=== PATIENT | male | born 1955 | race Caucasian/White ===

== ENCOUNTER 2023-11-25 13:44 | Outpatient (AMB) | payer MEDICARE, SELFPAY ==
--- NOTE | 2023-11-25 13:49 | A.OFFVIS_ITS ---
Vital Signs 11/25/23 14:02 Height 5 ft 9 in Weight 177 lb 2 oz BMI 26.2 BP 183/97 H Blood Pressure Location Rt brachial Position Sitting Pulse 83 Pulse Source Pulse Oximeter Pulse Oximetry (%) 96 Oxygen Delivery Method Room Air Intake Visit Reasons: Chronic Chest Pain After Surgery Intake Note: Pain today 12/26 [employer] Required: No Accompanied by: Self / Same As Patient Allergies clindamycin Allergy (Unknown, Verified 11/25/23 13:51) Unknown HPI HPI Chronic Chest Pain After Surgery: Details: Patient is a 68 years old male with history of CABGx5, mechanical fall from ladder and subsequent osteomyelitis of sternum which resulted in blunt chest trauma (02/10/23), complicated by open wound sternum and mediastinum 30 cm x 8 cm, with exposed heart, s/p reconstruction anterior chest wall with bilateral pectoralis major myocutaneous flap and open biopsy of sternum bone and treatment of sternum osteomyelitis, presents today for initial evaluation of chronic chest pain. He underwent 12 surgeries, wound Vac therapy and flap procedure and was [place] [facility] [place] this time. In July 2023, he underwent C6-C7 ACDF for disc herniation by Dr. Suero, [facility] He also had L5-S1 lumbar fusion with 2 screws and a raul in 2018. Denies any recent trauma, injury or falls. Chest wall pain has been chronic and unbearable since 01/2023. He is unable to sleep at night due to pain. Since reconstructive chest surgery, he has difficulty lifting his arms above heart level which causes increase pain in his shoulders. Patient has been taking Tylenol, gabapentin, ad mirtazapine with mild relief. He is has pending liver US to follow up on chronically elevated liver enzymes (ALP) and previous cholecystectomy in 2020. Patient is interested in interventional treatments to address his chest wall pain. Denies any fever, chills, chest pain, dizziness, shortness of breaths, visual disturbances, nausea, weakness, bladder or bowel dysfunction or saddle anesthesia. Location: Chest s/p plastic surgery after treatment for osteomyelitis of sternum Duration: Chronic, constant, unbearable since February 2023 Characteristics of symptom or complaint: Aching, stabbing, tightness, dull, sore, heavy, squeezing, tiring Aggravating or associated factors: Movements, standing, pulling, coughing, sneezing, lifting arms, sleeping Relieving factors: Tried opioids, gabapentin 100 mg TID, supportive pillow Treatment: PT and Cardiac rehab [address] [facility] Medical History (Updated 11/25/23 @ 14:40 by HORACIO Baxter) Chest pain Blunt chest trauma Hyperlipidemia COPD (chronic obstructive pulmonary disease) IBS (irritable bowel syndrome) Insomnia Tobacco abuse disorder Hypertension Hematuria History of esophageal reflux Depression Back pain Apnea ASHD (arteriosclerotic heart disease) Asthma Surgical History (Updated 11/25/23 @ 20:32 by HORACIO Baxter) History of thoracic surgery (~01/2023) Hx of cholecystectomy (~2020) S/P CABG x 5 (~12/2022) Social History (Updated 11/25/23 @ 14:15 by Traci Smith) Alcohol intake: current Alcohol intake frequency: holidays/special occasions only Patient Tobacco Use Status: Current someday Tobacco user Tobacco use type: Cigarette Review of Systems Const All systems reviewed & are unremarkable except as noted in HPI and below Physical Exam Vital Signs: Last Vital Signs Pulse 83 11/25/23 14:02 BP 183/97 H 11/25/23 14:02 Pulse Ox 96 11/25/23 14:02 Oxygen Delivery Method Room Air 11/25/23 14:02 BMI result Body Mass Index 26.2 General: Appears afebrile. Alert and oriented. Mood and affect appropriate. Follows and participates in conversation appropriately. Respiratory effort is unlabored. No cough. Able to transition from sit to stand unassisted. Ambulates with bilaterally normal heel strike and toe off. Chest Other: Chest wall deformity r/t previous surgeries. Multiple well healed scars to chest wall and RUQ. +Allodynia with skin discoloration distal thoracic midline scars. Chest palpation & inspection: abnormal inspection of the chest pigeon chest (pectus carinatum), tenderness sternum and costochondral junction and No rash Resp Effort & Inspection: normal respiratory effort, able to speak in complete sentences, no cough, no respiratory distress and no use of accessory muscles General: Yes no CVA tenderness Back/Spine/Pelvis Back: no CVA tenderness Cervical Spine: loss of normal cervical lordosis, cervical muscular tenderness, Cervical spine scars present and No Cervical spine tenderness Thoracic/Lumbar Spine: thoracic and lumbar spine normal to inspection, Thoracic/lumbar spine scar(s), kyphosis, Thoracic/lumbar scoliosis, thoracic spinal tenderness (mid thoracic) and No lumbar spinal tenderness Extrem General: Yes capillary refill normal, Yes no clubbing, cyanosis or edema and Yes no calf tenderness Assessment & Plan Assessment & Plan (1) Chronic chest wall pain: Code(s): R07.89 - Other chest pain; G89.29 - Other chronic pain Category: Medical (2) Bilateral shoulder pain: Code(s): M25.511 - Pain in right shoulder; M25.512 - Pain in left shoulder Category: Medical (3) History of thoracic surgery: Onset Date: ~01/2023 Comment: [facility] [place]: open wound sternum and mediastinum 30 cm x 8 cm, with exposed heart, s/p reconstruction anterior chest wall with bilateral pectoralis major myocutaneous flap and open biopsy of sternum bone and treatment of osteomyelitis of sternum Code(s): Z98.890 - Other specified postprocedural states Category: Surgical Plan Schedule Pectoral Interfascial Plane Block with local and US guidance. Expectations, risks and benefits were reviewed. Patient is aware he will be contacted to schedule this procedure. All questions were answered and the p atient is in agreement of plan. Follow-up after injections and sooner as needed. Anticoagulation: Patient on anticoagulation (Aspirin) and instructions given on when to pause with prescribing physician permission (Dr. Art-[facility]). Justification for interventional therapy: ? Patient with average pain > 6/10 ? Patient has exhausted conservative therapy The risks, consequences, alternatives, and benefits of various treatment options were discussed with the patient in great detail, including conservative management, injections and procedures. Medications: New diclofenac sodium 1% (Arthritis Pain (diclofenac)) 4 grams topical QID 100 grams 1RF pain M25.511 - Pain in right shoulder, M25.512 - Pain in left shoulder capsaicin 0.1% (Arthritis Pain Relief (capsaicin)) do not wash area for at least 30 min after application 1 appl topical TID 60 grams 1RF pain G89.29 - Other chronic pain, R07.89 - Other chest pain Coding Level of Care Code New Pt Level 4 (57081) Diagnoses Chronic chest wall pain R07.89; G89.29 Bilateral shoulder pain M25.511; M25.512 History of thoracic surgery Z98.890
[2023-11-25 14:02] VITALS: BP 183/97; PULSE 83; O2SAT 96; BMI 26.2
== END 2023-11-25 14:48 | disposition home or self-care (01) ==
PROVIDERS: PCP Internal Medicine; Visit Provider Nurse Practitioner Family
DX: R07.89 Other chest pain (principal); G89.29 Other chronic pain; M25.511 Pain in right shoulder; M25.512 Pain in left shoulder; Z98.890 Other specified postprocedural states
CPT/HCPCS: 99204

== ENCOUNTER → 2023-11-25 13:44 | Outpatient (BNVA) | payer MEDICARE, SELFPAY | PROVIDERS: PCP Internal Medicine; Visit Provider Nurse Practitioner Family | DX: R07.89 Other chest pain (principal); M25.511 Pain in right shoulder; M25.512 Pain in left shoulder; G89.29 Other chronic pain; Z98.890 Other specified postprocedural states | CPT/HCPCS: 99202 ==

== ENCOUNTER 2023-12-12 09:59 | Outpatient (AMB) | payer MEDICARE, SELFPAY ==
--- NOTE | 2023-12-12 10:04 | A.OFFVIS_ITS ---
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 He has a history of CABGx5, mechanical fall from ladder, and subsequent osteomyelitis of the sternum, which resulted in blunt chest trauma (02/10/23), complicated by open wound sternum and mediastinum 30 cm x 8 cm with exposed heart, s/p reconstruction of the of the anterior chest wall with bilateral pectoralis major myocutaneous flap, and an open biopsy of the sternum bone and treatment of sternum osteomyelitis. He underwent 12 surgeries, wound vac therapy, and a flap procedure and was hospitalized at [facility] for one month during this time. In July 2023, he underwent C6-C7 ACDF for disc herniation by Dr. Suero, [facility]. He also had L5-S1 lumbar fusion with 2 screws and a raul in 2018. His chest wall pain has been chronic and unbearable since 01/2023. He is unable to sleep at night due to pain. Since reconstructive chest surgery, he has difficulty lifting his arms above heart level, which causes increased pain in his shoulders. He is unable to lay down flat on the surface. He wakes up at night with severe pain in his arm. He has been taking Tylenol, gabapentin, and mirtazapine with mild relief. He has not tried spinal cord stimulator devices in the past. COUNTS INCLUDE 234 BEDS AT THE [facility] Medical History (Updated 11/25/23 @ 14:40 by HORACIO Baxter) Chest pain Blunt chest trauma Hyperlipidemia COPD (chronic obstructive pulmonary disease) IBS (irritable bowel syndrome) Insomnia Tobacco abuse disorder Hypertension Hematuria History of esophageal reflux Depression Back pain Apnea ASHD (arteriosclerotic heart disease) Asthma Surgical History (Updated 11/25/23 @ 20:32 by HORACIO Baxter) History of thoracic surgery (~01/2023) Hx of cholecystectomy (~2020) S/P CABG x 5 (~12/2022) Social History (Updated 11/25/23 @ 14:15 by Traci Smith) Alcohol intake: current Alcohol intake frequency: holidays/special occasions only Patient Tobacco Use Status: Current someday Tobacco user Tobacco use type: Cigarette Review of Systems Const All systems reviewed & are unremarkable except as noted in HPI and below Physical Exam Vital Signs: Last Vital Signs Pulse 109 H 12/12/23 10:06 BP 187/101 H 12/12/23 10:06 Pulse Ox 94 12/12/23 10:06 Oxygen Delivery Method Room Air 12/12/23 10:06 BMI result Body Mass Index 25.1 General: Appears afebrile. Alert and oriented. Mood and affect appropriate. Follows and participates in conversation appropriately. Respiratory effort is unlabored. Able to transition from sit to stand unassisted. Ambulates with bilaterally normal heel strike and toe off. Results Reviewed Results Reviewed: No imaging is available for review. Assessment & Plan Assessment & Plan (1) Chronic chest wall pain: Code(s): R07.89 - Other chest pain; G89.29 - Other chronic pain Category: Medical Plan Discussed SCS and intrathecal drug delivery as possible treatment options. I provided the patient with a brochure for SCS and he requested time to think about it. He called us 2 days later to inform that he is not interested in proceeding with spinal cord stimulation. The only other potential therapeutic option is systemic low-dose opioid therapy. I did not specifically discuss this with the patient but it could be considered if he is willing to comply with the requirements for chronic opiate program. He will follow-up as needed with Sarah Dumas NP. Scribed for Dr. Liang by Cuco Aleman, director medical safety, on 12/12/2023. I, Dr. Liang, have personally reviewed and agree with the information entered by the scribe. Coding Level of Care Code Est Pt Level 3 (06380) Diagnoses Chronic chest wall pain R07.89; G89.29
[2023-12-12 10:06] VITALS: BP 187/101; PULSE 109; O2SAT 94; BMI 25.1
== END 2023-12-12 10:48 | disposition home or self-care (01) ==
PROVIDERS: PCP Internal Medicine; Visit Provider Internal Medicine
DX: R07.89 Other chest pain (principal); G89.29 Other chronic pain
CPT/HCPCS: 99213

== ENCOUNTER → 2023-12-12 09:59 | Outpatient (BNVA) | payer MEDICARE, SELFPAY | PROVIDERS: PCP Internal Medicine; Visit Provider Internal Medicine | DX: R07.89 Other chest pain (principal); G89.29 Other chronic pain | CPT/HCPCS: 99212; J2795; J3301 ==

== ENCOUNTER 2023-12-16 10:24 | Outpatient (REF) | payer MEDICARE, SELFPAY | END 2023-12-16 10:25 | disposition home or self-care (01) | LOC: HO.LAB 10:24 | PROVIDERS: PCP Internal Medicine; Visit Provider Internal Medicine | DX: Z13.89 Encounter for screening for other disorder (principal) ==

== ENCOUNTER 2024-01-02 10:14 | Outpatient (AMB) | payer MEDICARE, SELFPAY ==
--- NOTE | 2024-01-02 10:16 | MHC.OFFVIS ---
Vital Signs 01/02/24 10:18 Height 5 ft 9 in Weight 177 lb BMI 26.1 BP 140/88 H Blood Pressure Location Rt brachial Position Sitting Respiration 15 Pulse 112 H Pulse Source Pulse Oximeter Pulse Oximetry (%) 92 Oxygen Delivery Method Room Air Intake Visit Reasons: UDS review/opioid contract Allergies clindamycin Allergy (Unknown, Verified 01/02/24 10:21) Unknown Medication List - Last Reconciled 01/02/24 by Gia Talley LPN alpha lipoic acid 600 mg PO DAILY ascorbic acid (vitamin C) mg PO aspirin 81 mg PO DAILY atorvastatin 80 mg PO DAILY capsaicin 0.1% (Arthritis Pain Relief (capsaicin)) 1 appl topical TID diclofenac sodium 1% (Arthritis Pain (diclofenac)) 4 grams topical QID fluticasone propionate 50 mcg/actuation 2 sprays intranasal DAILY gabapentin 100 mg PO TID lisinopril 5 mg PO DAILY metoprolol tartrate 75 mg PO DAILY mirtazapine 7.5 mg PO BEDTIME omeprazole 20 mg PO DAILY terazosin 5 mg PO BID HPI HPI UDS review/opioid contract: Details: 68-year-old male who presents today to the office for a UDS review and opioid contract. He tried to lay down on his chest but lasted only two seconds with support, so he is unable to proceed with the pain pump or SCS device trial. He is currently taking gabapentin 300 mg once daily. He wants to increase his dose of gabapentin 300 mg to T.I.D. He denies any history of kidney disease. He occasionally takes Tylenol as needed for headaches. He has regular bowel movements. COUNT INCLUDES [facility] Medical History (Updated 11/25/23 @ 14:40 by HORACIO Baxter) Chest pain Blunt chest trauma Hyperlipidemia COPD (chronic obstructive pulmonary disease) IBS (irritable bowel syndrome) Insomnia Tobacco abuse disorder Hypertension Hematuria History of esophageal reflux Depression Back pain Apnea ASHD (arteriosclerotic heart disease) Asthma Surgical History (Updated 11/25/23 @ 20:32 by HORACIO Baxter) History of thoracic surgery (~01/2023) Hx of cholecystectomy (~2020) S/P CABG x 5 (~12/2022) Social History (Updated 11/25/23 @ 14:15 by Traci Smith) Alcohol intake: current Alcohol intake frequency: holidays/special occasions only Patient Tobacco Use Status: Current someday Tobacco user Tobacco use type: Cigarette Review of Systems Const All systems reviewed & are unremarkable except as noted in HPI and below Physical Exam Vital Signs: Last Vital Signs Pulse 112 H 01/02/24 10:18 Resp 15 01/02/24 10:18 BP 140/88 H 01/02/24 10:18 Pulse Ox 92 01/02/24 10:18 Oxygen Delivery Method Room Air 01/02/24 10:18 BMI result Body Mass Index 26.1 General: Appears afebrile. Alert and oriented. Mood and affect appropriate. Follows and participates in conversation appropriately. Respiratory effort is unlabored. Able to transition from sit to stand unassisted. Ambulates with bilaterally normal heel strike and toe off. Results Reviewed Results Reviewed: No imaging is available for review. Assessment & Plan Assessment & Plan (1) Chronic chest wall pain: Code(s): R07.89 - Other chest pain; G89.29 - Other chronic pain Category: Medical Plan Prescription opioid risk assessment and opioid contract paperwork was reviewed with and signed by the patient. I uptitrated the dose of the gabapentin 300 mg from once daily. Advised him to take gabapentin 300 mg B.I.D. for the first one week and then increase it to 300 mg T.I.D. I prescribed Percocet 5 mg B.I.D. If he tolerates it well, he needs to follow up monthly for the pill count and refill. I advised him to hold Percocet until he reaches the highest dose of the gabapentin. Follow up in one month with Sarah. Scribed for Dr. Liang by Cuco Aleman, medical interpreter, on 01/02/2024. I, Dr. Liang, have personally reviewed and agree with the information entered by the scribe. Medications: New gabapentin 300 mg PO TID 90 caps 0RF oxycodone-acetaminophen 5-325 mg Partial Fill upon patient request. 1 tab PO BID PRN 60 tabs 0RF pain Scribe Plan - Not visible on output: . Coding Level of Care Code Est Pt Level 4 (23992) Diagnoses Chronic chest wall pain R07.89; G89.29
[2024-01-02 10:18] VITALS: BP 140/88; PULSE 112; RESP 15; O2SAT 92; BMI 26.1
== END 2024-01-02 10:42 | disposition home or self-care (01) ==
PROVIDERS: PCP Internal Medicine; Visit Provider Internal Medicine
DX: R07.89 Other chest pain (principal); G89.29 Other chronic pain
CPT/HCPCS: 99214

== ENCOUNTER → 2024-01-02 10:14 | Outpatient (BNVA) | payer MEDICARE, SELFPAY | PROVIDERS: PCP Internal Medicine; Visit Provider Internal Medicine | DX: R07.89 Other chest pain (principal); G89.29 Other chronic pain; Z79.899 Other long term (current) drug therapy | CPT/HCPCS: 99212 ==

== ENCOUNTER 2024-01-30 10:17 | Outpatient (AMB) | payer MEDICARE, SELFPAY ==
--- NOTE | 2024-01-30 10:18 | A.OFFVIS_ITS ---
Vital Signs 01/30/24 10:27 01/30/24 10:28 01/30/24 10:49 Height 5 ft 9 in Weight 174 lb BMI 25.7 BP 193/95 H 190/79 H 126/82 Blood Pressure Location Rt brachial Lt brachial Lt brachial Position Sitting Sitting Sitting Pulse 82 82 Pulse Source Pulse Oximeter Pulse Oximeter Pulse Oximetry (%) 98 Oxygen Delivery Method Room Air Comment BP manual cuff Intake Visit Reasons: Pill Count Intake Note: Wilfredo comes in today for a pill count to oxycodone-acetaminophen, patient should have 18 tablets and presents with 29 tablets which he last took today 01/30/24 8am. Pain today 4/10 [employer] Required: No Accompanied by: Self / Same As Patient Allergies clindamycin Allergy (Unknown, Verified 01/30/24 10:28) Unknown HPI Comments Details: Patient presents today for a pill count. Patient is supposed to have #18 pills, in his possession has #29 pills. This demonstrates a responsible attitude in regards to the medication regimen. Patient continues to report reasonable pain relief on his regimen of oxycodone-acetaminophen 5-325 mg 1 tab BID prn with no noted side effects. Denies any constipation, nausea, sedation, dizziness, or urinary retention. Reports regular BMs, twice daily. Recent A1C=6.4. Patient reports opioid medication allows him to be less symptomatic and more functional. Pain is rated at 4/10. He also takes gabapentin with good tolerance and no side effects. Denies any recent cough, cold, infection, fever, any significant changes in her medical history, medications or recent hospitalizations. PRIOR Dr. Liang: 68-year-old male who presents today to the office for a UDS review and opioid contract. He tried to lay down on his chest but lasted only two seconds with support, so he is unable to proceed with the pain pump or SCS device trial. He is currently taking gabapentin 300 mg once daily. He wants to increase his dose of gabapentin 300 mg to T.I.D. He denies any history of kidney disease. He occasionally takes Tylenol as needed for headaches. He has regular bowel movements. PRIOR: 68-year-old male who presents today to the office for a post-sternotomy pain. He has a history of CABGx5, mechanical fall from ladder, and subsequent osteomyelitis of the sternum, which resulted in blunt chest trauma (02/10/23), complicated by open wound sternum and mediastinum 30 cm x 8 cm with exposed heart, s/p reconstruction of the of the anterior chest wall with bilateral pectoralis major myocutaneous flap, and an open biopsy of the sternum bone and treatment of sternum osteomyelitis. He underwent 12 surgeries, wound vac therapy, and a flap procedure and [place] [facility] [place]. In July 2023, he underwent C6-C7 ACDF for disc herniation [place] Dr. Suero, [facility] [place] He also had L5-S1 lumbar fusion with 2 screws and a raul in 2018. His chest wall pain has been chronic and unbearable since 01/2023. He is unable to sleep at night due to pain. Since reconstructive chest surgery, he has difficulty lifting his arms above heart level, which causes increased pain in his shoulders. He is unable to lay down flat on the surface. He wakes up at night with severe pain in his arm. He has been taking Tylenol, gabapentin, and mirtazapine with mild relief. He has not tried spinal cord stimulator devices in the past. [facility] Medical History Chest pain Blunt chest trauma Hyperlipidemia COPD (chronic obstructive pulmonary disease) IBS (irritable bowel syndrome) Insomnia Tobacco abuse disorder Hypertension Hematuria History of esophageal reflux Depression Back pain Apnea ASHD (arteriosclerotic heart disease) Asthma Surgical History History of thoracic surgery (~01/2023) Hx of cholecystectomy (~2020) S/P CABG x 5 (~12/2022) Social History Alcohol intake: current Alcohol intake frequency: holidays/special occasions only Patient Tobacco Use Status: Current someday Tobacco user Tobacco use type: Cigarette Review of Systems Const All systems reviewed & are unremarkable except as noted in HPI and below Physical Exam Vital Signs: Last Vital Signs Pulse 82 01/30/24 10:28 BP 190/79 H 01/30/24 10:28 Pulse Ox 98 01/30/24 10:27 Oxygen Delivery Method Room Air 01/30/24 10:27 BMI result Body Mass Index 25.7 General: Appears afebrile. Alert and oriented. Mood and affect appropriate. Follows and participates in conversation appropriately. Respiratory effort is unlabored. Able to transition from sit to stand unassisted. Ambulates with bilaterally normal heel strike and toe off. Results Reviewed Results Reviewed: No imaging is available for review. Assessment & Plan Assessment & Plan (1) Chronic chest wall pain: Code(s): R07.89 - Other chest pain; G89.29 - Other chronic pain Category: Medical (2) Bilateral shoulder pain: Code(s): M25.511 - Pain in right shoulder; M25.512 - Pain in left shoulder Category: Medical (3) History of thoracic surgery: Onset Date: ~01/2023 Comment[place] [facility] [place] open wound sternum and mediastinum 30 cm x 8 cm, with exposed heart, s/p reconstruction anterior chest wall with bilateral pectoralis major myocutaneous flap and open biopsy of sternum bone and treatment of osteomyelitis of sternum Code(s): Z98.890 - Other specified postprocedural states Category: Surgical Plan Patient has shown accountability for her medication regimen and the pill count was accurate. There is no evidence of misuse, abuse or diversion at this time. [employer] reviewed. Refill for Percocet 5 mg-325 mg BID prn is sent with advanced date of 02/11/24. Patient is aware of monitoring for side effects. Narcan sent today, educated patient on its use and administration. Refill sent for gabapentin per patient's request. All questions were answered and the patient is in agreement with the plan. Follow up in 4 weeks for pill count and sooner as needed. Medications: New naloxone 4 mg/actuation (Narcan) spray 1 dose into ONE nostril; alternate nostrils w each dose until help arrives 4 mg intranasal Q2M PRN 2 ea 0RF opioid overdose Changed From gabapentin 300 mg PO TID 90 caps 0RF G89.29 - Other chronic pain, R07.89 - Other chest pain, Z98.890 - Other specified postprocedural states To gabapentin 300 mg PO TID 30 days 90 caps 3RF pain G89.29 - Other chronic pain, R07.89 - Other chest pain, Z98.890 - Other specified postprocedural states From oxycodone-acetaminophen 5-325 mg Partial Fill upon patient request. 1 tab PO BID PRN 60 tabs 0RF pain G89.29 - Other chronic pain, M25.511 - Pain in right shoulder, M25.512 - Pain in left shoulder, R07.89 - Other chest pain, Z98.890 - Other specified postprocedural states To oxycodone-acetaminophen 5-325 mg Partial Fill upon patient request. 1 tab PO BID 30 days PRN 60 tabs 0RF pain G89.29 - Other chronic pain, M25.511 - Pain in right shoulder, M25.512 - Pain in left shoulder, R07.89 - Other chest pain, Z98.890 - Other specified postprocedural states Scribe Plan - Not visible on output: . Coding Level of Care Code Est Pt Level 4 (46621) Complex EM visit Add On G2211 Diagnoses Chronic chest wall pain R07.89; G89.29 Bilateral shoulder pain M25.511; M25.512 History of thoracic surgery Z98.890
[2024-01-30 10:27] VITALS: BP 193/95; PULSE 82; O2SAT 98; BMI 25.7
[2024-01-30 10:28] VITALS: BP 190/79; PULSE 82
[2024-01-30 10:49] VITALS: BP 126/82
== END 2024-01-30 10:53 | disposition home or self-care (01) ==
PROVIDERS: PCP Internal Medicine; Visit Provider Nurse Practitioner Family
DX: R07.89 Other chest pain (principal); G89.29 Other chronic pain; M25.511 Pain in right shoulder; M25.512 Pain in left shoulder; Z98.890 Other specified postprocedural states
CPT/HCPCS: 99214; G2211

== ENCOUNTER → 2024-01-30 10:17 | Outpatient (BNVA) | payer MEDICARE, SELFPAY | PROVIDERS: PCP Internal Medicine; Visit Provider Nurse Practitioner Family | DX: R07.89 Other chest pain (principal); G89.29 Other chronic pain; M25.511 Pain in right shoulder; M25.512 Pain in left shoulder; Z51.81 Encounter for therapeutic drug level monitoring; Z79.891 Long term (current) use of opiate analgesic; Z98.890 Other specified postprocedural states | CPT/HCPCS: 99212 ==

== ENCOUNTER 2024-02-27 10:21 | Outpatient (AMB) | payer MEDICARE, SELFPAY ==
--- NOTE | 2024-02-27 10:23 | A.OFFVIS_ITS ---
Vital Signs 02/27/24 10:34 02/27/24 10:35 Height 5 ft 9 in Weight 174 lb BMI 25.7 BP 210/112 H 150/78 H Blood Pressure Location Rt brachial Lt brachial Position Sitting Sitting Pulse 101 H Pulse Source Pulse Oximeter Pulse Oximetry (%) 96 Oxygen Delivery Method Room Air Comment BP recheck manually Intake Visit Reasons: Pill Count Intake Note: Wilfredo comes in today for a pill count to oxycodone-acetaminophen, patient should have 32 tablets and presents with 41 tablets which he last took today 03/09/24 at 8:15am. 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 Patient is supposed to have #32 pills, in his possession has #41 pills. This demonstrates a responsible attitude in regards to the medication regimen. Patient continues to report adequate analgesia on his current regimen of oxycodone-acetaminophen 5-325 mg 1 tab BID prn with no noted side effects. Denies any constipation, nausea, sedation, dizziness, or urinary retention. Patient reports opioid medication allows him to be less symptomatic and more functional. Pain is rated at 4/10. He also takes gabapentin with good tolerance and no side effects. Patient reports he recently completed Holter monitoring and due to Echo in April per Cardiology. He also underwent recent Pulmonary evaluation and was started on Combivent. Denies any recent cough, cold, infection, fever, or any other significant changes in her medical history, medications or recent hospitalizations. PRIOR Dr. Liang: 68-year-old male who presents today to the office for a UDS review and opioid contract. He tried to lay down on his chest but lasted only two seconds with support, so he is unable to proceed with the pain pump or SCS device trial. He is currently taking gabapentin 300 mg once daily. He wants to increase his dose of gabapentin 300 mg to T.I.D. He denies any history of kidney disease. He occasionally takes Tylenol as needed for headaches. He has regular bowel movements. PRIOR: 68-year-old male who presents today to the office for a post-sternotomy pain. He has a history of CABGx5, mechanical fall from ladder, and subsequent osteomyelitis of the sternum, which resulted in blunt chest trauma (02/10/23), complicated by open wound sternum and mediastinum 30 cm x 8 cm with exposed heart, s/p reconstruction of the of the anterior chest wall with bilateral pectoralis major myocutaneous flap, and an open biopsy of the sternum bone and treatment of sternum osteomyelitis. He underwent 12 surgeries, wound vac therapy, and a flap procedure and was hospitalized at [facility] [place] for one month during this time. In July 2023, he underwent C6-C7 ACDF for disc herniation by Dr. Suero, [facility] [place]. He also had L5-S1 lumbar fusion with 2 screws and a raul in 2018. His chest wall pain has been chronic and unbearable since 01/2023. He is unable to sleep at night due to pain. Since reconstructive chest surgery, he has difficulty lifting his arms above heart level, which causes increased pain in his shoulders. He is unable to lay down flat on the surface. He wakes up at night with severe pain in his arm. He has been taking Tylenol, gabapentin, and mirtazapine with mild relief. He has not tried spinal cord stimulator devices in the past. [facility] Medical History Chest pain Blunt chest trauma Hyperlipidemia COPD (chronic obstructive pulmonary disease) IBS (irritable bowel syndrome) Insomnia Tobacco abuse disorder Hypertension Hematuria History of esophageal reflux Depression Back pain Apnea ASHD (arteriosclerotic heart disease) Asthma Surgical History History of thoracic surgery (~01/2023) Hx of cholecystectomy (~2020) S/P CABG x 5 (~12/2022) Social History Alcohol intake: current Alcohol intake frequency: holidays/special occasions only Patient Tobacco Use Status: Current someday Tobacco user Tobacco use type: Cigarette Review of Systems Const All systems reviewed & are unremarkable except as noted in HPI and below Physical Exam Vital Signs: Last Vital Signs Pulse 101 H 02/27/24 10:34 BP 150/78 H 02/27/24 10:35 Pulse Ox 96 02/27/24 10:34 Oxygen Delivery Method Room Air 02/27/24 10:34 BMI result Body Mass Index 25.7 General: Appears afebrile. Alert and oriented. Mood and affect appropriate. Follows and participates in conversation appropriately. Respiratory effort is unlabored. Able to transition from sit to stand unassisted. Ambulates with bilaterally normal heel strike and toe off. Extrem General: Yes capillary refill normal, Yes no clubbing, cyanosis or edema and Yes no calf tenderness Psych Appearance: grossly normal and well kempt Mental Status: mental status grossly normal Speech and movement: Normal speech and movement present and Clear speech present Affect: normal affect Attitude: cooperative Thought process: Normal thought process present Thought content: Normal thought content present, suicidality (none), no hallucinations and No Depressive thoughts present Insight: Good insight present (Psych) Judgement: Good judgement present (Psych) Results Reviewed Results Reviewed: No imaging is available for review. Assessment & Plan Assessment & Plan (1) Chronic chest wall pain: Code(s): R07.89 - Other chest pain; G89.29 - Other chronic pain Category: Medical (2) Bilateral shoulder pain: Code(s): M25.511 - Pain in right shoulder; M25.512 - Pain in left shoulder Category: Medical (3) History of thoracic surgery: Onset Date: ~01/2023 Comment: [facility] [place] 02/10/23: open wound sternum and mediastinum 30 cm x 8 cm, with exposed heart, s/p reconstruction anterior chest wall with bilateral pectoralis major myocutaneous flap and open biopsy of sternum bone and treatment of osteomyelitis of sternum Code(s): Z98.890 - Other specified postprocedural states Category: Surgical (4) Opioid contract exists: Code(s): Z79.891 - terminal superintendent (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 There is no evidence of misuse, abuse or diversion at this time. [employer] reviewed. Refill for Percocet 5 mg-325 mg BID prn is sent with advanced date of 03/16/24. Patient is aware of monitoring for side effects. Narcan sent today, educated patient on its use and administration. Continue gabapentin as needed. All questions were answered and the patient is in agreement with the plan. Follow up in one month for pill count and sooner as needed. Medications: Refilled oxycodone-acetaminophen 5-325 mg Partial Fill upon patient request. 1 tab PO BID 30 days PRN 60 tabs 0RF pain G89.29 - Other chronic pain, M25.511 - Pain in right shoulder, M25.512 - Pain in left shoulder, R07.89 - Other chest pain, Z98.890 - Other specified postprocedural states Scribe Plan - Not visible on output: . Coding Level of Care Code Est Pt Level 4 (34803) Complex EM visit Add On G2211 Diagnoses Chronic chest wall pain R07.89; G89.29 Bilateral shoulder pain M25.511; M25.512 History of thoracic surgery Z98.890 Opioid contract exists Z79.896
[2024-02-27 10:34] VITALS: BP 210/112; PULSE 101; O2SAT 96; BMI 25.7
[2024-02-27 10:35] VITALS: BP 150/78
== END 2024-02-27 10:57 | disposition home or self-care (01) ==
PROVIDERS: PCP Internal Medicine; Visit Provider Nurse Practitioner Family
DX: R07.89 Other chest pain (principal); G89.29 Other chronic pain; M25.511 Pain in right shoulder; M25.512 Pain in left shoulder; Z98.890 Other specified postprocedural states; Z79.891 Long term (current) use of opiate analgesic
CPT/HCPCS: 99214; G2211

== ENCOUNTER → 2024-02-27 10:21 | Outpatient (BNVA) | payer MEDICARE, SELFPAY | PROVIDERS: PCP Internal Medicine; Visit Provider Nurse Practitioner Family | DX: Z51.81 Encounter for therapeutic drug level monitoring (principal); R07.89 Other chest pain; M25.511 Pain in right shoulder; M25.512 Pain in left shoulder; G89.29 Other chronic pain; Z79.891 Long term (current) use of opiate analgesic; Z98.890 Other specified postprocedural states | CPT/HCPCS: 99212 ==

== ENCOUNTER 2024-03-26 10:14 | Outpatient (AMB) | payer MEDICARE, SELFPAY ==
--- NOTE | 2024-03-26 10:15 | A.OFFVIS_ITS ---
Vital Signs 03/26/24 10:24 Height 5 ft 9 in Weight 178 lb BMI 26.3 BP 142/80 H Blood Pressure Location Rt brachial Position Sitting Pulse 72 Pulse Source Pulse Oximeter Pulse Oximetry (%) 96 Oxygen Delivery Method Room Air Intake Visit Reasons: pill count Intake Note: Wilfredo comes in today for a pill count to oxycodone-acetaminophen, patient should have 40 tablets and presents with 50 tablets which he last took today 03/26/24 at 8:30am. 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 Patient is supposed to have #40 pills, in his possession has #50 pills. This demonstrates a responsible attitude in regards to the medication regimen. Patient reports reasonable analgesia on his current regimen of oxycodone-acetaminophen 5-325 mg 1 tab BID prn with no noted side effects. Denies any constipation, nausea, sedation, dizziness, or urinary retention. Patient reports opioid medication allows him to be less symptomatic and more functional. Pain is rated at 6/10. He also takes gabapentin with good tolerance and no side effects. Patient reports he recently completed Holter monitoring with good results. He is undergoing Echo on 05/05/24 per Cardiology. Reports good tolerance with Combivent for COPD and is scheduled for lung xray next week. Denies any recent cough, cold, infection, fever, or any other significant changes in her medical history, medications or recent hospitalizations. PRIOR Dr. Liang: 68-year-old male who presents today to the office for a UDS review and opioid contract. He tried to lay down on his chest but lasted only two seconds with support, so he is unable to proceed with the pain pump or SCS device trial. He is currently taking gabapentin 300 mg once daily. He wants to increase his dose of gabapentin 300 mg to T.I.D. He denies any history of kidney disease. He occasionally takes Tylenol as needed for headaches. He has regular bowel movements. PRIOR: 68-year-old male who presents today to the office for a post-sternotomy pain. He has a history of CABGx5, mechanical fall from ladder, and subsequent osteomy elitis of the sternum, which resulted in blunt chest trauma (02/10/23), complicated by open wound sternum and mediastinum 30 cm x 8 cm with exposed heart, s/p reconstruction of the of the anterior chest wall with bilateral pectoralis major myocutaneous flap, and an open biopsy of the sternum bone and treatment of sternum osteomyelitis. He underwent 12 surgeries, wound vac therapy, and a flap procedure and [place] [facility] [place]. In July 2023, he underwent C6-C7 ACDF for disc herniation by Dr. Suero, [facility] [place] He also had L5-S1 lumbar fusion with 2 screws and a raul in 2018. His chest wall pain has been chronic and unbearable since 01/2023. He is unable to sleep at night due to pain. Since reconstructive chest surgery, he has difficulty lifting his arms above heart level, which causes increased pain in his shoulders. He is unable to lay down flat on the surface. He wakes up at night with severe pain in his arm. He has been taking Tylenol, gabapentin, and mirtazapine with mild relief. He has not tried spinal cord stimulator devices in the past. [facility] Medical History Chest pain Blunt chest trauma Hyperlipidemia COPD (chronic obstructive pulmonary disease) IBS (irritable bowel syndrome) Insomnia Tobacco abuse disorder Hypertension Hematuria History of esophageal reflux Depression Back pain Apnea ASHD (arteriosclerotic heart disease) Asthma Surgical History History of thoracic surgery (~01/2023) Hx of cholecystectomy (~2020) S/P CABG x 5 (~12/2022) Social History Alcohol intake: current Alcohol intake frequency: holidays/special occasions only Patient Tobacco Use Status: Current someday Tobacco user Tobacco use type: Cigarette Review of Systems Const All systems reviewed & are unremarkable except as noted in HPI and below Physical Exam General: Appears afebrile. Alert and oriented. Mood and affect appropriate. Follows and participates in conversation appropriately. Respiratory effort is unlabored. Able to transition from sit to stand unassisted. Ambulates with bilaterally normal heel strike and toe off. Resp Effort & Inspection: normal respiratory effort, able to speak in complete sentences, no cough and no stridor Extrem General: Yes capillary refill normal, Yes no clubbing, cyanosis or edema and Yes no calf tenderness Psych Appearance: grossly normal and well kempt Mental Status: mental status grossly normal Speech and movement: Normal speech and movement present and Clear speech present Affect: normal affect Attitude: cooperative Thought process: Normal thought process present Thought content: Normal thought content present, suicidality (none), no hallucinations and No Depressive thoughts present Insight: Good insight present (Psych) Judgement: Good judgement present (Psych) Results Reviewed Results Reviewed: No imaging is available for review. Assessment & Plan Assessment & Plan (1) Chronic chest wall pain: Code(s): R07.89 - Other chest pain; G89.29 - Other chronic pain Category: Medical (2) Bilateral shoulder pain: Code(s): M25.511 - Pain in right shoulder; M25.512 - Pain in left shoulder Category: Medical (3) History of thoracic surgery: Onset Date: ~01/2023 [place] [facility] [place]: open wound sternum and mediastinum 30 cm x 8 cm, with exposed heart, s/p reconstruction anterior chest wall with bilateral pectoralis major myocutaneous flap and open biopsy of sternum bone and treatment of osteomyelitis of sternum Code(s): Z98.890 - Other specified postprocedural states Category: Surgical (4) Opioid contract exists: Code(s): Z79.891 - 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 There is no evidence of misuse, abuse or diversion at this time. [employer] reviewed. Refill for Percocet 5 mg-325 mg BID prn is sent with advanced date of 04/17/24. Patient is aware of monitoring for side effects. Narcan sent today, educated pa steffany on its use and administration. Continue gabapentin as needed. All questions were answered and the patient is in agreement with the plan. Follow up in one month for pill count and sooner as needed. Medications: Refilled oxycodone-acetaminophen 5-325 mg Partial Fill upon patient request. 1 tab PO BID 30 days PRN 60 tabs 0RF pain G89.29 - Other chronic pain, M25.511 - Pain in right shoulder, M25.512 - Pain in left shoulder, R07.89 - Other chest pain, Z98.890 - Other specified po stprocedural states Scribe Plan - Not visible on output: . Coding Level of Care Code Est Pt Level 4 (38645) Complex EM visit Add On G2211 Diagnoses Chronic chest wall pain R07.89; G89.29 Bilateral shoulder pain M25.511; M25.512 History of thoracic surgery Z98.890 Opioid contract exists Z79.899
[2024-03-26 10:24] VITALS: BP 142/80; PULSE 72; O2SAT 96; BMI 26.3
== END 2024-03-26 10:31 | disposition home or self-care (01) ==
PROVIDERS: PCP Internal Medicine; Visit Provider Nurse Practitioner Family
DX: R07.89 Other chest pain (principal); G89.29 Other chronic pain; M25.511 Pain in right shoulder; M25.512 Pain in left shoulder; Z98.890 Other specified postprocedural states; Z79.891 Long term (current) use of opiate analgesic
CPT/HCPCS: 99214; G2211

== ENCOUNTER → 2024-03-26 10:14 | Outpatient (BNVA) | payer MEDICARE, SELFPAY | PROVIDERS: PCP Internal Medicine; Visit Provider Nurse Practitioner Family | DX: Z51.81 Encounter for therapeutic drug level monitoring (principal); M25.511 Pain in right shoulder; M25.512 Pain in left shoulder; R07.89 Other chest pain; G89.29 Other chronic pain; Z79.891 Long term (current) use of opiate analgesic | CPT/HCPCS: 99212 ==

== ENCOUNTER 2024-04-23 10:15 | Outpatient (AMB) | payer MEDICARE, SELFPAY ==
--- NOTE | 2024-04-23 10:16 | A.OFFVIS_ITS ---
Vital Signs 04/23/24 10:25 04/23/24 10:26 Height 5 ft 9 in Weight 186 lb 6 oz BMI 27.5 BP 211/106 H 180/78 H Blood Pressure Location Lt brachial Lt brachial Position Sitting Sitting Pulse 72 Pulse Source Pulse Oximeter Pulse Oximetry (%) 96 Oxygen Delivery Method Room Air Comment bp recheck manually Intake Visit Reasons: PILL COUNT Intake Note: Wilfredo comes in today for pill count to oxycodone-acetaminophen, patient should have 52 tablets and presents with 66 tablets which he last took today 04/23/24 at 8:30am. 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 Patient is supposed to have #52 pills, in his possession has #66 pills. This demonstrates a responsible attitude in regards to the medication regimen. Patient reports reasonable analgesia on his current regimen of oxycodone-acetaminophen 5-325 mg 1 tab BID prn with no noted side effects. Denies any constipation, nausea, sedation, dizziness, or urinary retention. Patient reports opioid medication allows him to be less symptomatic and more functional. Pain is rated at 5/10. He also takes gabapentin with good tolerance and no side effects. Patient reports he was attempting to shovel snow yesterday and felt increased pain in his sternum so he stopped shoveling. He recently completed Holter monitoring with good results. He is undergoing Echo on 05/05/24 per Cardiology. Denies any recent cough, cold, infection, fever, chest pain or pressure, shortness of breaths or any other significant changes in her medical history, medications or recent hospitalizations. PRIOR Dr. Liang: 68-year-old male who presents today to the office for a UDS review and opioid contract. He tried to lay down on his chest but lasted only two seconds with support, so he is unable to proceed with the pain pump or SCS device trial. He is currently taking gabapentin 300 mg once daily. He wants to increase his dose of gabapentin 300 mg to T.I.D. He denies any history of kidney disease. He occasionally takes Tylenol as needed for headaches. He has regular bowel movements. PRIOR: 68-year-old male who presents today to the office for a post-sternotomy pain. He has a history of CABGx5, mechanical fall from ladder, and subsequent osteomyelitis of the sternum, which resulted in blunt chest trauma (02/10/23), complicated by open wound sternum and mediastinum 30 cm x 8 cm with exposed heart, s/p reconstruction of the of the anterior chest wall with bilateral pectoralis major myocutaneous flap, and an open biopsy of the sternum bone and treatment of sternum osteomyelitis. He underwent 12 surgeries, wound vac therapy, and a flap procedure and was hospitalized at [facility] [place] during this time. In July 2023, he underwent C6-C7 ACDF for disc herniation by Dr. Suero, [facility] [place] He also had L5-S1 lumbar fusion with 2 screws and a raul in 2018. His chest wall pain has been chronic and unbearable since 01/2023. He is unable to sleep at night due to pain. Since reconstructive chest surgery, he has difficulty lifting his arms above heart level, which causes increased pain in his shoulders. He is unable to lay down flat on the surface. He wakes up at night with severe pain in his arm. He has been taking Tylenol, gabapentin, and mirtazapine with mild relief. He has not tried spinal cord stimulator devices in the past. [facility] Medical History Chest pain Blunt chest trauma Hyperlipidemia COPD (chronic obstructive pulmonary disease) IBS (irritable bowel syndrome) Insomnia Tobacco abuse disorder Hypertension Hematuria History of esophageal reflux Depression Back pain Apnea ASHD (arteriosclerotic heart disease) Asthma Surgical History History of thoracic surgery (~01/2023) Hx of cholecystectomy (~2020) S/P CABG x 5 (~12/2022) Social History Alcohol intake: current Alcohol intake frequency: holidays/special occasions only Patient Tobacco Use Status: Current someday Tobacco user Tobacco use type: Cigarette Review of Systems Const All systems reviewed & are unremarkable except as noted in HPI and below Card Denies chest pain at rest, Denies chest pain with activity, Denies lightheadedness, Denies radiating jaw, neck or arm pain, Denies palpitations, Denies dyspnea on exertion and Denies orthopnea Resp Denies dyspnea on exertion Endo Denies palpitations Physical Exam Vital Signs: Last Vital Signs Pulse 72 04/23/24 10:25 BP 211/106 H 04/23/24 10:25 Pulse Ox 96 04/23/24 10:25 Oxygen Delivery Method Room Air 04/23/24 10:25 BMI result Body Mass Index 27.5 General: Appears afebrile. Alert and oriented. Mood and affect appropriate. Follows and participates in conversation appropriately. Respiratory effort is unlabored. Able to transition from sit to stand unassisted. Ambulates with bilaterally normal heel strike and toe off. Resp Effort & Inspection: normal respiratory effort, able to speak in complete sentences, no cough and no stridor Cardio Jugular venous distension: no JVD Rate: regular rate Peripheral pulses: Peripheral pulses 2+ throughout Extrem General: Yes capillary refill normal, Yes no clubbing, cyanosis or edema and Yes no calf tenderness Psych Appearance: grossly normal and well kempt Mental Status: mental status grossly normal Speech and movement: Normal speech and movement present and Clear speech present Affect: normal affect Attitude: cooperative Thought process: Normal thought process present Thought content: Normal thought content present, suicidality (none), no hallucinations and No Depressive thoughts present Insight: Good insight present (Psych) Judgement: Good judgement present (Psych) Results Reviewed Results Reviewed: No imaging is available for review. Assessment & Plan Assessment & Plan (1) Chronic chest wall pain: Code(s): R07.89 - Other chest pain; G89.29 - Other chronic pain Category: Medical (2) Bilateral shoulder pain: Code(s): M25.511 - Pain in right shoulder; M25.512 - Pain in left shoulder Category: Medical (3) History of thoracic surgery: Onset Date: ~01/2023 Comment: [facility] 02/10/23: open wound sternum and mediastinum 30 cm x 8 cm, with exposed heart, s/p reconstruction anterior chest wall with bilateral pectoralis major myocutaneous flap and open biopsy of sternum bone and treatment of osteomyelitis of sternum Code(s): Z98.890 - Other specified postprocedural states Category: Surgical (4) Opioid contract exists: Code(s): Z79.891 - terminal operator (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 There is no evidence of misuse, abuse or diversion at this time. [employer] reviewed. Refill for Percocet 5 mg-325 mg BID prn is sent with advanced date of 05/19/24. Patient is aware of monitoring for side effects. Narcan sent today, educated patient on its use and administration. Continue gabapentin as needed. Follow up with Cardiology as planned. Patient is undergoing Echo on 05/05/24 per Cardiology. All questions were answered and the patient is in agreement with the plan. Follow up in 4-5 weeks for pill count and sooner as needed. Medications: Refilled oxycodone-acetaminophen 5-325 mg Partial Fill upon patient request. 1 tab PO BID 30 days PRN 60 tabs 0RF pain G89.29 - Other chronic pain, M25.511 - Pain in right shoulder, M25.512 - Pain in left shoulder, R07.89 - Other chest pain, Z98.890 - Other specified postprocedural states Scribe Plan - Not visible on output: . Coding Level of Care Code Est Pt Level 4 (01608) Complex EM visit Add On G2211 Diagnoses Chronic chest wall pain R07.89; G89.29 Bilateral shoulder pain M25.511; M25.512 History of thoracic surgery Z98.890 Opioid contract exists Z79.895
[2024-04-23 10:25] VITALS: BP 211/106; PULSE 72; O2SAT 96; BMI 27.5
[2024-04-23 10:26] VITALS: BP 180/78
== END 2024-04-23 10:31 | disposition home or self-care (01) ==
PROVIDERS: PCP Internal Medicine; Visit Provider Nurse Practitioner Family
DX: R07.89 Other chest pain (principal); G89.29 Other chronic pain; M25.511 Pain in right shoulder; M25.512 Pain in left shoulder; Z98.890 Other specified postprocedural states; Z79.891 Long term (current) use of opiate analgesic
CPT/HCPCS: 99214; G2211

== ENCOUNTER → 2024-04-23 10:15 | Outpatient (BNVA) | payer MEDICARE, SELFPAY | PROVIDERS: PCP Internal Medicine; Visit Provider Nurse Practitioner Family | DX: M25.511 Pain in right shoulder (principal); M25.512 Pain in left shoulder; G89.29 Other chronic pain; R07.89 Other chest pain; Z51.81 Encounter for therapeutic drug level monitoring; Z79.891 Long term (current) use of opiate analgesic; Z98.890 Other specified postprocedural states | CPT/HCPCS: 99212 ==

== ENCOUNTER 2024-05-28 10:13 | Outpatient (AMB) | payer MEDICARE, SELFPAY ==
--- NOTE | 2024-05-28 10:14 | A.OFFVIS_ITS ---
Vital Signs 05/28/24 10:16 Height 5 ft Weight 186 lb BMI 36.3 BP 130/62 Blood Pressure Location Lt brachial Position Sitting Respiration 16 Pulse 114 H Pulse Source Pulse Oximeter Pulse Oximetry (%) 90 L Oxygen Delivery Method Room Air Intake Visit Reasons: Pill Count Intake Note: Pt states he last took percocet 05/28/24 @ 8:30am Allergies clindamycin Allergy (Unknown, Verified 05/28/24 10:19) Unknown Medication List - Last Reconciled 05/28/24 by Gia Talley LPN ascorbic acid (vitamin C) mg PO aspirin 81 mg PO DAILY atorvastatin 80 mg PO DAILY capsaicin 0.1% (Arthritis Pain Relief (capsaicin)) 1 appl topical TID diclofenac sodium 1% (Arthritis Pain (diclofenac)) 4 grams topical QID fluticasone propionate 50 mcg/actuation 2 sprays intranasal DAILY gabapentin 300 mg PO TID 30 days ipratropium-albuterol 20-100 mcg/actuation (Combivent Respimat) 1 puff in halation Q6H lisinopril 5 mg PO DAILY metoprolol tartrate 75 mg PO DAILY mirtazapine 7.5 mg PO BEDTIME naloxone 4 mg/actuation (Narcan) 4 mg intranasal Q2M PRN omeprazole 20 mg PO DAILY oxycodone-acetaminophen 5-325 mg 1 tab PO BID PRN 30 days terazosin 5 mg PO BID HPI Comments Details: Patient presents today for a pill count. Patient is supposed to have #46 pills, in his possession has #62 pills. This demonstrates a responsible attitude in regards to the medication regimen. Patient reports reasonable analgesia on his current regimen of oxycodone-acetaminophen 5-325 mg 1 tab BID prn with no noted side effects. Denies any constipation, nausea, sedation, dizziness, or urinary retention. Patient reports opioid medication allows him to be less symptomatic and more functional. Pain is rated at 6/10. He also takes gabapentin with good tolerance and no side effects. Denies any recent cough, cold, infection, fever, chest pain or pressure, shortness of breaths or any other significant changes in her medical history, medications or recent hospitalizations. PRIOR Dr. Liang: 68-year-old male who presents today to the office for a UDS review and opioid contract. He tried to lay down on his chest but lasted only two seconds with support, so he is unable to proceed with the pain pump or SCS device trial. He is currently taking gabapentin 300 mg once daily. He wants to increase his dose of gabapentin 300 mg to T.I.D. He denies any history of kidney disease. He occasionally takes Tylenol as needed for headaches. He has regular bowel movements. PRIOR: 68-year-old male who presents today to the office for a post-sternotomy pain. He has a history of CABGx5, mechanical fall from ladder, and subsequent osteomyelitis of the sternum, which resulted in blunt chest trauma (02/10/23), complicated by open wound sternum and mediastinum 30 cm x 8 cm with exposed heart, s/p reconstruction of the of the anterior chest wall with bilateral pectoralis major myocutaneous flap, and an open biopsy of the sternum bone and treatment of sternum osteomyelitis. He underwent 12 surgeries, wound vac therapy, and a flap procedure and [place] [facility] [place]. In July 2023, he underwent C6-C7 ACDF for disc herniation [place]. [place] [facility] [place] also had L5-S1 lumbar fusion with 2 screws and a raul in 2018. His chest wall pain has been chronic and unbearable since 01/2023. He is unable to sleep at night due to pain. Since reconstructive chest surgery, he has difficulty lifting his arms above heart level, which causes increased pain in his shoulders. He is unable to lay down flat on the surface. He wakes up at night with severe pain in his arm. He has been taking Tylenol, gabapentin, and mirtazapine with mild relief. He has not tried spinal cord stimulator devices in the past. [facility] Medical History Chest pain Blunt chest trauma Hyperlipidemia COPD (chronic obstructive pulmonary disease) IBS (irritable bowel syndrome) Insomnia Tobacco abuse disorder Hypertension Hematuria History of esophageal reflux Depression Back pain Apnea ASHD (arteriosclerotic heart disease) Asthma Surgical History History of thoracic surgery (~01/2023) Hx of cholecystectomy (~2020) S/P CABG x 5 (~12/2022) Social History Alcohol intake: current Alcohol intake frequency: holidays/special occasions only Patient Tobacco Use Status: Current someday Tobacco user Tobacco use type: Cigarette Review of Systems Const All systems reviewed & are unremarkable except as noted in HPI and below Physical Exam Vital Signs: Last Vital Signs Pulse 114 H 05/28/24 10:16 Resp 16 05/28/24 10:16 BP 130/62 05/28/24 10:16 Pulse Ox 90 L 05/28/24 10:16 Oxygen Delivery Method Room Air 05/28/24 10:16 BMI result Body Mass Index 36.3 General: Appears afebrile. Alert and oriented. Mood and affect appropriate. Follows and participates in conversation appropriately. Respiratory effort is unlabored. Able to transition from sit to stand unassisted. Ambulates with bilaterally normal heel strike and toe off. Resp Effort & Inspection: normal respiratory effort, able to speak in complete sentences, no cough and no stridor Cardio Jugular venous distension: no JVD Rate: regular rate Peripheral pulses: Peripheral pulses 2+ throughout Extrem General: Yes capillary refill normal, Yes no clubbing, cyanosis or edema and Yes no calf tenderness Psych Appearance: grossly normal and well kempt Mental Status: mental status grossly normal Speech and movement: Normal speech and movement present and Clear speech present Affect: normal affect Attitude: cooperative Thought process: Normal thought process present Thought content: Normal thought content present, suicidality (none), no hallucinations and No Depressive thoughts present Insight: Good insight present (Psych) Judgement: Good judgement present (Psych) Results Reviewed Results Reviewed: No imaging is available for review. Assessment & Plan Assessment & Plan (1) Chronic chest wall pain: Code(s): R07.89 - Other chest pain; G89.29 - Other chronic pain Category: Medical (2) Bilateral shoulder pain: Code(s): M25.511 - Pain in right shoulder; M25.512 - Pain in left shoulder Category: Medical (3) History of thoracic surgery: Onset Date: ~01/2023 [place] [facility] [place] open wound sternum and mediastinum 30 cm x 8 cm, with exposed heart, s/p reconstruction anterior chest wall with bilateral pectoralis major myocutaneous flap and open biopsy of sternum bone and treatment of osteomyelitis of sternum Code(s): Z98.890 - Other specified postprocedural states Category: Surgical (4) Opioid contract exists: Code(s): Z79.891 - custodial (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 There is no evidence of misuse, abuse or diversion at this time. [facility] reviewed. Refill for Percocet 5 mg-325 mg BID prn is sent with advanced date of 06/25/24. Patient is aware of monitoring for side effects. Narcan sent today, educated patient on its use and administration. Continue gabapentin as needed. All questions were answered and the patient is in agreement with the plan. Follow up in 4-5 weeks for pill count and sooner as needed. Medications: Refilled oxycodone-acetaminophen 5-325 mg Partial Fill upon patient request. 1 tab PO BID 30 days PRN 60 tabs 0RF pain G89.29 - Other chronic pain, M25.511 - Pain in right shoulder, M25.512 - Pain in left shoulder, R07.89 - Other chest pain, Z98.890 - Other specified postproce dural states Scribe Plan - Not visible on output: . Coding Level of Care Code Est Pt Level 4 (46609) Complex EM visit Add On G2211 Diagnoses Chronic chest wall pain R07.89; G89.29 Bilateral shoulder pain M25.511; M25.512 History of thoracic surgery Z98.890 Opioid contract exists Z79.891
[2024-05-28 10:16] VITALS: BP 130/62; PULSE 114; RESP 16; O2SAT 90; BMI 36.3
== END 2024-05-28 10:36 | disposition home or self-care (01) ==
PROVIDERS: PCP Internal Medicine; Visit Provider Nurse Practitioner Family
DX: R07.89 Other chest pain (principal); G89.29 Other chronic pain; M25.511 Pain in right shoulder; M25.512 Pain in left shoulder; Z98.890 Other specified postprocedural states; Z79.891 Long term (current) use of opiate analgesic
CPT/HCPCS: 99214; G2211

== ENCOUNTER → 2024-05-28 10:13 | Outpatient (BNVA) | payer MEDICARE, SELFPAY | PROVIDERS: PCP Internal Medicine; Visit Provider Nurse Practitioner Family | DX: Z51.81 Encounter for therapeutic drug level monitoring (principal); Z79.891 Long term (current) use of opiate analgesic; M25.511 Pain in right shoulder; M25.512 Pain in left shoulder; R07.89 Other chest pain; G89.29 Other chronic pain; Z98.890 Other specified postprocedural states | CPT/HCPCS: 99212 ==

== ENCOUNTER 2024-07-02 10:14 | Outpatient (AMB) | payer MEDICARE, SELFPAY ==
--- NOTE | 2024-07-02 10:19 | A.OFFVIS_ITS ---
Vital Signs 07/02/24 10:28 Height 5 ft 9 in Weight 189 lb 6 oz BMI 28.0 BP 132/70 Blood Pressure Location Lt brachial Position Sitting Intake Visit Reasons: PILL COUNT Intake Note: Wilfredo comes in today for a pill count to oxycodone-acetaminophen, patient should have 44 tablets and presents with 53 tablets which he last took today 07/02/24 at 8:15am. Pain today [employer] Required: No Accompanied by: Self / Same As Patient Allergies clindamycin Allergy (Unknown, Verified 07/02/24 10:29) Unknown HPI Comments Details: Patient presents today for a pill count. Patient is supposed to have #44 pills, in his possession has #53 pills. This demonstrates a responsible attitude in regards to the medication regimen. Patient reports reasonable analgesia on his current regimen of oxycodone-acetaminophen 5-325 mg 1 tab BID prn with no noted side effects. Denies any constipation, nausea, sedation, dizziness, or urinary retention. Patient reports opioid medication allows him to be less symptomatic and more functional. Pain is rated at 6/10. He also takes gabapentin with good tolerance and no side effects. Denies any recent cough, cold, infection, fever, chest pain or pressure, shortness of breaths or any other significant changes in her medical history, medications or recent hospitalizations. Patient reports he is scheduled for repeat left axillary CT scan status to follow up on recent negative left axillary biospsy at [facility]. PRIOR Dr. Liang: 68-year-old male who presents today to the office for a UDS review and opioid contract. He tried to lay down on his chest but lasted only two seconds with support, so he is unable to proceed with the pain pump or SCS device trial. He is currently taking gabapentin 300 mg once daily. He wants to increase his dose of gabapentin 300 mg to T.I.D. He denies any history of kidney disease. He occasionally takes Tylenol as needed for headaches. He has regular bowel movements. PRIOR: 68-year-old male who presents today to the office for a post-sternotomy pain. He has a history of CABGx5, mechanical fall from ladder, and subsequent osteomyelitis of the sternum, which resulted in blunt chest trauma (02/10/23), complicated by open wound sternum and mediastinum 30 cm x 8 cm with exposed heart, s/p reconstruction of the of the anterior chest wall with bilateral pect oralis major myocutaneous flap, and an open biopsy of the sternum bone and treatment of sternum osteomyelitis. He underwent 12 surgeries, wound vac therapy, and a flap procedure and was hospitalized at [facility] [place] for one month during this time. In July 2023, he underwent C6-C7 ACDF for disc herniation by Dr. Suero, [facility] [place]. He also had L5-S1 lumbar fusion with 2 screws and a raul in 2018. His chest wall pain has been chronic and unbearable since 01/2023. He is unable to sleep at night due to pain. Since reconstructive chest surgery, he has difficulty lifting his arms above heart level, which causes increased pain in his shoulders. He is unable to lay down flat on the surface. He wakes up at night with severe pain in his arm. He has been taking Tylenol, gabapentin, and mirtazapine with mild relief. He has not tried spinal cord stimulator devices in the past. [facility] Medical History Chest pain Blunt chest trauma Hyperlipidemia COPD (chronic obstructive pulmonary disease) IBS (irritable bowel syndrome) Insomnia Tobacco abuse disorder Hypertension Hematuria History of esophageal reflux Depression Back pain Apnea ASHD (arteriosclerotic heart disease) Asthma Surgical History History of thoracic surgery (~01/2023) Hx of cholecystectomy (~2020) S/P CABG x 5 (~12/2022) Social History Alcohol intake: current Alcohol intake frequency: holidays/special occasions only Patient Tobacco Use Status: Current someday Tobacco user Tobacco use type: Cigarette Review of Systems Const All systems reviewed & are unremarkable except as noted in HPI and below Physical Exam Vital Signs: Last Vital Signs BP 132/70 07/02/24 10:28 BMI result Body Mass Index 28.0 General: Appears afebrile. Alert and oriented. Mood and affect appropriate. Follows and participates in conversation appropriately. Respiratory effort is unlabored. Able to transition from sit to stand unassisted. Ambulates with bilaterally normal heel strike and toe off. Resp Effort & Inspection: normal respiratory effort, able to speak in complete sentences, no cough and no stridor Extrem General: Yes capillary refill normal, Yes no clubbing, cyanosis or edema and Yes no calf tenderness Psych Appearance: grossly normal Mental Status: mental status grossly normal Speech and movement: Normal speech and movement present and Clear speech present Affect: normal affect Attitude: cooperative Thought process: Normal thought process present Thought content: Normal thought content present, suicidality (none), no hallucinations and No Depressive thoughts present Insight: Good insight present (Psych) Judgement: Good judgement present (Psych) Results Reviewed Results Reviewed: No imaging is available for review. Assessment & Plan Assessment & Plan (1) Chronic chest wall pain: Code(s): R07.89 - Other chest pain; G89.29 - Other chronic pain Category: Medical (2) Bilateral shoulder pain: Code(s): M25.511 - Pain in right shoulder; M25.512 - Pain in left shoulder Category: Medical (3) History of thoracic surgery: Onset Date: ~01/2023 Comment: [facility] [place]: open wound sternum and mediastinum 30 cm x 8 cm, with exposed heart, s/p reconstruction anterior chest wall with bilateral pectoralis major myocutaneous flap and open biopsy of sternum bone and treatment of osteomyelitis of sternum Code(s): Z98.890 - Other specified postprocedural states Category: Surgical (4) Opioid contract exists: Code(s): 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 There is no evidence of misuse, abuse or diversion at this time. [facility]ill for Percocet 5 mg-325 mg BID prn is sent with advanced date of 07/25/24. Patient has Narcan at home. Continue gabapentin as needed. All questions were answered and the patient is in agreement with the plan. Follow up in 4-5 weeks for pill count and sooner as needed. Medications: Refilled oxycodone-acetaminophen 5-325 mg Partial Fill upon patient request. 1 tab PO BID 30 days PRN 60 tabs 0RF pain G89.29 - Other chronic pain, M25.511 - Pain in right shoulder, M25.512 - Pain in left shoulder, R07.89 - Other chest pain, Z98.890 - Other specified postprocedural states Scribe Plan - Not visible on output: . Coding Level of Care Code Est Pt Level 4 (59364) Complex EM visit Add On G2211 Diagnoses Chronic chest wall pain R07.89; G89.29 Bilateral shoulder pain M25.511; M25.512 History of thoracic surgery Z98.890 Opioid contract exists Z79.898
[2024-07-02 10:28] VITALS: BP 132/70; BMI 28.0
--- OUTSIDE RECORDS SUMMARY | 2024-07-02 11:04 | XMS_ITS | Clinical Summary ---
Author Organization [facility] Address [address] [place] [id number] Care Team Providers Care Health Assessment And Treatment Teacher Name Role Phone Cesario Hernandez MD Primary Care Provider Allergies Active Allergy Reactions Criticality Noted Date Comments Adhesive Tape Low 04/30/2023 Other reaction(s): SKIN IRRITATION Clindamycin Low 12/19/2020 Other reaction(s): CDIFF Damage to colon ( c -diff ) Medications Medication Sig Dispensed Refills Start Date End Date Status aspirin 81 MG EC tablet Take 1 tablet (81 mg total) by mouth daily. 0 03/04/2022 Active atorvastatin (LIPITOR) tablet 80 mg Take 1 tablet (80 mg total) by mouth daily. 0 10/21/2022 Active fluticasone (FLONASE) 50 MCG/ACT nasal spray spray or apply 2 sprays inside Nose. 0 Active gabapentin (NEURONTIN) 100 MG capsule Take 2 capsules (200 mg total) by mouth 3 (three) times a day. 0 Active lisinopril (PRINIVIL,ZESTRIL) tablet 5 mg Take 1 tablet (5 mg total) by mouth daily. 0 02/14/2023 Active metoprolol succinate (TOPROL-XL) 24 hr tablet 50 mg Take 1.5 tablets (75 mg total) by mouth daily. 0 02/14/2023 Active Omeprazole 20 MG TBEC Take 20 mg by mouth daily. 0 12/04/2020 Active oxyCODONE (ROXICODONE) 5 MG immediate release tablet Take 1 tablet (5 mg total) by mouth every 6 (six) hours as needed. 0 Active terazosin (HYTRIN) 5 MG capsule Take 1 capsule (5 mg total) by mouth 2 (two) times a day. 0 02/14/2023 Active Active Problems Problem Noted Date Diagnosed Date Apnea 06/16/2023 06/16/2023 Asthma 06/16/2023 06/16/2023 Back pain 06/16/2023 06/16/2023 Depression 06/16/2023 06/16/2023 GERD (gastroesophageal reflux disease) 06/16/2023 IBS (irritable bowel syndrome) 06/16/2023 0 06/16/2023 COPD (chronic obstructive pulmonary disease) 06/16/2023 Sternal wound infection 03/05/2023 06/16/19 24 Overview: Open wound sternum and mediastinum 30 cm x 8 cm with exposed heart HLD (hyperlipidemia) 01/14/2023 06/16/2023 Overview: Last Assessment & Plan: Patient has a history of hyperlipidemia as well as a history of coronary artery disease. His last LDL cholesterol was noted to be 36. He will continue his current regimen with atorvastatin 80 mg orally daily. Midline sternotomy scar 01/14/2023 06/16/19 Overview: Last Assessment & Plan: On today's visit, the patient states that he has been noticing erythema and discomfort in the lower third of his sternotomy scar. The symptoms started approximately 3 days ago. He denies any fever. On the physical exam, I noticed a 3 inches x 3 inches area of erythema, induration, and swelling in the lower third of his sternotomy scar. He has had constant discomfort in the area for the past 3 days which radiates to the right flank and worsens with cough or sneezing. Given this finding, I initially contacted the cardiac surgery office given that I am concerned about the possibility of an underlying wound infection. I was able to arrange for the patient to be evaluated later today by the cardiac surgery office at [facility]. He will be evaluated by Dr. James who is one of Dr. Pantoja's colleagues. I spoke with Dr. James regarding the patient and confirmed that the patient will be seen today at the cardiac surgery office by Dr. James. CAD (coronary artery disease) 05/02/2021 Overview: Last Assessment & Plan: Patient has a history of coronary artery disease status post CABG x3 in December 2020. He underwent a redo sternotomy due to sternal wall fracture November 2022. Recently, he was noted to have wound dehiscence. He was seen by his cardiac surgeon Dr. Pantoja and underwent wound irrigation/debridement/status post wound VAC and was treated for wound infection and sternal osteomyelitis status post pectoralis muscle flap with plastics. He was recently seen in follow-up with Dr. Pantoja and has been doing well postoperatively. He will occasionally experience sternotomy discomfort while coughing. He is aware of his restrictions. He will continue cardioprotective medical therapy with metoprolol, aspirin, and atorvastatin. Status post coronary artery bypass grafts x 5 06/16/2023 Overview: 01/08/21: 5 vessel bypass with RETANA to mid LAD, SVG to PDA, SVG to PLV, left radial artery to OM, SVG to diagonal. (Dr. Pantoja) Last Assessment & Plan: The patient had a CABG x5 at [facility] on 01/08/[address] Pantoja. On today's visit, the patient brought a report of a chest x-ray that was done at [facility] on 04/19/2022. The chest x-ray was ordered by another provider. The report states that multiple surgical clips under sternotomy wires, some broken, overlying the heart . The patient mentions that he sometimes experiences a popping sensation in the center of his chest. This occurs with certain body movements or when he lies on his left side to sleep at night. The patient states that his sensation improves when he changes his body position or when he places a pillow on top of his chest. On the physical examination, the sternotomy scar was noted to be well-healed. His wires are palpable on the physical examination but there is no evidence of wires protruding from his skin or any other skin laceration. I reviewed the image of the chest x-ray in question from 04/19/2022. The patient has a total of 7 sternotomy wires sutures. The chest x-ray does show that the bottom 2 cm suture wires are broken. The patient had a chest CT scan done at [facility] on 04/22/2022 and this study also shows that the bottom 2 sternotomy wires are broken. Review of the previous chest CT scan from 04/19/2022 showed that all of the sternotomy wires were intact at that time. As such, the separation of the bottom to externally wires happened sometime after April 2021. Speaking with the patient, he tells me that he had an incident in December 2021 where he fell from a ladder. He denies any direct chest trauma. The patient did not seek any medical attention at that time. Given these findings, I discussed the patient's case with his cardiac surgeon (Dr. Pantoja). We reviewed the images from the chest x-ray as well as the chest CT scan. After the conversation, Dr. Pantoja stated that she would see the patient in her office for further evaluation and management of these abnormalities in the bottom to sternotomy wires. I informed the patient that I talked with Dr. Pantoja and that he would be contacted by the [facility] cardiac surgery office to arrange an appointment. Status post left heart catheterization 06/16/2023 Cardiomyopathy 12/19/2020 06/16/2023 Overview: Last Assessment & Plan: Patient has a history of ischemic cardiomyopathy. His last echocardiogram in October 2022 showed LVEF to be 55 to 60%. At this point, we will continue current therapies. HTN (hypertension) 12/18/2020 06/16/2023 Overview: Last Assessment & Plan: Patient has a history of hypertension. His blood pressure is noted to be well controlled today. We will continue his current antihypertensive medication regimen with lisinopril and metoprolol. PVC (premature ventricular contraction) 12/19/19 21 06/16/2023 Overview: Last Assessment & Plan: The patient has a history of frequent PVCs with a 24% PVC burden on a Holter monitor that was done in November 2020. An ischemic evaluation led to the discovery of multivessel coronary artery disease for which he underwent a coronary artery bypass. After his surgery, he was evaluated by the electrophysiology service (Dr. Mas) who suggested repeating his Holter monitor to evaluate his PVC burden and determine if he should continue with medical therapy only versus considering a PVC ablation. New Holter monitor revealed his PVC burden has decreased to 4.5%. As such, I discussed the case with Dr. Mas who recommended continuing with medical therapy only. The patient will continue with beta-kelly therapy with metoprolol. Social History Tobacco Use Types Packs/Day Years Used Date Smoking Tobacco: Unknown Sex and Gender Information Value Date Recorded Sex Assigned at Male 04/15/2023 2:35 PM EST Gender Identity Not on file Sexual Orientation Not on file Job Start Date Occupation Industry Not on file Not on file Not on file Last Filed Vital Signs Vital Sign Reading Time Taken Comments Blood Pressure 144/79 04/30/2023 11:44 AM EST Pulse 95 04/30/2023 11:44 AM EST Temperature 36.6 ??C (97.8 ??F) 04/30/2023 11:[address] Respiratory Rate 16 04/30/2023 11:44 AM EST Oxygen Saturation 95% 04/30/2023 11:44 AM EST Inhaled Oxygen Concentration - - Weight 77.6 kg (171 lb) 04/30/2023 11:44 AM EST Height - - Body Mass Index - - Plan of Treatment Health Maintenance Due Date Last Done Comments Hepatitis C Screening 1955 Pneumococcal Vaccine (1 of 2 - PCV) 1962 Depression Screening 1968 Preventative Health Evaluation 1974 DTap / Tdap / Td (1 - Tdap) 1975 Colon Cancer Screening (Colonoscopy) 2001 Shingrix-Zoster Vaccine (1 of 2) 2006 RSV Adult > 60+ Yrs or Pregn ant (1 - Risk 60-74 years 1-dose series) 2016 Fall Risk Assessment 2021 COVID-19 Vaccine (2 - 2023-2 5 season) 2024 07/30/2020 Influenza Vaccine (#1) 2024 Hepatitis B Vaccines Aged Out No long er eligible based on patient's age to complete this topic RSV Ped < 20 months Aged Out No longe r eligible based on patient's age to complete this topic Care Teams Health Assessment And Treatment Teacher Relationship Specialty Start Date End Date Cesario Hernandez MD [address] [place] [address] PCP - General Order Picker 04/15/23
--- OUTSIDE RECORDS SUMMARY | 2024-07-02 11:05 | XMS_ITS | Clinical Summary ---
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 Active ascorbic acid (VITAMIN C) 250 mg tablet Take 1 tablet (250 mg total) by mouth 1 (one) time each day. Active aspirin 81 mg EC tablet Take 1 tablet (81 mg total) by mouth 1 (one) time each day. 2 Active atorvastatin (LIPITOR) 80 mg tablet Take 1 tablet (80 mg total) by mouth 1 (one) time each day. 3 Active fluticasone propionate (FLONASE) 50 mcg/actuation nasal spray Administer 2 sprays into affected nostril(s). Active gabapentin (NEURONTIN) 100 mg capsule Take 2 capsules (200 mg total) by mouth. Active isosorbide mononitrate (IMDUR) 60 mg 24 hr tablet Take 1 tablet (60 mg total) by mouth 1 (one) time each day. Active lisinopriL (PRINIVIL,ZESTRI L) 5 mg tablet Take 1 tablet (5 mg total) by mouth 1 (one) time each day. 3 Active metoprolol succinate (TOPROL-XL) 50 mg 24 hr tablet Take 1.5 tablets (75 mg total) by mouth 1 (one) time each day. 3 Active mirtazapine (REMERON) 7.5 mg tablet Take 1 tablet (7.5 mg total) by mouth. Active omeprazole (PRILOSEC) 20 mg tablet,delayed release (DR/EC) Take 1 tablet (20 mg total) by mouth. 1 Active oxyCODONE (ROXICODONE) 5 mg immediate release tablet Take 1 tablet (5 mg total) by mouth every 6 hours as needed. Max Daily Amount: 20 mg Active terazosin (HYTRIN) 5 mg capsule Take 1 capsule (5 mg total) by mouth. 3 Active Active Problems Problem Noted Date Diagnosed Date Midline sternotomy scar 04/01/2024 RBBB 02/13/2024 Overview (04/01/2024): Last Assessment & Plan: The patient was found to have a right bundle branch block on today's EKG. The right bundle branch block is new when compared to prior EKG from 01/14/2023 (he was found to have an incomplete right bundle branch block at that time). As such, we will order an echocardiogram to evaluate his RV size and function. COPD (chronic obstructive pulmonary disease) Overview (04/01/2024): Last Assessment & Plan: The patient has a history of former smoker. On the patient's chest CT scan done at [facility] in January 2023 he had evidence of centrilobular emphysematous changes. As such, will refer the patient for an evaluation with the pulmonology service given his apparent underlying COPD. HLD (hyperlipidemia) 01/14/2023 Overview (04/01/2024): Last Assessment & Plan: Patient has a history of hyperlipidemia as well as a history of coronary artery disease. His last LDL cholesterol was noted to be 36. He will continue his current regimen with atorvastatin 80 mg orally daily. CAD (coronary artery disease) 05/02/2021 Overview (04/01/2024): Last Assessment & Plan: Patient has a [...] medical therapy with metoprolol, aspirin, and atorvastatin. Cardiomyopathy 12/19/2020 Overview (04/01/2024): Last Assessment & Plan: Patient has a history of ischemic cardiomyopathy. His last echocardiogram in October 2022 showed LVEF to be 55 to 60%. At this point, we will continue current therapies. HTN (hypertension) 12/18/2020 Overview (04/01/2024): Last Assessment & Plan: Patient has a history of hypertension. His blood pressure is noted to be well controlled today. We will continue his current antihypertensive medication regimen with lisinopril and metoprolol. PVC (premature ventricular contraction) 12/19/19 Overview (04/01/2024): Last Assessment & Plan: The patient has [...] will continue with beta-kelly therapy with metoprolol. Encounters Date Type Department Care Team Description 05/06/2024 1:30 PM EST Ancillary Procedure [facility] - [address] [place] [phone] Coronary artery disease involving [place] coronary artery of [place] heart without angina pectoris; Ischemic cardiomyopathy; RBBB 04/30/2024 10:10 AM EST - 04/30/2024 11:59 PM EST Hospital Encounter [facility] Ultrasound [address] [place] [phone] Axillary lymphadenopathy Discharge Disposition: Home or Self Care 04/01/2024 11:45 AM EST - 04/01/2024 11:59 PM EST Hospital Encounter [facility] CT Scan [address] [place] [phone] Tobacco abuse; Personal history of nicotine dependence Discharge Disposition: Home or Self Care 04/01/2024 11:15 AM EST Office Visit Lung Screening Program - [place] [address] [facility] [address] [place] [phone] Denisse Jennings PA Encounter for screening for malignant neoplasm of lung in former smoker who quit in past 15 years with 30 pack year history or greater (Primary Dx) from Last 3 Months Immunizations Name Administration Dates Next Due [employer] SARS-CoV-2 COVID -19, vector-nr, [id number], preservative free 07/30/2020 Surgical History Surgery Date Site/Laterality Comments CHOLECYSTECTOMY PROCEDURE: HISTORICAL CHOLECYSTECTOMY; COMMENT: acute/chronic cholecystitis// removal 2020 Dr. [place], [facility] [place] Medical History Medical History Date Comments Apnea DX:Apnea Asthma DX:Asthma Back pain DX:Back pain COPD (chronic obstructive pu lmonary disease) (CMS/HCC) DX:COPD (chronic obstructive pulmonary disease) (HCC) Depression DX:Depression GERD (gastroesophageal reflux disease) DX:GERD (gastroesophageal reflux disease) IBS (irritable bowel syndrome) D X:IBS (irritable bowel syndrome) Insomnia DX:Insomnia Esophageal reflux DX:Esophageal reflux Family history of melanoma DX:Fa casimiro history of melanoma Hematuria DX:Hematuria Prostatism DX:Prostatism Tobacco use disorder DX:Tobacco use disorder Prediabetes DX:Prediabetes Family History Medical History Relation Name Comments Lung cancer Father Pancreatic cancer Father Liver cancer Mother Relation Name Status Comments Father Mother Social History Tobacco Use Types Packs/Day Years Used Date Smoking Tobacco: Former Cigarettes 1 50 1 971 - 2020 Smokeless Tobacco: Former Alcohol Use Standard Drinks/Week Comments Not Currently 0 (1 standard drink = 0.6 oz pur e alcohol) Sex and Gender Information Value Date Recorded Sex Assigned at Male 06/28/2024 3:23 PM EST Legal Sex Male 6:55 PM EST Gender Identity Male 06/28/2024 3:23 PM EST Sexual Orientation Choose not to disclose 2024 3:23 PM EST Obstetrics History Last Filed Vital Signs Vital Sign Reading Time Taken Comments Blood Pressure 142/78 05/06/2024 2:27 PM EST Pulse 77 02/18/2024 1:04 PM EDT Temperature 36.5 ??C (97.7 ??F) 04/01/2024 11:[address] Respiratory Rate - - Oxygen Saturation - - Inhaled Oxygen Concentration - - Weight 83.5 kg (184 lb) 05/06/2024 2:27 PM EST Height 175.3 cm (5' 9 ) 05/06/2024 2:27 PM EST Body Mass Index 27.17 05/06/2024 2:27 PM EST Plan of Treatment Upcoming Encounters Date Type Department Care Team (Late st Contact Info) Description 07/08/2024 1:15 PM EST [facility] [address] [facility] [address] [place] [phone] Vicenta Salazar MD [address] [facility] [address] [place] [address] 07/21/2024 11:00 AM EST Appointment [facility] CT Scan [address] [place] [phone] 09/09/2024 9:10 AM EDT Office Visit [facility] [address] [place] [phone] Greer Cotton NP [address] [place] [address] Health Maintenance Due Date Last Done Comments DTaP,Tdap,and Td Vaccines (1 - Tdap) 1974 Pneumococcal Vaccine: 50+ Years (2 of 2 - PCV) 02/12/2022 02/12/2021 Abdominal Aortic Aneurysm (AAA) Screen 04/27/2022 Cholesterol Screening (Lipid Panel) 04/27/2022 Colorectal Cancer Screening: Colonoscopy 04/27/2022 Depression Screening 04/27/2022 Falls Risk Assessment 04/27/2022 Hepatitis C Screening 04/27/2022 Medicare Annual Wellness Visit 04/27/2022 Social Influencers of Health Screening 04/27/2022 Hypertension/CHF/CAD Annual BMP Blood Test 2022 COVID-19 Vaccine ( season) 2024 06/09/2023, 01/22/2022, 08/18/2021, Additional history exists Lung Cancer Screening (Low Dose CT) 04/01/2025 04/01/2024 Zoster Vaccines Completed 05/24/2021, 03/16/2021 RSV Immunization Patients 60+ Years Old Completed 06/09/2023 Influenza Vaccine Completed 01/23/2024, , 01/22/2022, Additional history exists HIB Vaccines Aged Out No longer eligi ble based on patient's age to complete this topic HPV Vaccines Aged Out No longer eligi ble based on patient's age to complete this topic Hepatitis A Vaccines Aged Out No long er eligible based on patient's age to complete this topic Hepatitis B Vaccines Aged Out No long er eligible based on patient's age to complete this topic IPV Vaccines Aged Out No longer eligi ble based on patient's age to complete this topic MMR Vaccines Aged Out No longer eligi ble based on patient's age to complete this topic Meningococcal ACWY Vaccine Aged Out N o longer eligible based on patient's age to complete this topic Meningococcal B Vacine Aged Out No lo nger eligible based on patient's age to complete this topic RSV Immunization Patients Under 20 months Aged Out No longer eligible based on patient's age to complete this topic Varicella Vaccines Aged Out No longer eligible based on patient's age to complete this topic Procedures Procedure Name Priority Date/Time Associated Diagnosis Comments TRANSTHORACIC ECHOCARDIOGRAM (TTE) COMPLETE W/ CONTRAST Routine 05/06/2024 2:27 PM EST Coronary artery disease involving [place] coronary artery of [place] heart without angina pectoris Ischemic cardiomyopathy RBBB US BX NDL LYMPH NODE SUPERFICIAL LEFT Routine 04/30/2024 12:05 PM EST Axillary lymphadenopathy TISSUE EXAM Routine 04/30/2024 12:00 PM EST Axillary lymphadenopathy .PATHOLOGIST REVIEW FLOW CYTOMETRY Routine 04/30/2024 12:00 PM EST Axillary lymphadenopathy LEUKEMIA, LYMPHOMA EVALUATION BY FLOW CYTOMETRY Routine 04/30/2024 12:00 PM EST Axillary lymphadenopathy CT LUNG SCREENING Routine 04/01/2024 12: 43 PM EST Tobacco abuse Personal history of nicotine dependence from Last 3 Months Results * (ABNORMAL) TRANSTHORACIC ECHOCARDIOGRAM (TTE) COMPLETE W/ CONTRAST (05/06/2024 2:27 PM EST) Left Atrium Minor [place] 5.9 cm CV PACS Left Atrium Major [place] 6.6 cm CV PACS LA Area Sys (A2C) 25 cm2 CV PACS LA Area Sys (A4C) 26 cm2 CV PACS LA Volume (BP) 91 mL CV PACS RA Area 21.4 cm2 CV PACS RA 2D Volume 63 mL CV PACS AV Mean Gradient 3 mmHg CV PACS Ao VTI 26.6 cm CV PACS AV Peak Marquise 1.3 m/s CV PACS AV Peak Gradient 7 mmHg CV PACS AV Area Continuity Equation 3.1 cm2 CV PACS AV Area Peak Velocity 2.8 cm2 CV PACS Aortic Sinus Valsalva 4.0 cm CV PACS Ascending Aorta 3.9 cm CV PACS IVC Proximal 1.2 cm CV PACS IVSD 1.3(A) 0.6 - 1.0 cm CV PACS LVIDD 4.7 4.2 - 5.8 cm CV PACS LVIDS 3.5 2.5 - 4.0 cm CV PACS LVOT Diameter 2.3 cm CV PACS LVOT Mean Marquise 0.6 m/s CV PACS LVOT Mean Grad 2 mmHg CV PACS LVOT Peak VTI 19.8 cm CV PACS LVOT Peak Marquise 0.9 m/s CV PACS LVOT Peak Gradient 3 mmHg CV PACS LVPWD 1.2(A) 0.6 - 1.0 cm CV PACS MV E' Tissue Velocity Lateral 7 cm/s CV PACS MV E' Tissue Velocity Septal 6 cm/s CV PACS LVOT Area 4.2 cm2 CV PACS LVOT Stroke Volume 82 mL CV PACS MV Deceleration [place] 3.6 m/s2 CV PACS E Wave Deceleration Time 204 119 - 242 ms CV PACS MV PHT 60 ms CV PACS MV Peak A Marquise 0.88 m/s CV PACS MV Peak E Marquise 0.74 m/s CV PACS MV Area PHT 3.7 cm2 CV PACS PV Acceleration Time 90 ms CV PACS RV Diastolic Basal Dimension 4.0 2.5 - 4.1 cm CV PACS RV S' 7 cm/s CV PACS TAPSE 14 mm CV PACS TR Peak Velocity 2.40 m/s CV PACS TR Peak Gradient 23 mmHg CV PACS E/E' Ratio Septal 12 CV PACS E/E' Ratio Averaged 11 CV PACS LVOT Stroke Index 41 mL/m2 CV PACS Relative Wall Thickness ratio 0.51 CV PACS LVOT:AV VTI Index 0.74 CV PACS FS 26 % CV PACS LV Mass 2D 225 g CV PACS Ascending Aorta Index 1.96 cm/m2 CV PACS LVOT flow 249 mL/s CV PACS RA 2D Volume Index 32 mL/m2 CV PACS TJ Index (VTI) 1.55 cm2/m2 CV PACS TJ Index (Pk Marquise) 1.41 cm2/m2 CV PACS LVIDD Index 2.36 cm/m2 CV PACS LVIDS Index 1.76 cm/m2 CV PACS AV Velocity Ratio 0.69 CV PACS E/A Ratio 0.8 CV PACS E/E' Ratio Lateral 11 CV PACS LA Volume Index (BP) 46 mL/m2 CV PACS LV Mass Index 2D 113 g/m2 CV PACS BSA 2.02 m2 CV PACS Right Ventricular Peak Systolic Pressure 26 mmHg CV PACS Est. RA Pressure 3 mmHg CV PACS Anatomical Region Laterality Modality Ultrasound Narrative 06/09/2024 9:15 PM EST ?Left ventricle cavity size is normal. Left ventricular systolic function is in the normal range with an ejection fraction of 55-60%. ?Left ventricle mild concentric hypertrophy. ?Left??Ventricle: There is abnormal septal motion consistent with post-operative status. Small left ventricular apical aneurysm noted; otherwise, normal LV regional wall motion. ?Right ventricle cavity is normal. Right ventricular systolic function is mildly reduced. ?Mitral??Valve: There is mild regurgitation. ?Aorta: Normal aortic root diameter. Ascending aorta is mildly dilated at 3.9 cm. Left Ventricle Left ventricle cavity size is normal. There is mild concentric hypertrophy. Systolic function is normal with an ejection fraction of 55-60%. Small left ventricular apical aneurysm noted; otherwise, normal LV regional wall motion. Unable to assess diastolic function. There is abnormal septal motion consistent with post-operative status. Right Ventricle Right ventricle cavity appears normal. Systolic function is reduced. Left Atrium Left atrium cavity is moderately dilated. Right Atrium Right atrium cavity is normal. IVC/SVC RA pressures is estimated to be 3 mmHg (IVC diameter <21 mm and decreases >50% during inspiration). Mitral Valve The leaflets are mildly thickened. There is mild annular calcification. There is mild regurgitation. There is no evidence of mitral valve stenosis. Tricuspid Valve Tricuspid valve structure is normal. There is trace regurgitation. The right ventricular systolic pressure is normal. Aortic Valve The aortic valve is trileaflet. There is trace regurgitation. There is no evidence of aortic valve stenosis. Pulmonic Valve Pulmonic valve structure is normal. No significant pulmonic valve regurgitation. There is no evidence of pulmonic valve stenosis. Ascending Aorta Normal aortic root diameter. Ascending aorta is mildly dilated at 3.9 cm. Transverse aorta not well visualized. Pericardium Fat pad present. There is no pericardial effusion. Study Details Overall the study quality was adequate. Definity contrast was given to enhance imaging. us Alexy Robledo MD CV ECHO PROCEDURES Fin al Result * US Bx Ndl Lymph Node Superficial Left (04/30/2024 12:05 PM EST) Anatomical Region Laterality Modality Body Left Ultrasound 04/30/2024 5:14 PM EST Impressions 04/30/2024 5:16 PM EST Ultrasound-guided core biopsy of left axillary lymphadenopathy. -------- FINAL REPORT -------- Dictated By: Bernardo Vicente Dictated Date: 04/30/2024 17:14 ET Assigned Physician: Bernardo Vicente Reviewed and Electronically Signed By: Bernardo Vicente Signed Date: 04/30/2024 17:16 ET Workstation ID: [id number] Transcribed By: Self Edit Transcribed Date: 04/30/2024 17:14 ET Narrative 04/30/2024 5:16 PM EST INDICATION: Axillary lymphadenopathy PROCEDURE: Ultrasound-guided biopsy of left axillary node prior relevant studies: CT scan of the chest from April 01, 2024 MEDICATIONS: Local anesthesia: 1% buffered lidocaine administered subcutaneously and up to the biopsy target site. Sedation: none TECHNIQUE/FINDINGS: Prior imaging reviewed and procedure discussed with the patient. Written informed consent obtained. Multiple images obtained of the biopsy target site. Appropriate region of the skin was localized, draped and then prepped sterilely. Under real-time ultrasound guidance multiple core biopsies obtained with 18- gauge needle. Samples placed in formalin as well as for flow cytometry. Bandage applied over the needle entry site. Specimens: Core biopsy samples placed into formalin and RPMI. Procedure Note Bernardo Vicente MD - 04/30/2024 INDICATION: Axillary lymphadenopathy PROCEDURE: Ultrasound-guided biopsy of left axillary node prior relevant studies: CT scan of the chest from April 01, 2024 MEDICATIONS: Local anesthesia: 1% buffered lidocaine administered subcutaneously and upto the biopsy target site. Sedation: none TECHNIQUE/FINDINGS: Prior imaging reviewed and procedure discussed withthe patient. Written informed consent obtained. Multiple images obtainedof the biopsy target site. Appropriate region of the skin was localized,draped and then prepped sterilely. Under real-time ultrasound guidance multiple core biopsies obtained [id number] needle. Samples placed in formalin as well as for flow cytometry.Bandage applied over the needle entry site. Specimens: Core biopsy samples placed into formalin and RPMI. IMPRESSION: Ultrasound-guided core biopsy of left axillary lymphadenopathy. -------- FINAL REPORT -------- Dictated By: Bernardo Vicente Dictated Date: 04/30/2024 17:14 ET Assigned Physician: Bernardo Vicente Reviewed and Electronically Signed By: Bernardo Vicente Signed Date: 04/30/2024 17:16 ET Workstation ID: [id number] Transcribed By: Self Edit Transcribed Date: 04/30/2024 17:14 ET Denisse EMMANUEL [facility] US PROCEDURES Final Resul t * .PATHOLOGIST REVIEW FLOW CYTOMETRY (04/30/2024 12:00 PM EST) Pathologist Interpretation Flow Cytometry Lymph Node, Left Axilla, Flow cytometry Diagnosis: No monotypic B cell population identified. The majority of the lymphocytes are CD3-positive T cells including CD4-positive and CD8-positive subsets without diagnostic phenotypic aberrancy. No discrete population of [id number] blasts is identified. Comments: B-cells are polyclonal and T-cells have no loss of T-cell antigens. There is no flow immunophenotypic evidence of a B- or T-cell lymphoproliferative disorder. Hodgkin lymphoma, some large cell lymphomas, and non-hematopoietic tumors cannot be excluded by flow cytometry. Correlation with morphology, clinical history, and other diagnostic information is recommended. Flow Differential (%) and Population Analysis: Lymphocytes: 95.3% T-cells (83% of lymphoid cells) show a CD4:CD8 ratio of 5.0 without overt phenotypic abnormality. NK-cells (1% of lymphoid cells) are unremarkable. Mature B-cells (16% of lymphoid cells) are polyclonal (kappa:lambda ratio of 1.5). Monocytes: 0.8% Monocytes co-express CD14 and CD64 without phenotypic abnormalities. Granulocytes: 3.2% Granulocytes are phenotypically mature and without aberrant antigen expression. CD45 Dim: 0.5% CD34+ cells are not detected. CD45 Ne.0% Non-hematopoietic cells, erythroids and cell debris. Plasma Cells: 0.1% CD34+: 0.1% Specimen Viability: 97 % Cell Yield: 0.88 Million Markers Performed: CD2, CD3, CD4, CD5, CD7, CD8, CD10, CD11c, CD13, CD14, CD16, CD19, CD20, CD23, CD33, CD34, CD38, CD45, CD56, CD64, CD117, HLA-DR, [place], Lambda (24 Markers) 4 11:05 AM EST [facility] Lymph Node Structure of left axillary region / Unknown 04/30/2024 12:00 PM EST 05/03/2024 11:03 AM EST Narrative [facility] [place] - 05/03/2024 11:05 AM EST The Accessioning Component and Technical Component Processing of this test was completed at [facility] , [address] [place] / [address] / [phone] / CLIA # [id number] / [employer] Representative(s): Christina Farley MD. The Technical Component Analysis of this test was completed at [facility] [place], [address] [place] [id number] / [phone] / CLIA # [id number] / [employer] Representative(s): Andreas Seaman M.D. The Professional Component of this test was completed by Dr. Vi Rodriguez at [facility], [facility] Department of Pathology, [place] [address] / / . This test was developed and its performance characteristics determined by the performing laboratory. It has not been cleared or approved by the U.S. Food and Drug Administration. The FDA has determined that such clearance or approval is not necessary. This test is used for clinical purposes. It should not be regarded as investigational or for research. This laboratory is certified under the Clinical Laboratory Improvement Amendments of 1988 (CLIA) as qualified to perform high complexity clinical testing. Denisse EMMANUEL LAB BLOOD ORDERABLES Final Re sult [facility] [address] [place] [address], * Leukemia, lymphoma evaluation by flow cytometry (04/30/2024 12:00 PM EST) Scan Result See Scanned Result 05/03/2024 11:05 AM EST EXTERNAL LAB (NON-INTERFAC ED) Lymph Node Structure of left axillary region / Unknown 04/30/2024 12:00 PM EST 04/30/2024 2:51 PM EST Narrative EXTERNAL LAB (NON-INTERFACED) - 05/03/2024 11:05 AM EST Denisse Jennings [facility]LECULAR DIAGNOSTICS ORD ERABLES Final Result EXTERNAL LAB (NON-INTERFACED) * Tissue exam (04/30/2024 12:00 PM EST) Final Diagnosis Lymph node, left axilla, core biopsy: Lymph node with scattered reactive-appearing lymphoid follicles. No monotypic B cell population and no aberrant T cell population detected by flow cytometric evaluation. No carcinoma identified. Note: Although the morphologic and immunophenotypic findings in this core biopsy specimen support interpretation as a reactive process, clinical correlation and follow-up is recommended. If the patient's lymphadenopathy fails to resolve in a clinically appropriate fashion and/or if clinical concern for malignancy at this site remains, additional sampling would warrant consideration. Flow cytometry: No monotypic B cell population identified. The majority of the lymphocytes are CD3-positive T cells including CD4-positive and CD8-positive subsets without diagnostic phenotypic aberrancy. No discrete population of [id number] blasts is identified. Comments: B-cells are polyclonal and T-cells have no loss of T-cell antigens. There is no flow immunophenotypic evidence of a B- or T-cell lymphoproliferative disorder. Hodgkin lymphoma, some large cell lymphomas, and non-hematopoietic tumors cannot be excluded by flow cytometry. Correlation with morphology, clinical history, and other diagnostic information is recommended. (See separate report, [facility]-[id number], for additional details.) 11:57 AM EST [facility] Gross Description A. Axilla, Left, lymph node core biopsy: Labeled left axilla . Received in formalin are three cylindrical soft tissue cores, ranging from 0.1 x 0.1 cm to 0.8 x 0.1 cm, which are wrapped in paper and submitted in toto in two cassettes, one piece and two pieces, respectively, x 2 with 15 unstained slides between levels, cut at 3 ??m. Tissue is also received in RPMI and submitted to [facility] in [facility] for flow cytometry. CINDY 11:57 AM EST [facility] Disclaimer Unless otherwise specified, all tissue is 10% NB formalin fixed and paraffin embedded. 11:57 AM EST [facility] Lymph Node Structure of left axillary region / Unknown 04/30/2024 12:00 PM EST 04/30/2024 12:19 PM EST us Denisse EMMANUEL LAB PATHOLOGY ORDERABLES Carlita vega Result [facility]) [facility] [address] [place] [address], * CT Lung Screening (04/01/2024 12:43 PM EST) Anatomical Region Laterality Modality Chest Computed Tomogra phy 04/02/2024 9:01 AM EST Impressions 04/02/2024 10:00 AM EST No suspicious pulmonary nodules. Mediastinal and bilateral axillary lymphadenopathy may be reactive or related to an underlying lymphoproliferative disorder such as lymphoma. ??Correlate with any prior outside imaging to ensure stability over time. Chronic sternotomy wound dehiscence with large chest wall fluid collection which may represent a hematoma/seroma; however, sterility indeterminate. Lung RADS 1S-negative. ??Recommend continued lung screening with low-dose chest CT in 12 months. -------- FINAL REPORT -------- Dictated By: CIERA GARCIA Dictated Date: 04/02/2024 09:01 ET Assigned Physician: CIERA GARCIA Reviewed and Electronically Signed By: CIERA GARCIA Signed Date: 04/02/2024 10:00 ET Workstation ID: [id number] Transcribed By: Self Edit Transcribed Date: 04/02/2024 09:26 ET Narrative 04/02/2024 10:00 AM EST PROCEDURE: Chest CT INDICATION: Lung cancer screening, greater than 20 pack year smoking history, former smoker TECHNIQUE: Chest CT without contrast. Multi planar reformats were created and interpreted. The examination was performed utilizing dose reduction techniques. ??Total DLP COMPARISON: ??No priors available. FINDINGS: LUNGS/PLEURA: Central airways are patent. ??Severe emphysema. ??Scattered punctate calcified granulomas throughout lungs. ??No suspicious pulmonary nodules. ??Chronic bronchitis. ??No pleural effusion or pneumothorax. MEDIASTINUM: Thyroid gland is within normal limits. ??Multiple enlarged mediastinal lymph nodes. ??For example right paratracheal node measures 13 mm short axis. ??AP window node measures 14 mm short axis. ??Small hiatal hernia. ??Cardiac chambers are normal in size. ??No pericardial effusion. ??Prior coronary artery bypass graft with advanced coronary artery calcifications. CHEST WALL: Prominent bilateral axillary lymph nodes measuring up to 14 mm on the left 13 mm on the right. ??Chronic appearing sternotomy dehiscence with fluid collection in the ventral chest wall at the sternal dehiscence measuring 7 x 5 cm. UPPER ABDOMEN:The visualized portions of the upper abdomen are unremarkable. BONES: Cervical fusion hardware. ??Chronic sternotomy dehiscence. ??Degenerative changes seen throughout the spine. us Victor M John MD IMG CT PROCEDURES Final Result from Last 3 Months Insurance MEDICARE [facility] Care Teams Steam Bone Press Tender Relationship Specialty Start Date End Date Cesario Hernandez MD [address] [place], [place] PCP - General Internal Medicine 12/15/20
== END 2024-07-02 10:37 | disposition home or self-care (01) ==
PROVIDERS: PCP Internal Medicine; Visit Provider Nurse Practitioner Family
DX: R07.89 Other chest pain (principal); G89.29 Other chronic pain; M25.511 Pain in right shoulder; M25.512 Pain in left shoulder; Z98.890 Other specified postprocedural states; Z79.891 Long term (current) use of opiate analgesic
CPT/HCPCS: 99214; G2211

== ENCOUNTER → 2024-07-02 10:14 | Outpatient (BNVA) | payer MEDICARE, SELFPAY | PROVIDERS: PCP Internal Medicine; Visit Provider Nurse Practitioner Family | DX: R07.89 Other chest pain (principal); G89.29 Other chronic pain; M25.511 Pain in right shoulder; M25.512 Pain in left shoulder; Z51.81 Encounter for therapeutic drug level monitoring; Z79.891 Long term (current) use of opiate analgesic; Z98.890 Other specified postprocedural states | CPT/HCPCS: 99212 ==

== ENCOUNTER → 2024-08-06 10:13 | Outpatient (BNVA) | payer MEDICARE, SELFPAY | PROVIDERS: PCP Internal Medicine; Visit Provider Nurse Practitioner Family ==

== ENCOUNTER 2024-09-03 10:16 | Outpatient (AMB) | payer MEDICARE, SELFPAY ==
[2024-09-03 10:29] VITALS: BP 136/93; PULSE 94; O2SAT 100; BMI 27.5
--- NOTE | 2024-09-03 10:29 | MHC.OFFVIS ---
Vital Signs 09/03/24 10:29 Height 5 ft 9 in Weight 186 lb BMI 27.5 BP 136/93 H Blood Pressure Location Lt brachial Position Sitting Pulse 94 Pulse Source Pulse Oximeter Pulse Oximetry (%) 100 Oxygen Delivery Method Room Air Intake Visit Reasons: Pill count Engraving Operator Required: No Allergies clindamycin Allergy (Unknown, Verified 09/03/24 10:29) Unknown Medication List - Last Reconciled 09/03/24 by Juanita Almaguer, DOCUMENTATION SPECIALIST ascorbic acid (vitamin C) mg PO aspirin 81 mg PO DAILY atorvastatin 80 mg PO DAILY capsaicin 0.1% (Arthritis Pain Relief (capsaicin)) 1 appl topical TID diclofenac sodium 1% (Arthritis Pain (diclofenac)) 4 grams topical QID fluticasone propionate 50 mcg/actuation 2 sprays intranasal DAILY gabapentin 300 mg PO TID 30 days ipratropium-albuterol 20-100 mcg/actuation (Combivent Respimat) 1 puff inhalation Q6H lisinopril 5 mg PO DAILY metoprolol tartrate 75 mg PO DAILY mirtazapine 7.5 mg PO BEDTIME naloxone 4 mg/actuation (Narcan) 4 mg intranasal Q2M PRN omeprazole 20 mg PO DAILY oxycodone-acetaminophen 5-325 mg 1 tab PO BID PRN 30 days terazosin 5 mg PO BID HPI Comments Details: Patient presents today for a pill count. Patient is supposed to have #44 pills, in his possession has #47 pills. This demonstrates a responsible attitude in regards to the medication regimen. Patient reports reasonable analgesia on his current regimen of oxycodone-acetaminophen 5-325 mg 1 tab BID prn with no noted side effects. However, he reports coughing fit last week that exacerbated his sternal pain. He has follow up for this with Cardiology provider next week. Denies any chest pain or tightness or shortness of breaths but notes anterior rib pain. Denies any constipation, nausea, sedation, dizziness, or urinary retention. Pain is rated at 6/10. He also takes gabapentin with good tolerance and no side effects. Denies any recent cough, cold, infection, fever, or any other significant changes in her medical history, medications or recent hospitalizations. PRIOR Dr. Liang: 68-year-old male who presents today to the office for a UDS review and opioid contract. He tried to lay down on his chest but lasted only two seconds with support, so he is unable to proceed with the pain pump or SCS device trial. He is currently taking gabapentin 300 mg once daily. He wants to increase his dose of gabapentin 300 mg to T.I.D. He denies any history of kidney disease. He occasionally takes Tylenol as needed for headaches. He has regular bowel movements. PRIOR: 68-year-old male who presents today to the office for a post-sternotomy pain. He has a history of CABGx5, mechanical fall from ladder, and subsequent osteomyelitis of the sternum, which resulted in blunt chest trauma (02/10/23), complicated by open wound sternum and mediastinum 30 cm x 8 cm with exposed heart, s/p reconstruction of the of the anterior chest wall with bilateral pectoralis major myocutaneous flap, and an open biopsy of the sternum bone and treatment of sternum osteomyelitis. He underwent 12 surgeries, wound vac therapy, and a flap procedure and was hospitalized at [facility] [place] for one month during this time. In July 2023, he underwent C6-C7 ACDF for disc herniation by Dr. Suero, [facility] [place]. He also had L5-S1 lumbar fusion with 2 screws and a raul in 2018. His chest wall pain has been chronic and unbearable since 01/2023. He is unable to sleep at night due to pain. Since reconstructive chest surgery, he has difficulty lifting his arms above heart level, which causes increased pain in his shoulders. He is unable to lay down flat on the surface. He wakes up at night with severe pain in his arm. He has been taking Tylenol, gabapentin, and mirtazapine with mild relief. He has not tried spinal cord stimulator devices in the past. [facility] Medical History Chest pain Blunt chest trauma Hyperlipidemia COPD (chronic obstructive pulmonary disease) IBS (irritable bowel syndrome) Insomnia Tobacco abuse disorder Hypertension Hematuria History of esophageal reflux Depression Back pain Apnea ASHD (arteriosclerotic heart disease) Asthma Surgical History History of thoracic surgery (~01/2023) Hx of cholecystectomy (~2020) S/P CABG x 5 (~12/2022) Social History (Reviewed 07/02/24 @ 10:32 by BERNADETTE Baxter Alcohol intake: current Alcohol intake frequency: holidays/special occasions only Patient Tobacco Use Status: Current someday Tobacco user Tobacco use type: Cigarette Review of Systems Const All systems reviewed & are unremarkable except as noted in HPI and below Physical Exam Vital Signs: Last Vital Signs Pulse 94 09/03/24 10:29 BP 136/93 H 09/03/24 10:29 Pulse Ox 100 09/03/24 10:29 Oxygen Delivery Method Room Air 09/03/24 10:29 BMI result Body Mass Index 27.5 General: Appears afebrile. Alert and oriented. Mood and affect appropriate. Follows and participates in conversation appropriately. Respiratory effort is unlabored. Able to transition from sit to stand unassisted. Ambulates with bilaterally normal heel strike and toe off. Resp Effort & Inspection: normal respiratory effort, able to speak in complete sentences, no cough, no respiratory distress and no stridor Extrem General: Yes capillary refill normal, Yes no clubbing, cyanosis or edema and Yes no calf tenderness Psych Appearance: grossly normal Mental Status: mental status grossly normal Speech and movement: Normal speech and movement present and Clear speech present Affect: normal affect Attitude: cooperative Thought process: Normal thought process present Thought content: Normal thought content present, suicidality (none), no hallucinations and No Depressive thoughts present Insight: Good insight present (Psych) Judgement: Good judgement present (Psych) Results Reviewed Results Reviewed: No imaging is available for review. Assessment & Plan Assessment & Plan (1) Chronic chest wall pain: Code(s): R07.89 - Other chest pain; G89.29 - Other chronic pain Category: Medical (2) Bilateral shoulder pain: Code(s): M25.511 - Pain in right shoulder; M25.512 - Pain in left shoulder Category: Medical (3) History of thoracic surgery: Onset Date: ~01/2023 Comment: [facility] [place] 02/10/23: open wound sternum and mediastinum 30 cm x 8 cm, with exposed heart, s/p reconstruction anterior chest wall with bilateral pectoralis major myocutaneous flap and open biopsy of sternum bone and treatment of osteomyelitis of sternum Code(s): Z98.890 - Other specified postprocedural states Category: Surgical (4) Opioid contract exists: Code(s): Z79.891 - rodent exterminator (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 There is no evidence of misuse, abuse or diversion at this time. [employer] reviewed. Refill for Percocet 5 mg-325 mg BID prn is sent with advanced date of 09/24/24. Patient has Narcan at home. Continue gabapentin as needed. All questions were answered and the patient is in agreement with the plan. Follow up in 4-5 weeks for pill count and sooner as needed. Medications: Refilled oxycodone-acetaminophen 5-325 mg Partial Fill upon patient request. 1 tab PO BID 30 days PRN 60 tabs 0RF pain G89.29 - Other chronic pain, M25.511 - Pain in right shoulder, M25.512 - Pain in left shoulder, R07.89 - Other chest pain, Z98.890 - Other specified postprocedural states Coding Level of Care Code Est Pt Level 4 (12661) Complex EM visit Add On G2211 Diagnoses Chronic chest wall pain R07.89; G89.29 Bilateral shoulder pain M25.511; M25.512 History of thoracic surgery Z98.890 Opioid contract exists Z79.891
--- OUTSIDE RECORDS SUMMARY | 2024-09-03 11:07 | XMS_ITS | Clinical Summary ---
Author Organization [facility] Address [address] [place] [id number] Care Team Providers Care Child Adolescent Psychiatrist Name Role Phone Cesario Hernandez MD Primary Care Provider [phone] Allergies Active Allergy Reactions Criticality Noted Date [...] today by the cardiac surgery office at [facility]. He will be evaluated by Dr. [...] The patient had a CABG x5 at [facility] on 01/08/[address] Pantoja. On today's visit, the patient brought a report of a chest x-ray that was done at [facility] on 04/19/2022. The chest x-ray was [...] had a chest CT scan done at [facility] on 04/22/2022 and this study also [...] that he would be contacted by the [facility] cardiac surgery office to arrange an [...] age to complete this topic Care Teams Child Adolescent Psychiatrist Relationship Specialty Start Date End Date Cesario Hernandez MD [address] [place] [address] PCP - General Client Development Director 04/15/23
--- OUTSIDE RECORDS SUMMARY | 2024-09-03 11:07 | XMS_ITS | Clinical Summary ---
Author Organization [facility] Address [address] [place] [address] Phone Care Team Providers Care Optimization Analyst Name Role Phone Cesario Hernandez MD Primary Care Provider [phone] Allergies Active Allergy Reactions Criticality Noted Date [...] mouth 1 (one) time each day. Active metoprolol succinate (TOPROL-XL) 50 mg 24 [...] by mouth every 6 hours as needed. Active terazosin (HYTRIN) 5 mg capsule Take 1 capsule (5 mg total) by mouth. 3 Active Combivent Respimat 20-100 mcg/actuation inhaler Inhale 1 puff by mouth 4 (four) times a day. Active lisinopriL (PRINIVIL,ZESTRI L) 5 mg tablet TAKE 1 TABLET BY MOUTH EVERY DAY 90 tablet 2 5 Active Active Problems Problem Noted Date Diagnosed [...] RV size and function. COPD (chronic obstructive pu lmonary disease) (CMS/HCC V24, CMS/HCC V28) 03/05/2023 Overview (04/01/2024): Last Assessment & Plan: The patient has a history of former smoker. On the patient's chest CT scan done at [facility] in January 2023 he had evidence of [...] therapy with metoprolol, aspirin, and atorvastatin. Cardiomyopathy (CMS/HCC V24, CMS/HCC V28) 2020 Overview (04/01/2024): Last Assessment & Plan: Patient [...] Encounters Date Type Department Care Team Description 07/21/2024 10:35 AM EST - 07/21/2024 11:59 PM EST Hospital Encounter [facility] CT Scan [address] [place] [address] Calcified granuloma of lung Discharge Disposition: Home or Self Care 07/08/2024 1:15 PM EST Office Visit Pulmonolgy - [facility] [address] [facility] [address] [place] [address] Vicenta Salazar MD Pulmonary emphysema, unspecified emphysema type ([facility] V24, [facility] V28) (Primary Dx); Abnormal chest CT; Ex-smoker from Last 3 Months Immunizations Name Administration Dates Next Due Babyage/Nifty After Fifty SARS-CoV-2 COVID -19, vector-nr, rS-Ad26, preservative free 07/30/2020 Surgical History Surgery Date Site/Laterality Comments CHOLECYSTECTOMY PROCEDURE: HISTORICAL CHOLECYSTECTOMY; COMMENT: acute/chronic cholecystitis// removal 2020 Dr. Peterson, [facility] [place] Medical History Medical History Date Comments Apnea DX:Apnea Asthma DX:Asthma Back pain DX:Back pain COPD (chronic obstructive pu lmonary disease) ([facility] V24, [facility] V28) DX:COPD (chronic o bstructive pulmonary disease) ([facility]) Depression DX:Depression GERD (gastroesophageal reflux disease) DX:GERD [...] Cigarettes 1 50 1 971 - 2020 Passive Smoke Exposure: Past Smokeless Tobacco: Former Alcohol Use Standard Drinks/Week [...] Sign Reading Time Taken Comments Blood Pressure 179/89 07/08/2024 1:14 PM EST Pulse 69 07/08/2024 1:14 PM EST Temperature 35.8 ??C (96.5 ??F) 07/08/2024 1:14 PM ES T Respiratory Rate 19 07/08/2024 1:14 PM EST Oxygen Saturation 95% 07/08/2024 1:14 PM EST Inhaled Oxygen Concentration - - Weight 86.2 kg (190 lb) 07/08/2024 1:14 PM EST Height 175.3 cm (5' 9 ) 07/08/2024 1:14 PM EST Body Mass Index 28.06 07/08/2024 1:14 PM EST Plan of Treatment Upcoming Encounters Date Type Department Care Team (Late st Contact Info) Description 09/09/2024 9:10 AM EDT Office Visit [facility] [address] [place] [address] Greer Cotton NP [address] [place] [address] [address] [place] [address] 01/10/2025 11:30 AM EDT Office Visit Pulmonolgy - [facility] [address] [facility] [address] [place] [id number] Vicenta Salazar MD [address] [facility] [address] [place] [address] Health Maintenance Due Date Last Done Comments [...] Zoster Vaccines Completed 05/24/2021, 03/16/2021 RSV Immunization Adult Patients Completed 06/09/2023 Influenza Vaccine Completed 01/23/2024, , [...] age to complete this topic Meningococcal B Vaccine Aged Out No l onger eligible based on patient's age to complete this topic RSV Immunization Patients Under 20 months Aged Out No longer eligible based on patient's age to complete this topic Varicella Vaccines Aged Out No longer eligible based on patient's age to complete this topic Procedures Procedure Name Priority Date/Time Associated Diagnosis Comments CT CHEST WO CONTRAST Routine 07/21/2024 10:50 AM EST Calcified granuloma of lung CT LUNG SCREENING Routine 04/01/2024 12: 43 PM EST Tobacco abuse Personal history of nicotine dependence from Last 3 Months or Most Recently Relevant to Health Maintenance Results * CT Chest wo Contrast (07/21/2024 10:50 AM EST) Anatomical Region Laterality Modality Body Computed Tomogra phy 07/23/2024 8:43 AM EST Impressions 07/23/2024 9:02 AM EST No suspicious mass or pulmonary nodules. Severe emphysema. Stable or mildly improved axillary lymph nodes. Fluid collection overlying sternectomy. ?? -------- FINAL REPORT -------- Dictated By: Alex Chung Dictated Date: 07/23/2024 08:43 ET Assigned Physician: Alex Chung Reviewed and Electronically Signed By: Alex Chung Signed Date: 07/23/2024 09:02 ET Workstation ID: [id number] Transcribed By: Self Edit Transcribed Date: 07/23/2024 08:43 ET Narrative 07/23/2024 9:02 AM EST EXAMINATION: CT CHEST WITHOUT CONTRAST CLINICAL INFORMATION: Emphysema. ??Axillary adenopathy. Calcified granulomata. Previous axillary lymph node biopsy. COMPARISON: Portions of previous CT 04/01/2024. ?? TECHNIQUE: Multidetector CT. Examination of the chest. Examination of the chest without IV contrast. Reformatting in the coronal and sagittal planes. DLP: 479 mGy-cm Dose optimization was performed including the use of low-dose iterative reconstruction technique with automatic exposure control based on patient size. Type of contrast: None Volume of IV contrast: None Volume of contrast discarded: 0 mL FINDINGS: Digital computer security manager demonstrates sternal wire fragment. Large lung volumes. Lower cervical instrumentation. LUNG: There is narrowing of the transverse diameter of the trachea. This can be seen with COPD. There are no suspicious masses or nodules. There is severe centrilobular emphysema. There are some scattered reticular opacities. There is no honeycomb formation. There is no evidence of acute pneumonia. ?? MEDIASTINUM: ??There are nonspecific prominent mediastinal lymph nodes similar to previous. No large hilar mass. No suspicious abnormality esophagus. CARDIAC: Previous coronary artery bypass grafting. No significant pericardial fluid. ?? CORONARY CALCIFICATION: ??Previous CABG. VASCULAR: There is no thoracic aortic aneurysm. The main pulmonary artery is normal caliber ?? PLEURA: There is no pleural fluid or pneumothorax ?? AXILLA/CHEST WALL: There are multiple axillary lymph nodes demonstrated. These maintain a reniform shape. Most of these demonstrate a fatty hilum. There may have been slight interval improvement. No new axillary mass. Previous sternectomy. There is a fluid collection at the sternectomy extending into the anterior chest wall. Appears similar to previous. ?? VISUALIZED UPPER ABDOMEN: ??The liver and spleen are not completely included but there is no convincing enlargement. No measurably enlarged upper abdominal lymph nodes. There are stable small nodules at the upper abdomen and left upper quadrant which could represent splenules. MUSCULOSKELETAL: No suspicious focal bony lesion. ??The margins of the sternectomy are sharply defined. There is no specific radiographic evidence of osteomyelitis. The presence or absence of infection within the fluid collection in the chest wall overlying the sternectomy cannot be determined. The stability is reassuring. Lower cervical instrumentation. Procedure Note Alex Chung MD - 07/23/2024 EXAMINATION: CT CHEST WITHOUT CONTRAST CLINICAL INFORMATION: Emphysema. Axillary adenopathy. Calcified granulomata. Previous axillarylymph node biopsy. COMPARISON: Portions of previous CT 04/01/2024. TECHNIQUE: Multidetector CT. Examination of the chest. Examination of the chest without IV contrast. Reformatting in the coronal and sagittal planes. DLP: 479 mGy-cm Dose optimization was performed including the use of low-dose iterativereconstruction technique with automatic exposure control based on patientsize. Type of contrast: None Volume of IV contrast: None Volume of contrast discarded: 0 mL FINDINGS: Digital computer security manager demonstrates sternal wire fragment. Large lungvolumes. Lower cervical instrumentation. LUNG: There is narrowing of the transverse diameter of the trachea. Thiscan be seen with COPD. There are no suspicious masses or nodules. There is severe centrilobular emphysema. There are some scatteredreticular opacities. There is no honeycomb formation. There is no evidenceof acute pneumonia. MEDIASTINUM: There are nonspecific prominent mediastinal lymph nodessimilar to previous. No large hilar mass. No suspicious abnormality esophagus. CARDIAC: Previous coronary artery bypass grafting. No significantpericardial fluid. CORONARY CALCIFICATION: Previous CABG. VASCULAR: There is no thoracic aortic aneurysm. The main pulmonary arteryis normal caliber PLEURA: There is no pleural fluid or pneumothorax AXILLA/CHEST WALL: There are multiple axillary lymph nodes demonstrated.These maintain a reniform shape. Most of these demonstrate a fatty hilum.There may have been slight interval improvement. No new axillary mass. Previous sternectomy. There is a fluid collection at the sternectomyextending into the anterior chest wall. Appears similar to previous. VISUALIZED UPPER ABDOMEN: The liver and spleen are not completelyincluded but there is no convincing enlargement. No measurably enlargedupper abdominal lymph nodes. There are stable small nodules at the upperabdomen and left upper quadrant which could represent splenules. MUSCULOSKELETAL: No suspicious focal bony lesion. The margins of thesternectomy are sharply defined. There is no specific radiographicevidence of osteomyelitis. The presence or absence of infection within thefluid collection in the chest wall overlying the sternectomy cannot bedetermined. The stability is reassuring. Lower cervical instrumentation. IMPRESSION: No suspicious mass or pulmonary nodules. Severe emphysema. Stable or mildly improved axillary lymph nodes. Fluid collection overlying sternectomy. -------- FINAL REPORT -------- Dictated By: Alex Chung Dictated Date: 07/23/2024 08:43 ET Assigned Physician: Alex Chung Reviewed and Electronically Signed By: Alex Chung Signed Date: 07/23/2024 09:02 ET Workstation ID: [id number] Transcribed By: Self Edit Transcribed Date: 07/23/2024 08:43 ET Cesario Hernandez MD IM CT PROCEDURES Final R esult * CT Lung Screening (04/01/2024 12:43 PM [...] Signed Date: 04/02/2024 10:00 ET Workstation ID: [id number] Transcribed By: Self Edit Transcribed Date: 04/02/2024 [...] dehiscence. ??Degenerative changes seen throughout the spine. Victor M John MD [facility] CT PROCEDURES Final Result from Last 3 Months or Most Recently Relevant to Health Maintenance Insurance MEDICARE [employer] Care Teams Optimization Analyst Relationship Specialty Start Date End Date Cesario Hernandez MD [address] PCP - General Internal Medicine 12/15/20
== END 2024-09-03 10:38 | disposition home or self-care (01) ==
LOC: HO.PMC 10:17
PROVIDERS: PCP Internal Medicine; Visit Provider Nurse Practitioner Family
DX: R07.89 Other chest pain (principal); G89.29 Other chronic pain; M25.511 Pain in right shoulder; M25.512 Pain in left shoulder; Z98.890 Other specified postprocedural states; Z79.891 Long term (current) use of opiate analgesic
CPT/HCPCS: 99214; G2211

== ENCOUNTER → 2024-09-03 10:16 | Outpatient (BNVA) | payer MEDICARE, SELFPAY | PROVIDERS: PCP Internal Medicine; Visit Provider Nurse Practitioner Family | DX: R07.89 Other chest pain (principal); G89.29 Other chronic pain; M25.511 Pain in right shoulder; M25.512 Pain in left shoulder; Z51.81 Encounter for therapeutic drug level monitoring; Z79.01 Long term (current) use of anticoagulants; Z79.891 Long term (current) use of opiate analgesic; Z98.890 Other specified postprocedural states | CPT/HCPCS: 99212 ==

== ENCOUNTER 2024-10-01 10:16 | Outpatient (AMB) | payer MEDICARE, SELFPAY ==
--- NOTE | 2024-10-01 10:17 | MHC.OFFVIS ---
Vital Signs 10/01/24 10:25 Height 5 ft 9 in Weight 189 lb BMI 27.9 BP 160/78 H Blood Pressure Location Lt brachial Position Sitting Respiration 16 Intake Visit Reasons: Pill count Intake Note: Wilfredo comes in today for a pill count to oxycodone-acetaminophen, patient should have 48 tablets and presents with 53 tablets which he last took today 10/01/24 at 8am. Pain today 6/10. Binder Layer Required: No Accompanied by: Self / Same As Patient Allergies clindamycin Allergy (Unknown, Verified 10/01/24 10:26) Unknown HPI Comments Details: Patient presents today for a pill count. Patient is supposed to have #48 pills, in his possession has #53 pills. This demonstrates a responsible attitude in regards to the medication regimen. Patient reports reasonable analgesia on his current regimen of oxycodone-acetaminophen 5-325 mg 1 tab BID prn with no noted side effects. Reports recent exacerbation of pain in sternum region after backyard work. He has been taking topical Aleve with some relief and was told by his Log Skidder ok to take oral Aleve 1-2 times per week. We also discussed increasing opioid to 7.5 mg BID or 5 mg TID prn, patient would like to hold off on this as he is able to manage his pain at this time on current opioid regime. Denies any chest pain or tightness or shortness of breaths, constipation, nausea, sedation, dizziness, or urinary retention. Pain is rated at 6/10. He also takes gabapentin with good tolerance and no side effects. Denies any recent cough, cold, infection, fever, or any other significant changes in her medical history, medications or recent hospitalizations. [facility] Medical History Chest pain Blunt chest trauma Hyperlipidemia COPD (chronic obstructive pulmonary disease) IBS (irritable bowel syndrome) Insomnia Tobacco abuse disorder Hypertension Hematuria History of esophageal reflux Depression Back pain Apnea ASHD (arteriosclerotic heart disease) Asthma Surgical History History of thoracic surgery (~01/2023) Hx of cholecystectomy (~2020) S/P CABG x 5 (~12/2022) Social History Alcohol intake: current Alcohol intake frequency: holidays/special occasions only Patient Tobacco Use Status: Current someday Tobacco user Tobacco use type: Cigarette Review of Systems Const All systems reviewed & are unremarkable except as noted in HPI and below Physical Exam Vital Signs: Last Vital Signs Resp 16 10/01/24 10:25 BP 160/78 H 10/01/24 10:25 BMI result Body Mass Index 27.9 General: Appears afebrile. Alert and oriented. Mood and affect appropriate. Follows and participates in conversation appropriately. Respiratory effort is unlabored. Able to transition from sit to stand unassisted. Ambulates with bilaterally normal heel strike and toe off. Chest Chest palpation & inspection: normal inspection of the chest, no localized rib tenderness and tenderness sternum (along scars line, no swelling or erythema) Psych Appearance: grossly normal Mental Status: mental status grossly normal Speech and movement: Normal speech and movement present and Clear speech present Affect: normal affect Attitude: cooperative Thought process: Normal thought process present Thought content: Normal thought content present, suicidality (none), no hallucinations and No Depressive thoughts present Insight: Good insight present (Psych) Judgement: Good judgement present (Psych) Results Reviewed Results Reviewed: No imaging is available for review. Assessment & Plan Assessment & Plan (1) Chronic chest wall pain: Code(s): R07.89 - Other chest pain; G89.29 - Other chronic pain Category: Medical (2) Bilateral shoulder pain: Code(s): M25.511 - Pain in right shoulder; M25.512 - Pain in left shoulder Category: Medical (3) History of thoracic surgery: Onset Date: ~01/2023 Comment: [facility] 02/10/23: open wound sternum and mediastinum 30 cm x 8 cm, with exposed heart, s/p reconstruction anterior chest wall with bilateral pectoralis major myocutaneous flap and open biopsy of sternum bone and treatment of osteomyelitis of sternum Code(s): Z98.890 - Other specified postprocedural states Category: Surgical (4) Opioid contract exists: Code(s): Z79.891 - skilled nursing (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 There is no evidence of misuse, abuse or diversion at this time. [employer] reviewed. Refill for Percocet 5 mg-325 mg BID prn is sent with advanced date of 10/25/24. Patient has Narcan at home. Continue gabapentin as needed. Patient will notify our office if current pain regimen provides inadequate pain management for potential opioid dose increase as discussed today. All questions were answered and the patient is in agreement with the plan. Follow up in 4-5 weeks for pill count and sooner as needed. Medications: Refilled oxycodone-acetaminophen 5-325 mg Partial Fill upon patient request. 1 tab PO BID 30 days PRN 60 tabs 0RF pain G89.29 - Other chronic pain, M25.511 - Pain in right shoulder, M25.512 - Pain in left shoulder, R07.89 - Other chest pain, Z98.890 - Other specified postprocedural states Coding Level of Care Code Est Pt Level 4 (04954) Complex EM visit Add On G2211 Diagnoses Chronic chest wall pain R07.89; G89.29 Bilateral shoulder pain M25.511; M25.512 History of thoracic surgery Z98.890 Opioid contract exists Z79.891
[2024-10-01 10:25] VITALS: BP 160/78; RESP 16; BMI 27.9
--- OUTSIDE RECORDS SUMMARY | 2024-10-01 10:37 | XMS_ITS | Clinical Summary ---
Author Organization [facility] Address [address] [place] [address] Phone Care Team Providers Care Sole Splitter Name Role Phone Cesario Hernandez MD Primary Care Provider [phone] Allergies Active Allergy Reactions Criticality Noted Date Comments Adhesive Low 04/30/2023 Other reaction(s): SKIN IRRITATION Clindamycin Low 12/19/2020 Damage to colon ( c -diff ) Other reaction(s): CDIFF Damage to colon ( c -diff ) Medications ascorbic acid (VITAMIN C) 250 mg tablet [...] Administer 2 sprays into affected nostril(s). Active isosorbide mononitrate (IMDUR) 60 mg 24 hr tablet Take 1 tablet (60 mg total) by mouth 1 (one) time each day. Active mirtazapine (REMERON) 7.5 mg tablet Take 1 tablet (7.5 mg total) by mouth. Active omeprazole (PRILOSEC) 20 mg tablet,delayed release (DR/EC) Take 1 tablet (20 mg total) by mouth. 1 Active terazosin (HYTRIN) 5 mg capsule Take 1 capsule (5 mg total) by mouth 2 (two) times a day. 3 Active Combivent Respimat 20-100 mcg/actuation inhaler Inhale 1 puff by mouth 4 (four) times a day. Active lisinopriL (PRINIVIL,ZESTR IL) 5 mg tablet TAKE 1 TABLET BY MOUTH EVERY DAY 90 tablet 2 5 Active gabapentin (NEURONTIN) 300 mg capsule Take 1 capsule (300 mg total) by mouth 3 (three) times a day. Active oxyCODONE-aceta minophen (PERCOCET) 5-325 mg per tablet Take 1 tablet by mouth 2 (two) times a day if needed. Max Daily Amount: 2 tablets Active multivitamin tablet Take 1 tablet by mouth 1 (one) time each day. Active metoprolol succinate (Toprol XL) 100 mg 24 hr tablet Take 1 tablet (100 mg total) by mouth 1 (one) time each day. Do not crush or chew. 90 each 1 5 03/07/20 25 Active acetaminophen (TYLENOL) 325 mg tablet Take 2 tablets (650 mg total) by mouth. 09/09/19 25 Discontin ued(Thera py completed ) gabapentin (NEURONTIN) 100 mg capsule Take 2 capsules (200 mg total) by mouth. 09/09/19 25 Discontin ued(Dose adjustmen t) metoprolol succinate (TOPROL-XL) 50 mg 24 hr tablet Take 1.5 tablets (75 mg total) by mouth 1 (one) time each day. 3 09/09/19 25 Discontin ued(Presc riber Discontin ued) oxyCODONE (ROXICODONE) 5 mg immediate release tablet Take 1 tablet (5 mg total) by mouth every 6 hours as needed. 09/09/19 25 Discontin ued(Thera py completed ) Active Problems Problem Noted Date Diagnosed Date Midline sternotomy scar 04/01/2024 Assessment & Plan (09/08/2024 2:58 PM EDT): The patient has a history of coronary artery bypass x 5 in December 2020 status post sternal wire fracture that required redo sternotomy in November 2022. He is also status post sternal dehiscence and sternal osteomyelitis that required reconstruction of his chest wall with major myocutaneous flap in January 2023 followed by [facility] plastic surgery service. He has chronic residual postsurgical chest discomfort syndrome followed by [facility] pain management service. In the past, the patient was seen at [facility] [place] for the possibility of redo reconstructive surgery which would involve an extensive graft, however the patient decided not to proceed with surgery. He reports his pain level is currently under control and does not want to undergo any further surgeries at this time. He has chronic left chest swelling and skin changes to the lower portion of the sternotomy scar which have not changed. I recommend he continue to follow with [facility] plastic surgery service and/or the [place] plastic surgery service if he would like to be a candidate for redo surgery in the future. RBBB 02/13/2024 Overview (04/01/2024): Last Assessment & [...] the patient's chest CT scan done at [facility] in January 2023 he had evidence [...] regimen with atorvastatin 80 mg orally daily. Assessment & Plan (09/08/2024 2:58 PM EDT): Patient has a history of hyperlipidemia as well as a history of coronary artery disease. Last LDL at goal. He will continue his current statin therapy as prescribed. CAD (coronary artery disease) 05/02/2021 Overview (04/01/2024): [...] medical therapy with metoprolol, aspirin, and atorvastatin. Assessment & Plan (09/08/2024 2:58 PM EDT): Patient has a history of coronary artery disease status post CABG x 5 in December 2020. Last left heart catheterization October 2022 showed patent bypass grafts. Currently, on today's visit he denies any anginal symptoms. He continues on medical therapy with isosorbide mononitrate, metoprolol, atorvastatin, and aspirin. For ease of administration, the patient is requesting metoprolol 100 mg tablet daily. Given his blood pressures and recent Holter monitor which showed PVCs as well as resting heart rate today, I think this is reasonable. Cardiomyopathy (CMS/HCC V24, CMS/HCC V28) 2020 Overview (04/01/2024): Last Assessment & Plan: Patient has a history of ischemic cardiomyopathy. His last echocardiogram in October 2022 showed LVEF to be 55 to 60%. At this point, we will continue current therapies. 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 Last echocardiogram April 2024 showed normal LV function 55 to 60% with small left ventricular apical aneurysm. He continues on medical therapy with beta-kelly and lisinopril as prescribed. No changes to medical therapies. HTN (hypertension) 12/18/2020 Overview (04/01/2024): Last Assessment & Plan: Patient has a history of hypertension. His blood pressure is noted to be well controlled today. We will continue his current antihypertensive medication regimen with lisinopril and metoprolol. Assessment & Plan (09/08/2024 2:58 PM EDT): Patient's blood pressure is acceptable today. He will continue his current antihypertensive medication regimen as prescribed. PVC (premature ventricular contraction) 12/19/19 Overview (04/01/2024): [...] Encounters Date Type Department Care Team Description 09/09/2024 Telephone [facility] Cardiology [facility] [address] [facility] [address] [place] [phone] Alexy Robledo MD 09/08/2024 12:40 PM EDT Office Visit [facility] Dr [facility] Christopher [address] [place] [address] Greer Cotton NP Coronary artery disease of [place] artery of [place] heart with stable angina pectoris (CMS/[facility] V24) (Primary Dx); Mixed hyperlipidemia; Primary hypertension; Midline sternotomy scar; Ischemic cardiomyopathy 07/21/2024 10:35 AM EST - 07/21/2024 11:59 PM EST Hospital Encounter [facility] CT Scan [address] [place] [address] Calcified granuloma of lung Discharge Disposition: Home or Self Care 07/08/2024 1:15 PM EST Office Visit Pulmonolgy - [place] [address] [place] [address] Vicenta Salazar MD Pulmonary emphysema, unspecified emphysema type ([facility] V24, [facility] V28) (Primary Dx); Abnormal chest CT; Ex-smoker from Last 3 Months Immunizations Name Administration Dates Next Due Dash[employer] O[employer] Servis SARS-CoV-2 COVID -19, vector-nr, [id number], preservative free 07/30/2020 Surgical History Surgery Date Site/Laterality Comments CHOLECYSTECTOMY PROCEDURE: HISTORICAL CHOLECYSTECTOMY; COMMENT: acute/chronic cholecystitis// removal 2020 Dr. Peterson, [facility] Medical History Medical History Date Comments Apnea DX:Apnea Asthma DX:Asthma Back pain DX:Back pain COPD (chronic obstructive pu lmonary disease) ([facility] V24, [facility] V28) DX:COPD (chronic o bstructive pulmonary disease) ([facility]) Depression DX:Depression GERD (gastroesophageal reflux disease) DX:GERD [...] Smoking Tobacco: Former Cigarettes 1 50 1 97 - 2020 Passive Smoke Exposure: Past Smokeless Tobacco: Former Alcohol Use Standard Drinks/Week Comments Not Currently 0 (1 standard drink = 0.6 oz pur e alcohol) Sex and Gender Information Value Date Recorded Sex Assigned at Male 06/28/2024 3:23 PM EST Legal Sex Male 6:55 PM EST Gender Identity Male 06/28/2024 3:23 PM EST Sexual Orientation Choose not to disclose 02/10/ 2025 3:23 PM EST Obstetrics History Last Filed Vital Signs Vital Sign Reading Time Taken Comments Blood Pressure 130/80 09/08/2024 12:38 PM EDT Pulse 83 09/08/2024 12:38 PM EDT Temperature 35.8 ??C (96.5 ??F) 07/08/2024 1:14 PM ES T Respiratory Rate 19 07/08/2024 1:14 PM EST Oxygen Saturation 94% 09/08/2024 12:38 PM EDT Inhaled Oxygen Concentration - - Weight 85.3 kg (188 lb 1.6 oz) 09/08/2024 12:38 PM EDT Height 175.3 cm (5' 9 ) 09/08/2024 12:38 PM EDT Body Mass Index 27.78 09/08/2024 12:38 PM EDT Plan of Treatment Upcoming Encounters Date Type Department Care Team ([facility] st Contact Info) Description 01/10/2025 11:30 AM EDT Office Visit Pulmonolgy - [place] [address] [place] [phone] Vicenta Salazar MD [address] [address] Health Maintenance Due Date Last Done Comments [...] Signed Date: 07/23/2024 09:02 ET Workstation ID: [id number] Transcribed By: Self Edit Transcribed Date: 07/23/2024 [...] of contrast discarded: 0 mL FINDINGS: Digital variety lathe operator demonstrates sternal wire fragment. Large lung volumes. [...] of contrast discarded: 0 mL FINDINGS: Digital variety lathe operator demonstrates sternal wire fragment. Large lungvolumes. Lower [...] Signed Date: 07/23/2024 09:02 ET Workstation ID: [id number] Transcribed By: Self Edit Transcribed Date: 07/23/2024 08:43 ET us Cesario Hernandez MD IM CT PROCEDURES Final [...] Signed Date: 04/02/2024 10:00 ET Workstation ID: [id number] Transcribed By: Self Edit Transcribed Date: 04/02/2024 [...] throughout the spine. Victor M John MD IMG CT PROCEDURES Final Result from Last 3 Months or Most Recently Relevant to Health Maintenance Insurance MEDICARE [facility] Care Teams Sole Splitter Relationship Specialty Start Date End Date Cesario Hernandez MD [address] [place] [address] PCP - General Internal Medicine 12/15/20
--- OUTSIDE RECORDS SUMMARY | 2024-10-01 10:37 | XMS_ITS | Encounter Summary ---
Author Organization [facility] Address [address] [place] [address] Care Team Providers Care Bread Slicer Machine Name Role Phone Cesario Hernandez MD Primary Care Provider [phone] Encounter Details Date Type Department Care Team ([facility] st Contact Info) Description 09/09/2024 Telephone [facility] [address] [place] [phone] RubensAlexy Cardozo MD [address] [place] [address] Dr [address] [place] [address] Social History Tobacco Use Types Packs/Day Years [...] not to disclose 2024 3:23 PM EST documented as of this encounter Progress Notes * Jean-Paul Young - 09/09/2024 11:14 AM EDT Patient confirming when next appointment is and I told him August 2025. documented in this encounter Plan of Treatment Upcoming Encounters Date Type Department Care Team (Late st Contact Info) Description 01/10/2025 11:30 AM EDT Office Visit Pulmonolgy - [place] [address] [facility] [address] [place] [address] Vicenta Salazar MD [address] [address] documented as of this encounter Visit Diagnoses Not on filedocumented in this encounter Care Teams Bread Slicer Machine Relationship Specialty Start Date End Date Cesario Hernandez MD [address] [place] [address] PCP - General Internal Medicine 12/15/20 documented as of this encounter
--- OUTSIDE RECORDS SUMMARY | 2024-10-01 10:37 | XMS_ITS | Clinical Summary ---
Author Organization [facility] Address [address] [place] [id number] Care Team Providers Care Atmospheric Physicist Name Role Phone Cesario Hernandez MD Primary Care Provider [phone] Allergies Active Allergy Reactions Criticality Noted Date [...] today by the cardiac surgery office at [facility]. He will be evaluated by Dr. [...] The patient had a CABG x5 at [facility] on 01/08/[address] Pantoja. On today's visit, the patient brought a report of a chest x-ray that was done at [facility] on 04/19/2022. The chest x-ray was [...] had a chest CT scan done at [facility] on 04/22/2022 and this study also [...] that he would be contacted by the [facility] cardiac surgery office to arrange an [...] age to complete this topic Care Teams Atmospheric Physicist Relationship Specialty Start Date End Date Cesario Hernandez MD [address] [place] [address] PCP - General Lead Java Developer Architect 04/15/23
== END 2024-10-01 10:35 | disposition home or self-care (01) ==
PROVIDERS: PCP Internal Medicine; Visit Provider Nurse Practitioner Family
DX: R07.89 Other chest pain (principal); G89.29 Other chronic pain; M25.511 Pain in right shoulder; M25.512 Pain in left shoulder; Z98.890 Other specified postprocedural states; Z79.891 Long term (current) use of opiate analgesic
CPT/HCPCS: 99214; G2211

== ENCOUNTER → 2024-10-01 10:16 | Outpatient (BNVA) | payer MEDICARE, SELFPAY | PROVIDERS: PCP Internal Medicine; Visit Provider Nurse Practitioner Family | DX: Z51.81 Encounter for therapeutic drug level monitoring (principal); R07.89 Other chest pain; M25.511 Pain in right shoulder; M25.512 Pain in left shoulder; G89.29 Other chronic pain; Z98.890 Other specified postprocedural states; Z79.891 Long term (current) use of opiate analgesic | CPT/HCPCS: 99212 ==

== ENCOUNTER 2024-10-29 10:26 | Outpatient (AMB) | payer MEDICARE, SELFPAY ==
--- NOTE | 2024-10-29 10:28 | MHC.OFFVIS ---
Vital Signs 10/29/24 10:46 Height 5 ft 9 in Weight 189 lb BMI 27.9 BP 140/78 H Blood Pressure Location Lt brachial Position Sitting Pulse 72 Pulse Source Pulse Oximeter Pulse Oximetry (%) 96 Oxygen Delivery Method Room Air Intake Visit Reasons: Pill count Intake Note: Wilfredo comes in today for a pill count to oxycodone-acetaminophen, patient should have 54 tablets and presents with 57 tablets which he last took today 10/29/24 at 8:30 am. Pain today 08/26 Autos Disassembler Required: No Accompanied by: Self / Same As Patient Allergies clindamycin Allergy (Unknown, Verified 10/29/24 10:46) Unknown HPI Comments Details: Patient presents today for a pill count. Patient is supposed to have #54 pills, in his possession has #57 pills. This demonstrates a responsible attitude in regards to the medication regimen. Patient reports reasonable analgesia on his current regimen of oxycodone-acetaminophen 5-325 mg 1 tab BID prn with no noted side effects. The patient's chronic pain scenario stems from thoracotomy and CABG surgery performed in 2022, primarily manifesting in episodic exacerbations after physical activity. Pain is managed with oxycodone/acetaminophen 5/325 mg twice daily as needed, and the medication count has been consistent and correct. Additional management includes topical analgesics with occasional soreness following activities like yard work. Constipation is managed through dietary means without pharmacological assistance, maintaining adequate hydration and a balanced diet. The patient's current psychological state is stable, with no evidence of depression or adverse impact on daily activities, and reports satisfactory control over these symptoms. Denies any chest pain or tightness or shortness of breaths, constipation, nausea, sedation, dizziness, or urinary retention. Pain is rated at 4/10. He also takes gabapentin with good tolerance and no side effects. Denies any recent cough, cold, infection, fever, or any other significant changes in her medical history, medications or recent hospitalizations. [facility] Medical History Chest pain Blunt chest trauma Hyperlipidemia COPD (chronic obstructive pulmonary disease) IBS (irritable bowel syndrome) Insomnia Tobacco abuse disorder Hypertension Hematuria History of esophageal reflux Depression Back pain Apnea ASHD (arteriosclerotic heart disease) Asthma Surgical History History of thoracic surgery (~01/2023) Hx of cholecystectomy (~2020) S/P CABG x 5 (~12/2022) Social History Alcohol intake: current Alcohol intake frequency: holidays/special occasions only Patient Tobacco Use Status: Current someday Tobacco user Tobacco use type: Cigarette Review of Systems Const Details: - Cardiovascular: Denies any current cardiac symptoms post-CABG; monitors blood pressure at home. - Gastrointestinal: Denies constipation issues despite chronic opioid use; manages with diet. - Musculoskeletal: Reports episodic back soreness associated with physical activities. - Psychological: Denies depression; reports good spirits and psychological stability. All systems reviewed & are unremarkable except as noted in HPI and below Physical Exam Vital Signs: Last Vital Signs Pulse 72 10/29/24 10:46 BP 140/78 H 10/29/24 10:46 Pulse Ox 96 10/29/24 10:46 Oxygen Delivery Method Room Air 10/29/24 10:46 BMI result Body Mass Index 27.9 General: Appears afebrile. Alert and oriented. Mood and affect appropriate. Follows and participates in conversation appropriately. Respiratory effort is unlabored. Able to transition from sit to stand unassisted. Ambulates with bilaterally normal heel strike and toe off. Chest Chest palpation & inspection: normal inspection of the chest, no localized rib tenderness and tenderness sternum (along scars line, no swelling or erythema) Back/Spine/Pelvis Cervical Spine: loss of normal cervical lordosis, cervical muscular tenderness and No Cervical spine tenderness Thoracic/Lumbar Spine: pain with thoraco-lumbar ROM, No paraspinal muscle tenderness, thoraco-lumbar ROM limited, No thoracic spinal tenderness and lumbar spinal tenderness at L4 and at L5 Psych Appearance: grossly normal and well kempt Mental Status: mental status grossly normal Speech and movement: Normal speech and movement present and Clear speech present Affect: normal affect Attitude: cooperative Thought process: Normal thought process present Thought content: Normal thought content present, suicidality (none), no hallucinations and No Depressive thoughts present Insight: Good insight present (Psych) Judgement: Good judgement present (Psych) Results Reviewed Results Reviewed: No imaging is available for review. Assessment & Plan Assessment & Plan (1) Chronic chest wall pain: Code(s): R07.89 - Other chest pain; G89.29 - Other chronic pain Category: Medical (2) Bilateral shoulder pain: Code(s): M25.511 - Pain in right shoulder; M25.512 - Pain in left shoulder Category: Medical (3) History of thoracic surgery: Onset Date: ~01/2023 Comment: [facility] [place]: open wound sternum and mediastinum 30 cm x 8 cm, with exposed heart, s/p reconstruction anterior chest wall with bilateral pectoralis major myocutaneous flap and open biopsy of sternum bone and treatment of osteomyelitis of sternum Code(s): Z98.890 - Other specified postprocedural states Category: Surgical (4) Opioid contract exists: Code(s): Z79.891 - [facility] (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 There is no evidence of misuse, abuse or diversion at this time. MassPat reviewed. Refill for Percocet 5 mg-325 mg BID prn is sent with advanced date of 11/24/24. Patient has Narcan at home. Continue gabapentin 300 mg TID, monitor for any side effects, precautions were reviewed with patient. All questions were answered and the patient is in agreement with the plan. Follow up in 4-5 weeks for pill count and sooner as needed. Medications: Refilled oxycodone-acetaminophen 5-325 mg Partial Fill upon patient request. 1 tab PO BID PRN 60 tabs 0RF pain 30 days G89.29 - Other chronic pain, M25.511 - Pain in right shoulder, M25.512 - Pain in left shoulder, R07.89 - Other chest pain, Z98.890 - Other specified postprocedural states Coding Level of Care Code Est Pt Level 4 (27297) Complex EM visit Add On G2211 Diagnoses Chronic chest wall pain R07.89; G89.29 Bilateral shoulder pain M25.511; M25.512 History of thoracic surgery Z98.890 Opioid contract exists Z79.891
[2024-10-29 10:46] VITALS: BP 140/78; PULSE 72; O2SAT 96; BMI 27.9
== END 2024-10-29 10:56 | disposition home or self-care (01) ==
LOC: HO.PMC 10:26
PROVIDERS: PCP Internal Medicine; Visit Provider Nurse Practitioner Family
DX: R07.89 Other chest pain (principal); G89.29 Other chronic pain; M25.511 Pain in right shoulder; M25.512 Pain in left shoulder; Z98.890 Other specified postprocedural states; Z79.891 Long term (current) use of opiate analgesic
CPT/HCPCS: 99214; G2211

== ENCOUNTER → 2024-10-29 10:26 | Outpatient (BNVA) | payer MEDICARE, SELFPAY | PROVIDERS: PCP Internal Medicine; Visit Provider Nurse Practitioner Family | DX: Z51.81 Encounter for therapeutic drug level monitoring (principal); M25.511 Pain in right shoulder; M25.512 Pain in left shoulder; R07.89 Other chest pain; G89.29 Other chronic pain; Z79.891 Long term (current) use of opiate analgesic; Z98.890 Other specified postprocedural states | CPT/HCPCS: 99212 ==

== ENCOUNTER 2024-12-03 10:08 | Outpatient (AMB) | payer MEDICARE, SELFPAY ==
--- NOTE | 2024-12-03 10:15 | MHC.OFFVIS ---
Vital Signs 12/03/24 10:21 Height 5 ft 9 in Weight 187 lb 8 oz BMI 27.7 BP 130/72 Blood Pressure Location Lt brachial Position Sitting Pulse 92 Pulse Source Pulse Oximeter Pulse Oximetry (%) 96 Oxygen Delivery Method Room Air Intake Visit Reasons: Pill count Intake Note: Wilfredo comes in today for a pill count to oxycodone-acetaminophen, patient should have 46 tablets and presents with 47 tablets which he last took today 12/03/24 at 8am. Pain tody 4/10 Assistant Director Of Admissions Required: No Accompanied by: Self / Same As Patient Allergies clindamycin Allergy (Unknown, Verified 12/03/24 10:21) Unknown HPI Comments Details: Patient presents today for a pill count. Patient is supposed to have #46 pills, in his possession has #47 pills. This demonstrates a responsible attitude in regards to the medication regimen. Patient reports adequate analgesia on his current regimen of oxycodone-acetaminophen 5-325 mg 1 tab BID prn with no noted side effects. The patient's chronic pain scenario stems from thoracotomy and CABG surgery performed in 2022, primarily manifesting in episodic exacerbations after certain physical activities. Pain is managed with oxycodone/acetaminophen 5/325 mg twice daily as needed, and the medication count has been consistent and correct. Additional management includes topical analgesics, activity modifications, and heat/ice therapy. Denies any chest pain or tightness or shortness of breaths, constipation, nausea, sedation, dizziness, or urinary retention. Pain is rated at 4/10. He also takes gabapentin with good tolerance and no side effects. Denies any recent cough, cold, infection, fever, or any other significant changes in her medical history, medications or recent hospitalizations. [facility] Medical History Chest pain Blunt chest trauma Hyperlipidemia COPD (chronic obstructive pulmonary disease) IBS (irritable bowel syndrome) Insomnia Tobacco abuse disorder Hypertension Hematuria History of esophageal reflux Depression Back pain Apnea ASHD (arteriosclerotic heart disease) Asthma Surgical History History of thoracic surgery (~01/2023) Hx of cholecystectomy (~2020) S/P CABG x 5 (~12/2022) Social History Alcohol intake: current Alcohol intake frequency: holidays/special occasions only Patient Tobacco Use Status: Current someday Tobacco user Tobacco use type: Cigarette Review of Systems Const All systems reviewed & are unremarkable except as noted in HPI and below Physical Exam Vital Signs: Last Vital Signs Pulse 92 12/03/24 10:21 BP 130/72 12/03/24 10:21 Pulse Ox 96 12/03/24 10:21 Oxygen Delivery Method Room Air 12/03/24 10:21 BMI result Body Mass Index 27.7 General: Appears afebrile. Alert and oriented. Mood and affect appropriate. Follows and participates in conversation appropriately. Respiratory effort is unlabored. Able to transition from sit to stand unassisted. Ambulates with bilaterally normal heel strike and toe off. Psych Appearance: grossly normal and well kempt Mental Status: mental status grossly normal Speech and movement: Normal speech and movement present and Clear speech present Affect: normal affect Attitude: cooperative Thought process: Normal thought process present Thought content: Normal thought content present, suicidality (none), no hallucinations and No Depressive thoughts present Insight: Good insight present (Psych) Judgement: Good judgement present (Psych) Results Reviewed Results Reviewed: No imaging is available for review. Assessment & Plan Assessment & Plan (1) Chronic chest wall pain: Code(s): R07.89 - Other chest pain; G89.29 - Other chronic pain Category: Medical (2) Bilateral shoulder pain: Code(s): M25.511 - Pain in right shoulder; M25.512 - Pain in left shoulder Category: Medical (3) History of thoracic surgery: Onset Date: ~01/2023 Comment: [facility] [place]: open wound sternum and mediastinum 30 cm x 8 cm, with exposed heart, s/p reconstruction anterior chest wall with bilateral pectoralis major myocutaneous flap and open biopsy of sternum bone and treatment of osteomyelitis of sternum Code(s): Z98.890 - Other specified postprocedural states Category: Surgical (4) Opioid contract exists: Code(s): Z79.891 - penitentiary (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 There is no evidence of misuse, abuse or diversion at this time. [employer] reviewed. Refill for Percocet 5 mg-325 mg BID prn is sent with advanced date of 12/25/24. Patient has Narcan at home. Continue gabapentin 300 mg TID, monitor for any side effects, precautions were reviewed with patient. All questions were answered and the patient is in agreement with the plan. Follow up in 4-5 weeks for pill count and sooner as needed. Medications: Refilled oxycodone-acetaminophen 5-325 mg Partial Fill upon patient request. 1 tab PO BID PRN 60 tabs 0RF pain 30 days G89.29 - Other chronic pain, M25.511 - Pain in right shoulder, M25.512 - Pain in left shoulder, R07.89 - Other chest pain, Z98.890 - Other specified postprocedural states Coding Level of Care Code Est Pt Level 4 (75082) Complex EM visit Add On G2211 Diagnoses Chronic chest wall pain R07.89; G89.29 Bilateral shoulder pain M25.511; M25.512 History of thoracic surgery Z98.890 Opioid contract exists Z79.893
[2024-12-03 10:21] VITALS: BP 130/72; PULSE 92; O2SAT 96; BMI 27.7
--- OUTSIDE RECORDS SUMMARY | 2024-12-03 10:29 | XMS_ITS | Clinical Summary ---
Author Organization [facility] Address [address] [place] [address] Phone Care Team Providers Care Tie Fastener Name Role Phone Cesario Hernandez MD Primary Care Provider [phone] Allergies Active Allergy Reactions Criticality Noted Date [...] 1 (one) time each day. 2 Active fluticasone propionate (FLONASE) 50 mcg/actuation nasal [...] mouth 3 (three) times a day. Active oxyCODONE-acetam inophen (PERCOCET) 5-325 mg per tablet Take 1 [...] 90 each 1 5 03/07/20 25 Active atorvastatin (LIPITOR) 80 mg tablet TAKE 1 TABLET BY MOUTH [...] myocutaneous flap in January 2023 followed by [facility] plastic surgery service. He has chronic residual postsurgical chest discomfort syndrome followed by [place] pain management service. In the past, the patient was seen at [facility] in [place] for the possibility of redo reconstructive surgery [...] I recommend he continue to follow with [facility] plastic surgery service and/or the [place] plastic surgery service if he would like [...] the patient's chest CT scan done at [facility] in January 2023 he had evidence of [...] Type Department Care Team Description 09/09/[address] [place] [address] Alexy Robledo MD 09/08/2024 12:40 PM EDT Office Visit [address] [place] [address] Greer Cotton NP Coronary artery disease of [place] artery of [place] heart with stable angina pectoris ([facility] V24) (Primary Dx); Mixed hyperlipidemia; Primary hypertension; Midline sternotomy scar; Ischemic cardiomyopathy from Last 3 Months Immunizations Name Administration Dates Next Due [employer] SARS-CoV-2 COVID -19, vector-nr, rS-Ad26, preservative free 07/30/2020 Surgical History Surgery Date Site/Laterality Comments CHOLECYSTECTOMY PROCEDURE: HISTORICAL CHOLECYSTECTOMY; COMMENT: acute/chronic cholecystitis// removal 2020 Dr. [place] [facility] Medical History Medical History Date Comments Apnea DX:Apnea Asthma DX:Asthma Back pain DX:Back pain COPD (chronic obstructive pu lmonary disease) ([facility]/HCC V24, [facility]/HCC V28) DX:COPD (chronic o bstructive pulmonary disease) ([facility]) Depression DX:Depression GERD (gastroesophageal reflux disease) [...] 83 09/08/2024 12:38 PM EDT Temperature 35.8 C (96.5 F) 07/08/2024 1:14 PM EST Respiratory Rate 19 07/08/2024 1:14 PM EST [...] 11:30 AM EDT Office Visit Pulmonolgy - [place] [address] [facility] [address] [place] [id number] Vicenta Salazar MD [address] [address] Health Maintenance Due Date Last Done Comments [...] 2024 06/09/2023, 01/22/2022, 08/18/2021, Additional history exists Influenza Vaccine (#1) 2025 , 01/06/2023, 01/22/2022, Additional history exists Lung Cancer Screening (Low Dose CT) 04/01/2025 04/01/2024 Zoster Vaccines Completed 05/24/2021, 03/16/2021 RSV Immunization Adult Patients Completed 06/09/2023 HIB Vaccines Aged Out No longer eligi [...] Name Priority Date/Time Associated Diagnosis Comments CT LUNG SCREENING Routine 04/01/2024 12: 43 PM EST Tobacco abuse Personal history of nicotine dependence from Last 3 Months or Most Recently Relevant to Health Maintenance Results * CT Lung Screening (04/01/2024 12:43 PM EST) Anatomical Region Laterality Modality Chest Computed Tomogra phy 04/02/2024 9:01 AM EST Impressions 04/02/2024 10:00 AM EST No suspicious pulmonary nodules. Mediastinal and bilateral axillary lymphadenopathy may be reactive or related to an underlying lymphoproliferative disorder such as lymphoma. Correlate with any prior outside imaging to ensure stability over time. Chronic sternotomy wound dehiscence with large chest wall fluid collection which may represent a hematoma/seroma; however, sterility indeterminate. Lung RADS 1S-negative. Recommend continued lung screening with low-dose chest CT in 12 months. -------- FINAL REPORT -------- Dictated By: CIERA GARCIA Dictated Date: 04/02/2024 09:01 ET Assigned Physician: CIERA GARCIA Reviewed and Electronically Signed By: CIERA GARCIA Signed Date: 04/02/2024 10:00 ET Workstation ID: [id number] Transcribed By: Self Edit Transcribed Date: 04/02/2024 09:26 ET Narrative 04/02/2024 10:00 AM EST PROCEDURE: Chest CT INDICATION: Lung cancer screening, greater than 20 pack year smoking history, former smoker TECHNIQUE: Chest CT without contrast. Multi planar reformats were created and interpreted. The examination was performed utilizing dose reduction techniques. Total DLP COMPARISON: No priors available. FINDINGS: LUNGS/PLEURA: Central airways are patent. Severe emphysema. Scattered punctate calcified granulomas throughout lungs. No suspicious pulmonary nodules. Chronic bronchitis. No pleural effusion or pneumothorax. MEDIASTINUM: Thyroid gland is within normal limits. Multiple enlarged mediastinal lymph nodes. For example right paratracheal node measures 13 mm short axis. AP window node measures 14 mm short axis. Small hiatal hernia. Cardiac chambers are normal in size. No pericardial effusion. Prior coronary artery bypass graft with advanced coronary artery calcifications. CHEST WALL: Prominent bilateral axillary lymph nodes measuring up to 14 mm on the left 13 mm on the right. Chronic appearing sternotomy dehiscence with fluid collection in the ventral chest wall at the sternal dehiscence measuring 7 x 5 cm. UPPER ABDOMEN:The visualized portions of the upper abdomen are unremarkable. BONES: Cervical fusion hardware. Chronic sternotomy dehiscence. Degenerative changes seen throughout the spine. us Victor M John MD IM CT PROCEDURES Final Result from Last 3 Months or Most Recently Relevant to Health Maintenance Insurance MEDICARE [facility] Care Teams Tie Fastener Relationship Specialty Start Date End Date Cesario Hernandez MD [address] [place] [id number] PCP - General Internal Medicine 12/15/20
--- OUTSIDE RECORDS SUMMARY | 2024-12-03 10:29 | XMS_ITS | Clinical Summary ---
Author Organization [facility] Address [address] [place] [id number] Care Team Providers Care S[employer]rib[employer] Consultant Name Role Phone Cesario Hernandez MD Primary Care Provider [phone] Allergies Active Allergy Reactions Criticality Noted Date [...] today by the cardiac surgery office at [facility]. He will be evaluated by [...] The patient had a CABG x5 at [facility] on 01/08/[address] Pantoja. On today's visit, the patient brought a report of a chest x-ray that was done at [facility] on 04/19/2022. The chest x-ray [...] had a chest CT scan done at [facility] on 04/22/2022 and this study [...] that he would be contacted by the [facility] cardiac surgery office to arrange [...] 95 04/30/2023 11:44 AM EST Temperature 36.6 C (97.8 F) 04/30/2023 11:44 AM EST Respiratory Rate 16 04/30/2023 11:44 AM EST [...] 5 season) 2024 07/30/2020 Influenza Vaccine (#1) 2025 Hepatitis B Vaccines Aged Out No long er eligible based on patient's age to complete this topic RSV Ped < 20 months Aged Out No longe r eligible based on patient's age to complete this topic Care Teams [employer] Consultant Relationship Specialty Start Date End Date Cesario Hernandez MD [address] [facility] [address] [place] [address] PCP - General Fisher Purse Seine 04/15/23
== END 2024-12-03 10:29 | disposition home or self-care (01) ==
LOC: HO.PMC 10:09
PROVIDERS: PCP Internal Medicine; Visit Provider Nurse Practitioner Family
DX: R07.89 Other chest pain (principal); G89.29 Other chronic pain; M25.511 Pain in right shoulder; M25.512 Pain in left shoulder; Z98.890 Other specified postprocedural states; Z79.891 Long term (current) use of opiate analgesic
CPT/HCPCS: 99214; G2211

== ENCOUNTER → 2024-12-03 10:08 | Outpatient (BNVA) | payer MEDICARE, SELFPAY | PROVIDERS: PCP Internal Medicine; Visit Provider Nurse Practitioner Family | DX: Z51.81 Encounter for therapeutic drug level monitoring (principal); M25.511 Pain in right shoulder; M25.512 Pain in left shoulder; R07.89 Other chest pain; G89.29 Other chronic pain; Z98.890 Other specified postprocedural states; Z79.891 Long term (current) use of opiate analgesic | CPT/HCPCS: 99212 ==

== ENCOUNTER 2024-12-31 10:10 | Outpatient (AMB) | payer MEDICARE, SELFPAY ==
--- NOTE | 2024-12-31 10:13 | MHC.OFFVIS ---
Vital Signs 12/31/24 10:32 Height 5 ft 9 in Weight 186 lb BMI 27.5 BP 132/68 Blood Pressure Location Lt brachial Position Sitting Pulse 80 Pulse Source Pulse Oximeter Pulse Oximetry (%) 96 Oxygen Delivery Method Room Air Intake Visit Reasons: Pill Count/ random UDS Intake Note: Wilfredo comes in today for a pill count to oxycodone-acetaminophen, patient should have 50 tablets and presents with 51 tablets which he last took today at 8:15am. Pain today 10/26 Patient will also have a random UDS, aware that he will need to go to the lab on the first floor of this building today 12/31/24 before 1pm. Cryptographic Technician Required: No Allergies clindamycin Allergy (Unknown, Verified 12/31/24 10:34) Unknown HPI Comments Details: Patient presents today for a pill count. Patient is supposed to have #50 pills, in his possession has #51 pills. This demonstrates a responsible attitude in regards to the medication regimen. Patient reports adequate analgesia on his current regimen of oxycodone-acetaminophen 5-325 mg 1 tab BID prn with no noted side effects. Patient suffers from chronic pain related to thoracotomy and CABG surgery performed in 2022, primarily manifesting in episodic exacerbations after certain physical activities. Pain is managed with oxycodone/acetaminophen 5/325 mg twice daily as needed, and the medication count has been consistent and correct. Additional management includes topical analgesics, activity modifications, and heat/ice therapy. Will obtain random UDS today. Denies any chest pain or tightness or shortness of breaths, constipation, nausea, sedation, dizziness, or urinary retention. Pain is rated at 6/10. He also takes gabapentin with good tolerance and no side effects. Denies any recent cough, cold, infection, fever, or any significant changes in his medical history, medications or recent hospitalizations. [facility] Medical History Chest pain Blunt chest trauma Hyperlipidemia COPD (chronic obstructive pulmonary disease) IBS (irritable bowel syndrome) Insomnia Tobacco abuse disorder Hypertension Hematuria History of esophageal reflux Depression Back pain Apnea ASHD (arteriosclerotic heart disease) Asthma Surgical History History of thoracic surgery (~01/2023) Hx of cholecystectomy (~2021) S/P CABG x 5 (~12/2022) Social History Alcohol intake: current Alcohol intake frequency: holidays/special occasions only Patient Tobacco Use Status: Current someday Tobacco user Tobacco use type: Cigarette Review of Systems Const All systems reviewed & are unremarkable except as noted in HPI and below Physical Exam General: Appears afebrile. No acute distress. Alert and oriented. Mood and affect appropriate. Follows and participates in conversation appropriately. Respiratory effort is unlabored. No cough. No dyspnea. Able to transition from sit to stand unassisted. Ambulates with bilaterally normal heel strike and toe off. Psych Appearance: grossly normal and well kempt Mental Status: mental status grossly normal Speech and movement: Normal speech and movement present and Clear speech present Affect: normal affect Attitude: cooperative Thought process: Normal thought process present Thought content: Normal thought content present, suicidality (none), no hallucinations and No Depressive thoughts present Insight: Good insight present (Psych) Judgement: Good judgement present (Psych) Results Reviewed Results Reviewed: No imaging is available for review. Assessment & Plan Assessment & Plan (1) Chronic chest wall pain: Code(s): R07.89 - Other chest pain; G89.29 - Other chronic pain Category: Medical (2) Bilateral shoulder pain: Code(s): M25.511 - Pain in right shoulder; M25.512 - Pain in left shoulder Category: Medical (3) History of thoracic surgery: Onset Date: ~01/2023 [place] [facility] [place] open wound sternum and mediastinum 30 cm x 8 cm, with exposed heart, s/p reconstruction anterior chest wall with bilateral pectoralis major myocutaneous flap and open biopsy of sternum bone and treatment of osteomyelitis of sternum Code(s): Z98.890 - Other specified postprocedural states Category: Surgical (4) Opioid contract exists: Code(s): Z79.891 - [facility] (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 There is no evidence of misuse, abuse or diversion at this time. MassPat reviewed. Will obtain random UDS today. Refill for Percocet 5 mg-325 mg BID prn is sent with advanced date of 01/24/25. Patient has Narcan at home. Continue gabapentin 300 mg TID, monitor for any side effects, precautions were reviewed with patient. All questions were answered and the patient is in agreement with the plan. Follow up in 4-5 weeks for pill count/UDS review and sooner as needed. Medications: Refilled oxycodone-acetaminophen 5-325 mg Partial Fill upon patient request. 1 tab PO BID PRN 60 tabs 0RF pain 30 days G89.29 - Other chronic pain, M25.511 - Pain in right shoulder, M25.512 - Pain in left shoulder, R07.89 - Other chest pain, Z98.890 - Other specified postprocedural states Coding Level of Care Code Est Pt Level 4 (96221) Complex EM visit Add On G2211 Diagnoses Chronic chest wall pain R07.89; G89.29 Bilateral shoulder pain M25.511; M25.512 History of thoracic surgery Z98.890 Opioid contract exists Z79.898
--- OUTSIDE RECORDS SUMMARY | 2024-12-31 10:21 | XMS_ITS | Clinical Summary ---
Author Organization [facility] Address [address] [place] [address] Care Team Providers Care Sales Expert Home Theater Name Role Phone Cesario Hernandez MD Primary Care Provider [phone] Allergies Active Allergy Reactions Criticality Noted Date [...] today by the cardiac surgery office at [facility]. He will be evaluated by Dr. James [...] The patient had a CABG x5 at [facility] on 01/08/[address] Pantoja. On today's visit, the patient brought a report of a chest x-ray that was done at [facility] on 04/19/2022. The chest x-ray was ordered [...] had a chest CT scan done at [facility] on 04/22/2022 and this study also shows [...] that he would be contacted by the [facility] cardiac surgery office to arrange an appointment. [...] age to complete this topic Care Teams Sales Expert Home Theater Relationship Specialty Start Date End Date Cesario Hernandez MD [address] [facility] [address] [place] [address] PCP - General Line Producer 04/15/23
--- OUTSIDE RECORDS SUMMARY | 2024-12-31 10:21 | XMS_ITS | Clinical Summary ---
Author Organization [facility] Address [address] [place] [address] Phone Care Team Providers Care Vmware Administrator Name Role Phone Cesario Hernandez MD Primary Care Provider [phone] Allergies Active Allergy Reactions Criticality Noted Date [...] myocutaneous flap in January 2023 followed by [facility] plastic surgery service. He has chronic residual postsurgical chest discomfort syndrome followed by [facility] pain management service. In the past, the patient was seen at [facility] in [place] for the possibility of redo reconstructive surgery [...] I recommend he continue to follow with [facility] plastic surgery service and/or the [facility] plastic surgery service if he would like [...] the patient's chest CT scan done at [facility] in January 2023 he had evidence [...] will continue with beta-kelly therapy with metoprolol. Immunizations Name Administration Dates Next Due Big Screen Tools/Double Fusion SARS-CoV-2 COVID -19, vector-nr, rS-Ad26, preservative free 07/30/2020 Surgical History Surgery Date Site/Laterality Comments CHOLECYSTECTOMY PROCEDURE: HISTORICAL CHOLECYSTECTOMY; COMMENT: acute/chronic cholecystitis// removal 2020 Dr. [place], [facility] Medical History Medical History Date Comments Apnea DX:Apnea Asthma DX:Asthma Back pain DX:Back pain COPD (chronic obstructive pu lmonary disease) ([facility] V24, CMS/HCC V28) DX:COPD (chronic o bstructive pulmonary disease) ([facility]) Depression DX:Depression GERD (gastroesophageal reflux disease) DX:GERD [...] 11:30 AM EDT Office Visit Pulmonolgy - [place] [address] [facility] [address] [place] [phone] Vicenta Salazar MD [address] [address] Health Maintenance Due Date Last Done Comments DTaP,Tdap,and Td Vaccines (1 - Tdap) 1974 Pneumococcal Vaccine: 50+ Years (2 of 2 - PCV) 02/12/2022 02/12/2021 Abdominal Aortic Aneurysm (AAA) Screen 04/27/2022 Cholesterol Screening (Lipid Panel) 04/27/2022 Colorectal Cancer Screening: Colonoscopy 04/27/2022 Falls Risk Assessment 04/27/2022 Hepatitis C Screening 04/27/2022 Medicare Annual Wellness Visit 04/27/2022 Social Influencers of Health Screening 04/27/2022 Hypertension/CHF/CAD Annual BMP Blood Test 2022 COVID-19 Vaccine ( season) 2024 06/09/2023, 01/22/2022, 08/18/2021, Additional history exists Depression Screening 05/19/2024 Influenza Vaccine (#1) 2025 4, 01/06/2023, 01/22/2022, Additional history exists Lung Cancer [...] Signed Date: 04/02/2024 10:00 ET Workstation ID: [id number] Transcribed By: Self Edit Transcribed Date: 04/02/2024 [...] dehiscence. Degenerative changes seen throughout the spine. Victor M John MD [place] [facility] PROCEDURES Final Result from Last 3 Months or Most Recently Relevant to Health Maintenance Insurance MEDICARE [employer] Care Teams Vmware Administrator Relationship Specialty Start Date End Date Cesario Hernandez MD [address] [place] [address] PCP - General Internal Medicine 12/15/20
[2024-12-31 10:32] VITALS: BP 132/68; PULSE 80; O2SAT 96; BMI 27.5
== END 2024-12-31 10:26 | disposition home or self-care (01) ==
LOC: HO.PMC 10:11
PROVIDERS: PCP Internal Medicine; Visit Provider Nurse Practitioner Family
DX: R07.89 Other chest pain (principal); G89.29 Other chronic pain; M25.511 Pain in right shoulder; M25.512 Pain in left shoulder; Z98.890 Other specified postprocedural states; Z79.891 Long term (current) use of opiate analgesic
CPT/HCPCS: 99214; G2211

== ENCOUNTER → 2024-12-31 10:10 | Outpatient (BNVA) | payer MEDICARE, SELFPAY | PROVIDERS: PCP Internal Medicine; Visit Provider Nurse Practitioner Family | DX: R07.89 Other chest pain (principal); M25.511 Pain in right shoulder; M25.512 Pain in left shoulder; G89.29 Other chronic pain; Z98.890 Other specified postprocedural states; Z79.891 Long term (current) use of opiate analgesic | CPT/HCPCS: 99212 ==

== ENCOUNTER 2025-01-28 10:12 | Outpatient (AMB) | payer MEDICARE, SELFPAY ==
--- NOTE | 2025-01-28 10:17 | A.OFFVIS_ITS ---
Vital Signs 01/28/25 10:24 Height 5 ft 9 in Weight 191 lb 2 oz BMI 28.2 BP 150/78 H Blood Pressure Location Lt brachial Position Sitting Respiration 16 Intake Visit Reasons: PILL COUNT Intake Note: Wilfredo comes in today for a pill count to oxycodone-acetaminophen, patient should have 52 tablets and presents with 55 tablets which he last took today 01/28/25 at 8:15am. Pain today 6/10 Director Of Content Marketing Required: No Accompanied by: Self / Same As Patient Allergies clindamycin Allergy (Unknown, Verified 01/28/25 10:25) Unknown HPI Comments Details: Patient presents today for a pill count. Patient is supposed to have #52 pills, in his possession has #55 pills, indicating adherence to the prescribed regimen. This demonstrates a responsible attitude in regards to the medication regimen. Patient reports adequate analgesia on his current regimen of oxycodone- acetaminophen 5-325 mg 1 tab BID prn with no noted side effects. Patient suffers from chronic pain related to thoracotomy and CABG surgery performed in 2022, primarily manifesting in episodic exacerbations after certain physical activities. Pain is managed with oxycodone/acetaminophen 5/325 mg twice daily as needed, and the medication count has been consistent and correct. Additional management includes topical analgesics, activity modifications, and heat/ice therapy. The patient denies smoking but reports possible secondary exposure to tobacco smoke, as indicated by a positive cotinine test, otherwise recent random UDS was concordant. He does not use nicotine patches or other nicotine products. Denies any chest pain or tightness or shortness of breaths, constipation, nausea, sedation, dizziness, or urinary retention. Pain is rated at 6/10. He also takes gabapentin with good tolerance and no side effects. Denies any recent cough, cold, infection, fever, or any significant changes in his medical history, medications or recent hospitalizations. [facility] Medical History Chest pain Blunt chest trauma Hyperlipidemia COPD (chronic obstructive pulmonary disease) IBS (irritable bowel syndrome) Insomnia Tobacco abuse disorder Hypertension Hematuria History of esophageal reflux Depression Back pain Apnea ASHD (arteriosclerotic heart disease) Asthma Surgical History History of thoracic surgery (~01/2023) Hx of cholecystectomy (~2021) S/P CABG x 5 (~12/2022) Social History Alcohol intake: current Alcohol intake frequency: holidays/special occasions only Patient Tobacco Use Status: Current someday Tobacco user Tobacco use type: Cigarette Review of Systems Const All systems reviewed & are unremarkable except as noted in HPI and below Physical Exam Vital Signs: Last Vital Signs Resp 16 01/28/25 10:24 BP 150/78 H 01/28/25 10:24 BMI result Body Mass Index 28.2 General: Appears afebrile. Alert and oriented. Mood and affect appropriate. Follows and participates in conversation appropriately. Respiratory effort is unlabored. No cough. Able to transition from sit to stand unassisted. Ambulates with bilaterally normal heel strike and toe off. Eyes General: appearance normal, both eyes and all related structures Resp Effort & Inspection: normal respiratory effort, able to speak in complete sentences, no cough and no respiratory distress Psych Appearance: grossly normal and well kempt Mental Status: mental status grossly normal Speech and movement: Normal speech and movement present and Clear speech present Affect: normal affect Attitude: cooperative Thought process: Normal thought process present Thought content: Normal thought content present, suicidality (none), no hallucinations and No Depressive thoughts present Insight: Good insight present (Psych) Judgement: Good judgement present (Psych) Assessment & Plan Assessment & Plan (1) Chronic chest wall pain: Code(s): R07.89 - Other chest pain; G89.29 - Other chronic pain Category: Medical (2) Bilateral shoulder pain: Code(s): M25.511 - Pain in right shoulder; M25.512 - Pain in left shoulder Category: Medical (3) History of thoracic surgery: Onset Date: ~01/2023 Comment: [facility] 02/10/23: open wound sternum and mediastinum 30 cm x 8 cm, with exposed heart, s/p reconstruction anterior chest wall with bilateral pectoralis major myocutaneous flap and open biopsy of sternum bone and treatment of osteomyelitis of sternum Code(s): Z98.890 - Other specified postprocedural states Category: Surgical (4) Opioid contract exists: Code(s): Z79.891 - half-way (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 There is no evidence of misuse, abuse or diversion at this time. [employer]Pat reviewed. Recent random UDS was concordant with positive cotinine test. The patient denies smoking but reports possible secondary exposure to tobacco smoke. Refill for Percocet 5 mg-325 mg BID prn is sent with advanced date of 02/21/25. Patient has Narcan at home. Continue gabapentin 300 mg TID, monitor for any side effects, precautions were reviewed with patient. All questions were answered and the patient is in agreement with the plan. Follow up in 4-5 weeks for pill count and sooner as needed. Medications: Refilled oxycodone-acetaminophen 5-325 mg Partial Fill upon patient request. 1 tab PO BID PRN 60 tabs 0RF pain 30 days G89.29 - Other chronic pain, M25.511 - Pain in right shoulder, M25.512 - Pain in left shoulder, R07.89 - Other chest pain, Z98.890 - Other specified postprocedural states Coding Level of Care Code Est Pt Level 4 (62229) Complex EM visit Add On G2211 Diagnoses Chronic chest wall pain R07.89; G89.29 Bilateral shoulder pain M25.511; M25.512 History of thoracic surgery Z98.890 Opioid contract exists Z79.891
[2025-01-28 10:24] VITALS: BP 150/78; RESP 16; BMI 28.2
--- OUTSIDE RECORDS SUMMARY | 2025-01-28 11:37 | XMS_ITS | Clinical Summary ---
Author Organization [facility] Address [address] [place] [address] Care Team Providers Care Historical Guide Name Role Phone Cesario Hernandez MD Primary Care Provider [phone] Allergies Active Allergy Reactions Criticality Noted Date [...] the cardiac surgery office at [facility]. He will be evaluated by Dr. [...] The patient had a CABG x5 at [facility] on 01/08/[address] Pantoja. On today's visit, the patient brought a report of a chest x-ray that was done at [facility] on 04/19/2022. The chest x-ray was [...] chest CT scan done at [facility] on 04/22/2022 and this study also [...] would be contacted by the [facility] cardiac surgery office to arrange an [...] Risk Assessment 2021 COVID-19 Vaccine (2 - 2024-2 6 season) 2025 07/30/2020 Influenza Vaccine (#1) 2025 Hepatitis B Vaccines Aged Out No long er eligible based on patient's age to complete this topic RSV Ped < 20 months Aged Out No longe r eligible based on patient's age to complete this topic Care Teams Historical Guide Relationship Specialty Start Date End Date Cesario Hernandez MD [address] [facility] [address] [place] [address] PCP - General Manager Workers Compensation 04/15/23
--- OUTSIDE RECORDS SUMMARY | 2025-01-28 11:37 | XMS_ITS | Clinical Summary ---
Author Organization [facility] Address [address] [place] [address] Phone Care Team Providers Care Plant Operations Vice President Name Role Phone Cesario Hernandez MD Primary Care Provider [phone] Allergies Active Allergy Reactions Criticality Noted Date [...] 2 (two) times a day. 3 Active lisinopriL (PRINIVIL,ZESTR IL) 5 mg tablet TAKE 1 TABLET BY MOUTH EVERY DAY 90 tablet 2 5 Active gabapentin (NEURONTIN) 300 mg capsule Take 1 capsule (300 mg total) by mouth 3 (three) times a day. Active oxyCODONE-aceta minophen (PERCOCET) 5-325 mg per tablet Take 1 tablet by mouth 2 (two) times a day if needed. Active multivitamin tablet Take 1 tablet by [...] EVERY DAY 90 tablet 2 5 Active Combivent Respimat 20-100 mcg/actuation inhaler Inhale 1 puff by mouth 4 (four) times a day. 3 each 3 5 01/18/20 26 Active Combivent Respimat 20-100 mcg/actuation inhaler Inhale 1 puff by mouth 4 (four) times a day. 01/11/20 25 Discontin ued(Reord er) Active Problems Problem Noted Date Diagnosed Date [...] myocutaneous flap in January 2023 followed by [facility] plastic surgery service. He has chronic residual postsurgical chest discomfort syndrome followed by [facility] pain management service. In the past, the patient was seen at [facility] in [place] for the possibility of redo reconstructive surgery [...] I recommend he continue to follow with [facility] plastic surgery service and/or the [facility] plastic surgery service if he would like [...] the patient's chest CT scan done at [facility] in January 2023 he had [...] as prescribed. PVC (premature ventricular contraction) 12/19/19 21 Overview (04/01/2024): Last Assessment & Plan: The [...] Encounters Date Type Department Care Team Description 01/10/2025 11:30 AM EDT Office Visit Pulmonolgy - [place] [address] [facility] [address] [place] [address] Vicenta Salazar MD Chronic obstructive pulmonary disease, unspecified COPD type (CMS/[facility] V24, CMS/[facility] V28) (Primary Dx); Occupational exposure to chemical pollution; Ex-smoker from Last 3 Months Immunizations Name Administration Dates Next Due smsPREP/[employer] SARS-CoV-2 COVID -19, vector-nr, rS-Ad26, preservative free 07/30/2020 Surgical History Surgery Date Site/Laterality Comments CHOLECYSTECTOMY PROCEDURE: HISTORICAL CHOLECYSTECTOMY; COMMENT: acute/chronic cholecystitis// removal 2020 Dr. Peterson, [facility] Medical History Medical History Date Comments Apnea DX:Apnea Asthma DX:Asthma Back pain DX:Back pain COPD (chronic obstructive pu lmonary disease) (CMS/[facility] V24, CMS/HCC V28) DX:COPD (chronic o bstructive pulmonary disease) ([facility]) Depression DX:Depression GERD (gastroesophageal reflux disease) DX:GERD [...] Smoking Tobacco: Former Cigarettes 1 50 1 2020 Passive Smoke Exposure: Past Smokeless Tobacco: [...] Sign Reading Time Taken Comments Blood Pressure 167/82 01/10/2025 11:27 AM EDT Pulse 75 01/10/2025 11:27 AM EDT Temperature 36.4 C (97.5 F) 01/10/2025 11:27 AM EDT Respiratory Rate 19 01/10/2025 11:27 AM EDT Oxygen Saturation 94% 01/10/2025 11:27 AM EDT Inhaled Oxygen Concentration - - Weight 86.7 kg (191 lb 3.2 oz) 01/10/2025 11:27 AM EDT Height 175.3 cm (5' 9 ) 01/10/2025 11:27 AM EDT Body Mass Index 28.24 01/10/2025 11:27 AM EDT Plan of Treatment Upcoming Encounters Date Type Department Care Team (Late st Contact Info) Description 07/18/2025 11:00 AM EST [facility] [address] [phone] 07/18/2025 11:45 AM EST [facility] [address] [phone] Vicenta Salazar MD [address] [address] Health Maintenance Due Date Last Done Comments [...] 04/27/2022 Hypertension/CHF/CAD Annual BMP Blood Test 2022 Depression Screening 05/19/2024 COVID-19 Vaccine ( season) 2025 06/09/2023, 01/22/2022, 08/18/2021, Additional history exists Lung Cancer Screening (Low Dose CT) 04/01/2025 04/01/2024 Zoster Vaccines Completed 05/24/2021, 03/16/2021 RSV Immunization Adult Patients Completed 06/09/2023 Influenza Vaccine Completed 01/06/2025, , 01/06/2023, Additional history exists HIB Vaccines Aged Out [...] Signed Date: 04/02/2024 10:00 ET Workstation ID: [id number] Transcribed By: Self Edit Transcribed Date: 04/02/2024 [...] Recently Relevant to Health Maintenance Insurance MEDICARE [facility] Care Teams Plant Operations Vice President Relationship Specialty Start Date End Date Cesario Hernandez MD [address] [place] [address] PCP - General Internal Medicine 12/15/20
== END 2025-01-28 10:31 | disposition home or self-care (01) ==
LOC: HO.PMC 10:13
PROVIDERS: PCP Internal Medicine; Visit Provider Nurse Practitioner Family
DX: R07.89 Other chest pain (principal); G89.29 Other chronic pain; M25.511 Pain in right shoulder; M25.512 Pain in left shoulder; Z98.890 Other specified postprocedural states; Z79.891 Long term (current) use of opiate analgesic
CPT/HCPCS: 99214; G2211

== ENCOUNTER → 2025-01-28 10:12 | Outpatient (BNVA) | payer MEDICARE, SELFPAY | PROVIDERS: PCP Internal Medicine; Visit Provider Nurse Practitioner Family | DX: M25.511 Pain in right shoulder (principal); M25.512 Pain in left shoulder; Z79.891 Long term (current) use of opiate analgesic; R07.89 Other chest pain; G89.29 Other chronic pain | CPT/HCPCS: 99212 ==

== ENCOUNTER 2025-02-25 09:42 | Outpatient (AMB) | payer MEDICARE, SELFPAY ==
--- NOTE | 2025-02-25 09:45 | A.OFFVIS_ITS ---
Vital Signs 02/25/25 09:52 Height 5 ft 9 in Weight 192 lb 6 oz BMI 28.4 BP 140/68 H Blood Pressure Location Lt brachial Position Sitting Pulse 72 Pulse Source Pulse Oximeter Intake Visit Reasons: PILL COUNT Intake Note: Wilfredo comes in today for apill count to oxycodone-acetaminophen, patient should have 56 tablets and presents with 59 tablets which he last took today 02/1025 at 8:20am. Pain today 09/25 Patient Liaison Required: No Accompanied by: Self / Same As Patient Allergies clindamycin Allergy (Unknown, Verified 02/25/25 09:53) Unknown HPI Comments Details: Patient presents today for a pill count. Patient is supposed to have #56 pills, in his possession has #59 pills. This demonstrates a responsible attitude in regards to the medication regimen. Patient continues to report adequate analgesia on his current regimen of oxycodone-acetaminophen 5-325 mg 1 tab BID prn with no noted side effects. Denies any constipation, nausea, sedation, dizziness, or urinary retention. Patient reports opioid medication allows him to be less symptomatic and more functional. Pain is rated at 5/10. He also takes gabapentin with good tolerance and no side effects. The patient has a history of eczema, which affects primarily the exposed areas of his skin, such as the forearms and elbows. He has been prescribed a cream by a Lead Enterprise Architect to manage the condition, although he did not apply it on the day of the visit. The patient also reports having a cyst on his left groin, which is scheduled for surgical removal on April 08 at [facility]. The cyst has been described as having pus and is located in the left groin area. PRIOR: Patient presents today for a pill count. Patient is supposed to have #52 pills, in his possession has #55 pills, indicating adherence to the prescribed regimen. This demonstrates a responsible attitude in regards to the medication regimen. Patient reports adequate analgesia on his current regimen of oxycodone- acetaminophen 5-325 mg 1 tab BID prn with no noted side effects. Patient suffers from chronic pain related to thoracotomy and CABG surgery performed in 2022, primarily manifesting in episodic exacerbations after certain physical activities. Pain is managed with oxycodone/acetaminophen 5/325 mg twice daily as needed, and the medication count has been consistent and correct. Additional management includes topical analgesics, activity modifications, and heat/ice therapy. The patient denies smoking but reports possible secondary exposure to tobacco smoke, as indicated by a positive cotinine test, otherwise recent random UDS was concordant. He does not use nicotine patches or other nicotine products. Denies any chest pain or tightness or shortness of breaths, constipation, nausea, sedation, dizziness, or urinary retention. Pain is rated at 6/10. He also takes gabapentin with good tolerance and no side effects. Denies any recent cough, cold, infection, fever, or any significant changes in his medical history, medications or recent hospitalizations. [facility] Medical History Chest pain Blunt chest trauma Hyperlipidemia COPD (chronic obstructive pulmonary disease) IBS (irritable bowel syndrome) Insomnia Tobacco abuse disorder Hypertension Hematuria History of esophageal reflux Depression Back pain Apnea ASHD (arteriosclerotic heart disease) Asthma Surgical History History of thoracic surgery (~01/2023) Hx of cholecystectomy (~2020) S/P CABG x 5 (~12/2022) Social History Alcohol intake: current Alcohol intake frequency: holidays/special occasions only Patient Tobacco Use Status: Current someday Tobacco user Tobacco use type: Cigarette Review of Systems Const Details: - Dermatological: Reports dry skin on forearms and elbows, managed with prescribed cream. - Cardiovascular: Denies current use of blood thinners, but takes baby aspirin daily, reports easily bruising and bleeding when skin scratched in forearms. All systems reviewed & are unremarkable except as noted in HPI and below Physical Exam General: Appears afebrile. Alert and oriented. Mood and affect appropriate. Follows and participates in conversation appropriately. Respiratory effort is unlabored. No cough. Able to transition from sit to stand unassisted. Ambulates with bilaterally normal heel strike and toe off. Eyes General: appearance normal, both eyes and all related structures Resp Effort & Inspection: normal respiratory effort, able to speak in complete sentences, no cough and no respiratory distress Extrem General: Yes capillary refill normal, Yes no clubbing, cyanosis or edema and Yes no calf tenderness Psych Appearance: grossly normal and well kempt Mental Status: mental status grossly normal Speech and movement: Normal speech and movement present and Clear speech present Affect: normal affect Attitude: cooperative Thought process: Normal thought process present Thought content: Normal thought content present, suicidality (none), no hallucinations and No Depressive thoughts present Insight: Good insight present (Psych) Judgement: Good judgement present (Psych) Results Reviewed Results Reviewed: No imaging is available for review. Assessment & Plan Assessment & Plan (1) Chronic chest wall pain: Code(s): R07.89 - Other chest pain; G89.29 - Other chronic pain Category: Medical (2) Bilateral shoulder pain: Code(s): M25.511 - Pain in right shoulder; M25.512 - Pain in left shoulder Category: Medical (3) History of thoracic surgery: Onset Date: ~01/2023 Comment[place] [facility] [place]: open wound sternum and mediastinum 30 cm x 8 cm, with exposed hear t, s/p reconstruction anterior chest wall with bilateral pectoralis major myocutaneous flap and open biopsy of sternum bone and treatment of osteomyelitis of sternum Code(s): Z98.890 - Other specified postprocedural states Category: Surgical (4) Opioid contract exists: Code(s): Z79.891 - terminal computer operator (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 There is no evidence of misuse, abuse or diversion at this time. MassPat reviewed. Refill for Percocet 5 mg-325 mg BID prn is sent with advanced date of 03/25/25. Patient has Narcan at home. Continue gabapentin 300 mg TID, monitor for any side effects, precautions were reviewed with patient. The cyst on the left groin is scheduled for surgical removal on April 08 at [facility]. Pre-operative instructions include a consultation with a PAT nurse on March 21 to discuss medication adjustments prior to surgery. The patient is informed that additional pain management may be provided post- surgery, either by the surgical team or through our office. All questions were answered and the patient is in agreement with the plan. Follow up in 4-5 weeks for pill count and sooner as needed. Patient was informed and verbally consented to the use of an ambient scribe for clinic note documentation during this visit. Medications: Refilled oxycodone-acetaminophen 5-325 mg Partial Fill upon patient request. 1 tab PO BID PRN 60 tabs 0RF pain 30 days G89.29 - Other chronic pain, M25.511 - Pain in right shoulder, M25.512 - Pain in left shoulder, R07.89 - Other chest pain, Z98.890 - Other specified postprocedural states Coding Level of Care Code Est Pt Level 4 (65540) Complex EM visit Add On G2211 Diagnoses Chronic chest wall pain R07.89; G89.29 Bilateral shoulder pain M25.511; M25.512 History of thoracic surgery Z98.890 Opioid contract exists Z79.891
[2025-02-25 09:52] VITALS: BP 140/68; PULSE 72; BMI 28.4
--- OUTSIDE RECORDS SUMMARY | 2025-02-25 10:23 | XMS_ITS | Clinical Summary ---
Author Organization [facility] Address [address] [place] [address] Care Team Providers Care Ocean Forwarder Name Role Phone Cesario Hernandez MD Primary Care Provider [phone] Allergies Active Allergy Reactions Criticality Noted Date [...] today by the cardiac surgery office at [facility]. He will be evaluated by Dr. [...] a chest x-ray that was done at [facility] on 04/19/2022. The chest x-ray was [...] had a chest CT scan done at [facility] on 04/22/2022 and this study also [...] that he would be contacted by the [facility] cardiac surgery office to arrange an [...] age to complete this topic Care Teams Ocean Forwarder Relationship Specialty Start Date End Date Cesario Hernandez MD [address] [facility] [address] [place] [address] PCP - General Flight Engineer Inspector 04/15/23
--- OUTSIDE RECORDS SUMMARY | 2025-02-25 10:23 | XMS_ITS | Clinical Summary ---
Author Organization [facility] Address [address] [place] [address] Phone Care Team Providers Care Reefer Truck Driver Name Role Phone Ceasrio Hernandez MD Primary Care Provider [phone] Allergies Active Allergy Reactions Criticality Noted Date [...] (two) times a day. 3 Active lisinopriL (PRINIVIL,ZESTRI L) 5 mg tablet [...] 3 each 3 5 01/18/20 26 Active Active Problems Problem Noted Date Diagnosed [...] myocutaneous flap in January 2023 followed by [facility] plastic surgery service. He has chronic residual postsurgical chest discomfort syndrome followed by [place] pain management service. In the past, the patient was seen at [facility] in [place] for the possibility of redo reconstructive surgery [...] I recommend he continue to follow with [facility] plastic surgery service and/or the [place] plastic surgery service if he would like to be a candidate for redo surgery in the future. [facility] 02/13/2024 Overview (04/01/2024): Last Assessment & Plan: [...] the patient's chest CT scan done at [facility] in January 2023 he had evidence [...] regimen as prescribed. PVC (premature ventricular contraction) 08/02/20 21 Overview (04/01/2024): Last Assessment & Plan: [...] Description 01/10/2025 11:30 AM EDT Office Visit Pulmonology - [address] [place] [phone] Vicenta Salazar MD Chronic obstructive pulmonary disease, unspecified COPD type ([facility] V24, [facility] V28) (Primary Dx); Occupational exposure to chemical pollution; Ex-smoker from Last 3 Months Immunizations Immunization Administration Dates Next Due [employer] SARS-CoV-2 COVID -19, vector-nr, rS-Ad26, preservative free 07/30/2020 Surgical History Surgery Date Site/Laterality Comments CHOLECYSTECTOMY PROCEDURE: HISTORICAL CHOLECYSTECTOMY; COMMENT: acute/chronic cholecystitis// removal 2020 Dr. Peterson, [facility] Medical History Medical History Date Comments Apnea DX:Apnea Asthma DX:Asthma Back pain DX:Back pain COPD (chronic obstructive pu lmonary disease) ([facility] V24, [facility] V28) DX:COPD (chronic o bstructive pulmonary disease) ([facility]) Depression DX:Depression GERD (gastroesophageal reflux disease) DX:GERD [...] Care Team (Late st Contact Info) Description 04/07/2025 11:00 AM EST Appointment [facility] CT Scan [address] [place] [address] 06/15/2025 10:10 AM EST Office Visit [facility] - [facility] [address] [facility] [address] [place] [phone] Anali Murillo, JACLYN [address] [facility] [address] [place] [address] 07/18/2025 11:00 AM EST Ancillary Procedure Pulmonology - [place] [address] [facility] [address] [place] [phone] 07/18/2025 11:45 AM EST Office Visit Pulmonology - [place] [address] [facility] [address] [place] [phone] Vicenta Salazar MD [address] [facility] [address] [place] [address] Health Maintenance Due Date Last Done Comments Colorectal Cancer Screening: Colonoscopy 1955 DTaP,Tdap,and Td Vaccines (1 - Tdap) 1975 Pneumococcal Vaccine: 50+ Years (2 of 2 - PCV) 02/12/2022 02/12/2021 Abdominal Aortic Aneurysm (AAA) Screen 04/27/2022 Cholesterol Screening (Lipid Panel) 04/27/2022 Falls Risk Assessment 04/27/2022 Hepatitis C [...] Signed Date: 04/02/2024 10:00 ET Workstation ID: [id number] Transcribed By: Self Edit Transcribed Date: 04/02/2024 [...] Recently Relevant to Health Maintenance Insurance MEDICARE [facility] Care Teams Reefer Truck Driver Relationship Specialty Start Date End Date Cesario Hernandez MD [address] [place] [address] PCP - General Internal Medicine 12/15/20
== END 2025-02-25 10:01 | disposition home or self-care (01) ==
LOC: HO.PMC 09:42
PROVIDERS: PCP Internal Medicine; Visit Provider Nurse Practitioner Family
DX: R07.89 Other chest pain (principal); G89.29 Other chronic pain; M25.511 Pain in right shoulder; M25.512 Pain in left shoulder; Z98.890 Other specified postprocedural states; Z79.891 Long term (current) use of opiate analgesic
CPT/HCPCS: 99214; G2211

== ENCOUNTER → 2025-02-25 09:42 | Outpatient (BNVA) | payer MEDICARE, SELFPAY | PROVIDERS: PCP Internal Medicine; Visit Provider Nurse Practitioner Family | DX: M25.511 Pain in right shoulder (principal); M25.512 Pain in left shoulder; R07.89 Other chest pain; G89.29 Other chronic pain; Z79.891 Long term (current) use of opiate analgesic | CPT/HCPCS: 99212 ==

== ENCOUNTER 2025-04-01 10:14 | Outpatient (AMB) | payer MEDICARE, SELFPAY ==
--- NOTE | 2025-04-01 10:16 | A.OFFVIS_ITS ---
Vital Signs 04/01/25 10:29 Height 5 ft 9 in Weight 192 lb 2 oz BMI 28.4 BP 122/60 Blood Pressure Location Lt brachial Position Sitting Pulse 78 Pulse Source Pulse Oximeter Pulse Oximetry (%) 96 Oxygen Delivery Method Room Air Intake Visit Reasons: Pill Count Intake Note: Wilfredo comes in today for a pill count to oxycodone-acetaminophen, patient should have 48 tablets and presents with 49 tablets which he last took today 04/01/25 at 7:30am. Pain today 11/25 Tv Technician Required: No Allergies clindamycin Allergy (Unknown, Verified 04/01/25 10:30) Unknown HPI Comments Details: Patient presents today for a pill count. Patient is supposed to have #48 pills, in his possession has #49 pills. This demonstrates a responsible attitude in regards to the medication regimen. Patient continues to report adequate analgesia on his current regimen of oxycodone-acetaminophen 5-325 mg 1 tab BID prn with no noted side effects. Denies any constipation, nausea, sedation, dizziness, or urinary retention. Patient reports opioid medication allows him to be less symptomatic and more functional. Pain is rated at 7/10. He also takes gabapentin with good tolerance and no side effects. Patient suffers from chronic pain related to thoracotomy and CABG surgery performed in 2022, primarily manifesting in episodic exacerbations after certain physical activities. Patient also reports right hip pain is described as soreness, primarily occurring when lying on the side, and it does not radiate to the groin. The patient denies any known arthritis in the hip and attributes the pain to recent physical activities, like walking his son's dog, yard work and sleeping on a firm mattress. The patient also reports having a cyst on his left groin, which is scheduled for surgical removal on April 08 at [facility]. Denies any recent cough, cold, infection, fever, dizziness, constipation, or any significant changes in his medical history, medications or recent hospitalizations. [facility] Medical History Chest pain Blunt chest trauma Hyperlipidemia COPD (chronic obstructive pulmonary disease) IBS (irritable bowel syndrome) Insomnia Tobacco abuse disorder Hypertension Hematuria History of esophageal reflux Depression Back pain Apnea ASHD (arteriosclerotic heart disease) Asthma Surgical History History of thoracic surgery (~01/2023) Hx of cholecystectomy (~2020) S/P CABG x 5 (~12/2022) Social History Alcohol intake: current Alcohol intake frequency: holidays/special occasions only Patient Tobacco Use Status: Current someday Tobacco user Tobacco use type: Cigarette Review of Systems Const All systems reviewed & are unremarkable except as noted in HPI and below Physical Exam Vital Signs: Last Vital Signs Pulse 78 04/01/25 10:29 BP 122/60 04/01/25 10:29 Pulse Ox 96 04/01/25 10:29 Oxygen Delivery Method Room Air 04/01/25 10:29 BMI result Body Mass Index 28.4 General: Appears afebrile. Alert and oriented. Mood and affect appropriate. Follows and participates in conversation appropriately. Respiratory effort is unlabored. No cough. Able to transition from sit to stand unassisted. Ambulates with bilaterally normal heel strike and toe off. Eyes General: appearance normal, both eyes and all related structures Resp Effort & Inspection: normal respiratory effort, able to speak in complete sentences, no cough and no respiratory distress Extrem General: Yes capillary refill normal, Yes no clubbing, cyanosis or edema and Yes no calf tenderness Psych Appearance: grossly normal and well kempt Mental Status: mental status grossly normal Speech and movement: Normal speech and movement present and Clear speech present Affect: normal affect Attitude: cooperative Thought process: Normal thought process present Thought content: Normal thought content present, suicidality (none), no hallucinations and No Depressive thoughts present Insight: Good insight present (Psych) Judgement: Good judgement present (Psych) Assessment & Plan Assessment & Plan (1) Chronic chest wall pain: Code(s): R07.89 - Other chest pain; G89.29 - Other chronic pain Category: Medical (2) Bilateral shoulder pain: Code(s): M25.511 - Pain in right shoulder; M25.512 - Pain in left shoulder Category: Medical (3) History of thoracic surgery: Onset Date: ~01/2023 Comment: [facility] 02/10/23: open wound sternum and mediastinum 30 cm x 8 cm, with exposed heart, s/p reconstruction anterior chest wall with bilateral pectoralis major myocutaneous flap and open biopsy of sternum bone and treatment of osteomyelitis of sternum Code(s): Z98.890 - Other specified postprocedural states Category: Surgical (4) Opioid contract exists: Code(s): Z79.891 - halfway (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 There is no evidence of misuse, abuse or diversion at this time. [employer] reviewed. Refill for Percocet 5 mg-325 mg BID prn is sent with advanced date of 04/23/25. Patient has Narcan at home. Continue gabapentin 300 mg TID, monitor for any side effects, precautions were reviewed with patient. The cyst on the left groin is scheduled for surgical removal on April 08 at [facility]. The patient is informed that additional pain management may be provided post-surgery, either by the surgical team or through our office. All questions were answered and the patient is in agreement with the plan. Fol low up in 4-5 weeks for pill count and sooner as needed. Patient was informed and verbally consented to the use of an ambient scribe for clinic note documentation during this visit. Medications: Refilled oxycodone-acetaminophen 5-325 mg Partial Fill upon patient request. 1 tab PO BID PRN 60 tabs 0RF pain 30 days G89.29 - Other chronic pain, M25.511 - Pain in right shoulder, M25.512 - Pain in left shoulder, R07.89 - Other chest pain, Z98.890 - Other specified postprocedural states Coding Level of Care Code Est Pt Level 4 (01837) Complex EM visit Add On G2211 Diagnoses Chronic chest wall pain R07.89; G89.29 Bilateral shoulder pain M25.511; M25.512 History of thoracic surgery Z98.890 Opioid contract exists Z79.891
[2025-04-01 10:29] VITALS: BP 122/60; PULSE 78; O2SAT 96; BMI 28.4
--- OUTSIDE RECORDS SUMMARY | 2025-04-01 12:48 | XMS_ITS | Clinical Summary ---
Author Organization [facility] Address [address] [place] [address] Phone Care Team Providers Care Financial Services Associate Name Role Phone Cesario Hernandez MD Primary Care Provider [phone] Allergies Active Allergy Reactions Criticality Noted Date [...] by mouth 1 (one) time each day. 03/04/20 22 Active fluticasone propionate (FLONASE) 50 mcg/actuation nasal [...] 1 tablet (20 mg total) by mouth. 12/05/19 21 Active terazosin (HYTRIN) 5 mg capsule Take 1 capsule (5 mg total) by mouth 2 (two) times a day. 02/15/20 23 Active lisinopriL (PRINIVIL,ZESTR IL) 5 mg tablet TAKE 1 TABLET BY MOUTH EVERY DAY 90 tablet 2 07/20/19 25 Active gabapentin (NEURONTIN) 300 mg capsule Take 1 capsule (300 mg total) by mouth 3 (three) times a day. Active oxyCODONE-aceta minophen (PERCOCET) 5-325 mg per tablet Take 1 tablet by mouth 2 (two) times a day if needed. Active multivitamin tablet Take 1 tablet by mouth 1 (one) time each day. Active atorvastatin (LIPITOR) 80 mg tablet TAKE 1 TABLET BY MOUTH EVERY DAY 90 tablet 2 10/15/19 25 Active Combivent Respimat 20-100 mcg/actuation inhaler Inhale 1 puff by mouth 4 (four) times a day. 3 each 3 01/18/20 25 026 Active metoprolol succinate (TOPROL-XL) 100 mg 24 hr tablet TAKE 1 TABLET BY MOUTH 1 TIME EACH DAY. DO NOT CRUSH OR CHEW. 90 tablet 1 03/11/20 25 Active metoprolol succinate (Toprol XL) 100 mg 24 hr tablet Take 1 tablet (100 mg total) by mouth 1 (one) time each day. Do not crush or chew. 90 each 1 09/09/19 25 025 Discontinued Active Problems Problem Noted Date Diagnosed Date [...] myocutaneous flap in January 2023 followed by [facility] plastic surgery service. He has chronic residual postsurgical chest discomfort syndrome followed by [place] pain management service. In the past, the patient was seen at [facility] in [place] for the possibility of redo reconstructive surgery [...] I recommend he continue to follow with [facility] plastic surgery service and/or the [place] plastic surgery service if he would like [...] the patient's chest CT scan done at [facility] in January 2023 he had evidence [...] Encounters Date Type Department Care Team Description 03/15/2025 Telephone Lung Screening Program - [place] [address] [facility] [address] [place] [address] [facility] [place] 01/10/2025 11:30 AM EDT Office Visit Pulmonology - [place] [address] [facility] [address] [place] [address] Vicenta Salazar MD Chronic obstructive pulmonary disease, unspecified COPD type ([facility] V24, [facility] V28) (Primary Dx); Occupational exposure to chemical pollution; Ex-smoker from Last 3 Months Immunizations Immunization Administration Dates Next Due [employer] SARS-CoV-2 COVID -19, vector-nr, rS-Ad26, preservative free 07/30/2020 Surgical History Surgery Date Site/Laterality Comments CHOLECYSTECTOMY PROCEDURE: HISTORICAL CHOLECYSTECTOMY; COMMENT: acute/chronic cholecystitis// removal 2020 Dr. Peterson, [facility] Medical History Medical History Date Comments Apnea DX:Apnea Asthma DX:Asthma Back pain DX:Back pain COPD (chronic obstructive pu lmonary disease) ([facility] V24, [facility] V28) DX:COPD (chronic o bstructive pulmonary disease) ([facility]) Depression DX:Depression GERD (gastroesophageal reflux disease) DX:GERD [...] Smoking Tobacco: Former Cigarettes 1 50 1 [id number] Passive Smoke Exposure: Past Smokeless Tobacco: Former [...] Info) Description 04/07/2025 11:00 AM EST Appointment [facility] CT Scan [address] [place] [address] 06/15/2025 10:10 AM EST Office Visit [facility] - [facility] [address] [facility] [address] [place] [address] Anali Murillo, JACLYN [address] [place] [address] [place] [address] 07/18/2025 11:00 AM EST Ancillary Procedure Pulmonology - [place] [address] [facility] [address] [place] [phone] 07/18/2025 11:45 AM EST Office Visit Pulmonology - [place] [address] [facility] [address] [place] [phone] Vicenta Salazar MD [facility] [place] [address] Health Maintenance Due Date Last Done Comments [...] Signed Date: 04/02/2024 10:00 ET Workstation ID: [id number] Transcribed By: Self Edit Transcribed Date: 04/02/2024 [...] Recently Relevant to Health Maintenance Insurance MEDICARE [facility] Care Teams Financial Services Associate Relationship Specialty Start Date End Date Cesario Hernandez MD [address] [place] [address] PCP - General Internal Medicine 12/15/20
--- OUTSIDE RECORDS SUMMARY | 2025-04-01 12:48 | XMS_ITS | Clinical Summary ---
Author Organization [facility] Address [address] [place] [id number] Care Team Providers Care System Sales Consultant Name Role Phone Cesario Hernandez MD Primary Care Provider [phone] Allergies Active Allergy Reactions Criticality Noted Date [...] today by the cardiac surgery office at [facility]. He will be evaluated by Dr. [...] The patient had a CABG x5 at [facility] on 01/08/[address] Pantoja. On today's visit, the patient brought a report of a chest x-ray that was done at [facility] on 04/19/2022. The chest x-ray was [...] had a chest CT scan done at [facility] on 04/22/2022 and this study also [...] that he would be contacted by the [facility] cardiac surgery office to arrange an [...] age to complete this topic Care Teams System Sales Consultant Relationship Specialty Start Date End Date Cesario Hernandez MD [address] [facility] [address] [place] [address] PCP - General Public Works Technician 04/15/23
== END 2025-04-01 10:34 | disposition home or self-care (01) ==
LOC: HO.PMC 10:15
PROVIDERS: PCP Internal Medicine; Visit Provider Nurse Practitioner Family
DX: R07.89 Other chest pain (principal); G89.29 Other chronic pain; M25.511 Pain in right shoulder; M25.512 Pain in left shoulder; Z98.890 Other specified postprocedural states; Z79.891 Long term (current) use of opiate analgesic
CPT/HCPCS: 99214; G2211

== ENCOUNTER → 2025-04-01 10:14 | Outpatient (BNVA) | payer MEDICARE, SELFPAY | PROVIDERS: PCP Internal Medicine; Visit Provider Nurse Practitioner Family | DX: M25.511 Pain in right shoulder (principal); M25.512 Pain in left shoulder; R07.89 Other chest pain; G89.29 Other chronic pain; Z98.890 Other specified postprocedural states; Z79.891 Long term (current) use of opiate analgesic; Z72.0 Tobacco use | CPT/HCPCS: 99212 ==

== ENCOUNTER 2025-04-29 10:11 | Outpatient (AMB) | payer MEDICARE, SELFPAY ==
--- NOTE | 2025-04-29 10:25 | MHC.OFFVIS ---
Vital Signs 04/29/25 10:37 Height 5 ft 9 in Weight 195 lb 8 oz BMI 28.9 BP 132/80 Blood Pressure Location Lt brachial Position Sitting Pulse 72 Pulse Source Pulse Oximeter Pulse Oximetry (%) 96 Oxygen Delivery Method Room Air Intake Visit Reasons: Pill Count Intake Note: Wilfredo comes in today for a pill count to oxycodone-acetaminophen, patient should have 50 tablets and presents with 53 tablets which he last took today 04/29/25 at 8am. Principal Solutions Architect Required: No Accompanied by: Self / Same As Patient Allergies clindamycin Allergy (Unknown, Verified 04/29/25 10:41) Unknown HPI Comments Details: Patient presents today for a pill count. Patient is supposed to have #50 pills, in his possession has #53 pills. This demonstrates a responsible attitude in regards to the medication regimen. Patient continues to report adequate analgesia on his current regimen of oxycodone-acetaminophen 5-325 mg 1 tab BID prn with no noted side effects. Denies any constipation, nausea, sedation, dizziness, or urinary retention. Patient reports opioid medication allows him to be less symptomatic and more functional. Pain is rated at 4/10. He also takes gabapentin with good tolerance and no side effects. Patient suffers from chronic pain related to thoracotomy and CABG surgery performed in 2022, primarily manifesting in episodic exacerbations after certain physical activities. Patient also reports right hip pain is described as soreness, primarily occurring when lying on the side, and it does not radiate to the groin. The patient denies any known arthritis in the hip and attributes the pain to recent physical activities, like walking his son's dog, yard work and sleeping on a firm mattress. Patient reports recovering from a cyst removal in the left groin, which was an outpatient procedure performed on April 08 at [facility]. Postoperatively, the wound opened up because a single stitch that was placed had broken. He was evaluated by a PA who removed the broken stitch and instructed him on wound care, including daily cleaning with Vashe solution. A follow-up appointment is scheduled with the surgeon's office for next Friday to assess healing. He was not prescribed any additional pain medication for the procedure and has been recovering well otherwise. He is adhering to activity restrictions, including no heavy lifting and no shoveling snow. Denies any recent cough, cold, infection, fever, dizziness, constipation, or any significant changes in his medical history, medications or recent hospitalizations. [facility] Medical History Chest pain Blunt chest trauma Hyperlipidemia COPD (chronic obstructive pulmonary disease) IBS (irritable bowel syndrome) Insomnia Tobacco abuse disorder Hypertension Hematuria History of esophageal reflux Depression Back pain Apnea ASHD (arteriosclerotic heart disease) Asthma Surgical History History of thoracic surgery (~01/2023) Hx of cholecystectomy (~2020) S/P CABG x 5 (~12/2022) Social History Alcohol intake: current Alcohol intake frequency: holidays/special occasions only Patient Tobacco Use Status: Current someday Tobacco user Tobacco use type: Cigarette Review of Systems Const All systems reviewed & are unremarkable except as noted in HPI and below Physical Exam Vital Signs: Last Vital Signs Pulse 72 04/29/25 10:37 BP 132/80 04/29/25 10:37 Pulse Ox 96 04/29/25 10:37 Oxygen Delivery Method Room Air 04/29/25 10:37 BMI result Body Mass Index 28.9 General: Appears afebrile. Alert and oriented. Mood and affect appropriate. Follows and participates in conversation appropriately. Respiratory effort is unlabored. No cough. Able to transition from sit to stand unassisted. Ambulates with bilaterally normal heel strike and toe off. Eyes General: appearance normal, both eyes and all related structures Resp Effort & Inspection: normal respiratory effort, able to speak in complete sentences, no cough and no respiratory distress Extrem General: Yes capillary refill normal, Yes no clubbing, cyanosis or edema and Yes no calf tenderness Psych Appearance: grossly normal and well kempt Mental Status: mental status grossly normal Speech and movement: Normal speech and movement present and Clear speech present Affect: normal affect Attitude: cooperative Thought process: Normal thought process present Thought content: Normal thought content present, suicidality (none), no hallucinations and No Depressive thoughts present Insight: Good insight present (Psych) Judgement: Good judgement present (Psych) Results Reviewed Results Reviewed: No imaging is available for review. Assessment & Plan Assessment & Plan (1) Chronic chest wall pain: Code(s): R07.89 - Other chest pain; G89.29 - Other chronic pain Category: Medical (2) Bilateral shoulder pain: Code(s): M25.511 - Pain in right shoulder; M25.512 - Pain in left shoulder Category: Medical (3) History of thoracic surgery: Onset Date: ~01/2023 Comment: [facility] 02/10/23: open wound sternum and mediastinum 30 cm x 8 cm, with exposed heart, s/p reconstruction anterior chest wall with bilateral pectoralis major myocutaneous flap and open biopsy of sternum bone and treatment of osteomyelitis of sternum Code(s): Z98.890 - Other specified postprocedural states Category: Surgical (4) Opioid contract exists: Code(s): Z79.891 - longterm (current) use of opiate analgesic Category: Medical (5) H/O removal of cyst: Code(s): Z98.890 - Other specified postprocedural states Category: Surgical Plan Patient has shown accountability for her medication regimen and the pill count was accurate. There is no evidence of misuse, abuse or diversion at this time. [employer] reviewed. Refill for Percocet 5 mg-325 mg BID prn is sent with advanced date of 05/23/25. Patient has Narcan at home. Continue gabapentin 300 mg TID, monitor for any side effects, precautions were reviewed with patient. Patient will continue daily wound care for the left groin with Vashe solution as previously instructed. He is to follow up with the PA next Friday for wound re-evaluation. He should continue to adhere to activity restrictions, including no heavy lifting and no shoveling snow. All questions were answered and the patient is in agreement with the plan. Follow up in 4-5 weeks for pill count and sooner as needed. Patient was informed and verbally consented to the use of an ambient scribe for clinic note documentation during this visit. Medications: Refilled oxycodone-acetaminophen 5-325 mg Partial Fill upon patient request. 1 tab PO BID PRN 60 tabs 0RF pain 30 days G89.29 - Other chronic pain, M25.511 - Pain in right shoulder, M25.512 - Pain in left shoulder, R07.89 - Other chest pain, Z98.890 - Other specified postprocedural states Coding Level of Care Code Est Pt Level 4 (08306) Diagnoses Chronic chest wall pain R07.89; G89.29 Bilateral shoulder pain M25.511; M25.512 History of thoracic surgery Z98.890 Opioid contract exists Z79.891 H/O removal of cyst Z98.890
[2025-04-29 10:37] VITALS: BP 132/80; PULSE 72; O2SAT 96; BMI 28.9
== END 2025-04-29 10:47 | disposition home or self-care (01) ==
LOC: HO.PMC 10:12
PROVIDERS: PCP Internal Medicine; Visit Provider Nurse Practitioner Family
DX: R07.89 Other chest pain (principal); G89.29 Other chronic pain; M25.511 Pain in right shoulder; M25.512 Pain in left shoulder; Z98.890 Other specified postprocedural states; Z79.891 Long term (current) use of opiate analgesic
CPT/HCPCS: 99214

== ENCOUNTER → 2025-04-29 10:11 | Outpatient (BNVA) | payer MEDICARE, SELFPAY | PROVIDERS: PCP Internal Medicine; Visit Provider Nurse Practitioner Family | DX: M25.511 Pain in right shoulder (principal); M25.512 Pain in left shoulder; R07.89 Other chest pain; G89.29 Other chronic pain | CPT/HCPCS: 99212 ==